=== PATIENT | female | born 1940 | race Caucasian/White ===

== ENCOUNTER 2017-05-28 19:40 | Emergency (ER) | payer MEDICARE, BC ==
[~2017-05-28 19:40] MED LIST: BACDS PO; CYPR4TAB32 PO; LANI SC; METF-409 PO; METF-420 PO; PHENA200 PO; VALS160T20 PO; [UNRECOGNIZED DRUG - CODE] TP
--- NOTE | 2017-05-28 19:46 | ER Report ---
History and Physical Time Seen By MD: 19:46 Allergies: Coded Allergies: Sulfa (Sulfonamide Antibiotics) (Verified Allergy, Intermediate, 01/20/12) latex (Verified Allergy, Mild, 01/20/12) Home Meds Active Scripts Gly/Min Oil/Petrolat,Wht/Water (LUBRIDERM SENSITIVE SKIN LOT) 473 Ml Lotion, 473 ML TP BID, #1 TAB 0 Refills Prov:INGE HARRINGTON MD 04/21/17 Cyproheptadine Hcl (CYPROHEPTADINE HCL) 4 Mg Tablet, 4 MG PO Q8H for itching, # 30 TAB 0 Refills Prov:INGE HARRINGTON MD 04/21/17 Reported Medications Metformin Hcl (METFORMIN HCL) 1,000 Mg Tablet, 1 TAB PO BID, TAB 04/21/17 Insulin Glargine (Lantus) 100 U/Ml Soln, 15 U SC QDAY, 0 Refills 06/25/07 Reviewed Nurses Notes: Yes Old Medical Records Reviewed: Yes Hx Smoking: No Hx Substance Use Disorder: No Hx Alcohol Use: No Depart Departure Referrals: GIAN KELLER DO (PCP) ZAY LECHUGA DO May 28, 2017 19:46
--- NOTE | 2017-05-28 20:06 | ER Report ---
History and Physical Time Seen By MD: 19:47 Hx. of Stated Complaint: Patient states she hurts all over since sunday night. Dx with uti last but has since stopped taking antibiotics due to adverse reactions. Stopped antibiotic last night. No flu shot. Pt states even her fingertips hurt. No SOB or NVD. HPI/ROS CHIEF COMPLAINT: Malaise HISTORY OF PRESENT ILLNESS: Patient is a 76-year-old female who presents to ED with complaint of not feeling well for the past day. She states that she was diagnosed with urinary tract infection by Dr. Parra, urologist 5 days ago. She states that she was started on Cipro and did take this until yesterday. She states that she was starting to feel achy and thought that the Cipro might be causing this. She states that she is having pain all over particularly in her arms and left leg. She denies any chest pain or shortness of breath. She has not really noted any abdominal pain, nausea, vomiting, diarrhea. She denies any cough. She has not noted any fever. She denies any marked dysuria or increased urinary frequency. REVIEW OF SYSTEMS: Constitutional: No fever, no chills. Eyes: No discharge. ENT: No sore throat. Cardiovascular: No chest pain, no palpitations. Respiratory: No cough, no shortness of breath. Gastrointestinal: No abdominal pain, no vomiting. Genitourinary: No hematuria. Musculoskeletal: History of present illness. Skin: No rashes. Neurological: No headache. Allergies: Coded Allergies: Sulfa (Sulfonamide Antibiotics) (Verified Allergy, Intermediate, 01/20/12) latex (Verified Allergy, Mild, 01/20/12) Home Meds Active Scripts Gly/Min Oil/Petrolat,Wht/Water (LUBRIDERM SENSITIVE SKIN LOT) 473 Ml Lotion, 473 ML TP BID, #1 TAB 0 Refills Prov:INGE HARRINGTON MD 04/21/17 Cyproheptadine Hcl (CYPROHEPTADINE HCL) 4 Mg Tablet, 4 MG PO Q8H for itching, # 30 TAB 0 Refills Prov:INGE HARRINGTON MD 04/21/17 Reported Medications Metformin Hcl (METFORMIN HCL) 1,000 Mg Tablet, 1 TAB PO BID, TAB 04/21/17 Insulin Glargine (Lantus) 100 U/Ml Soln, 15 U SC QDAY, 0 Refills 06/25/07 Reviewed Nurses Notes: Yes Old Medical Records Reviewed: Yes Hx Smoking: No Hx Substance Use Disorder: No Hx Alcohol Use: No Constitutional Vital Sign - Last 24 Hours 05/28/17 05/28/17 05/28/17 05/28/17 19:46 19:49 19:50 19:55 Temp 97.1 Pulse 90 86 85 Resp 20 B/P (MAP) 127/88 127/88 (101) Pulse Ox 98 98 98 O2 Delivery Room Air 05/28/17 05/28/17 05/28/17 05/28/17 20:00 20:20 20:25 20:30 Pulse 79 78 78 77 B/P (MAP) 144/80 (101) 149/84 (105) Pulse Ox 95 97 96 93 05/28/17 05/28/17 05/28/17 20:35 20:40 20:45 Pulse 77 75 77 B/P (MAP) 144/80 (101) Pulse Ox 92 92 93 Physical Exam General Appearance: The patient is alert, has no immediate need for airway protection and no signs of toxicity. Patient appears to be no acute distress. Eyes: Pupils equal and round no pallor or injection. ENT, Mouth: Mucous membranes are moist. Respiratory: There are no retractions, lungs are clear to auscultation. Cardiovascular: Regular rate and rhythm. Gastrointestinal: There is mild epigastric tenderness with palpation. No rebound or guarding present. Bowel sounds normal all 4 quadrants. Neurological: Cranial nerves II-12 intact. Skin: Warm and dry, no rashes. Musculoskeletal: Neck is supple non tender. Extremities are nontender, nonswollen and have full range of motion. Medical Decision Making Data Points Result Diagram: 05/28/17202505/28/172025 Laboratory Hematology Test 05/28/17 19:44 05/28/17 20:26 Urine Color Yellow Urine Clarity Slightly-cloudy Urine pH 6.0 pH (4.8-9.5) Urine Specific [place] 1.004 Urine Protein Negative mg/dL (NEGATIVE) Urine Glucose (UA) Negative mg/dL (NEGATIVE) Urine Ketones Negative mg/dL (NEGATIVE) Urine Blood Large (NEGATIVE) Urine Nitrite Negative (NEGATIVE) Urine Bilirubin Negative (NEGATIVE) Urine Urobilinogen Negative mg/dL (0.2-1.9) Urine Leukocyte Esterase Large (NEGATIVE) Urine RBC 20 /HPF (0-2/HPF) Urine WBC 104 /HPF (0-5/HPF) Urine WBC Clumps Few /HPF Urine Squamous Epithelial Cells Many /LPF (</=FEW) Urine Transitional Epithelial Cells Many /LPF (NONE-FEW) Urine Bacteria Negative /HPF (NONE-FEW) Urine Mucus None /HPF (NONE-FEW) Red Blood Count 3.75 M/uL (4.17-5.56) Mean Corpuscular Volume 93.7 fL (80.0-96.0) Mean Corpuscular Hemoglobin 33.8 pg (26.0-33.0) Mean Corpuscular Hemoglobin Concent 36.0 g/dL (32.0-36.0) Red Cell Distribution Width 12.3 % (11.5-14.5) Mean Platelet Volume 7.3 fL (7.2-11.1) Neutrophils (%) (Auto) 66.7 % (39.4-72.5) Lymphocytes (%) (Auto) 23.9 % (17.6-49.6) Monocytes (%) (Auto) 6.5 % (4.1-12.4) Eosinophils (%) (Auto) 1.6 % (0.4-6.7) Basophils (%) (Auto) 1.3 % (0.3-1.4) Nucleated RBC Relative Count (auto) 0.0 /100WBC Neutrophils # (Auto) 6.2 K/uL (2.0-7.4) Lymphocytes # (Auto) 2.2 K/uL (1.3-3.6) Monocytes # (Auto) 0.6 K/uL (0.3-1.0) Eosinophils # (Auto) 0.1 K/uL (0.0-0.5) Basophils # (Auto) 0.1 K/uL (0.0-0.1) Nucleated RBC Absolute Count (auto) 0.00 K/uL Sodium Level 133 mmol/L (137-145) Potassium Level 3.6 mmol/L (3.5-5.0) Chloride Level 103 mmol/L (98-107) Carbon Dioxide Level 22 mmol/L (22-31) Blood Urea Nitrogen 8 mg/dl (7-18) Creatinine 0.60 mg/dl (0.52-1.04) Glomerular Filtration Rate Calc > 60.0 Random Glucose 173 mg/dl (75-110) Calcium Level 8.7 mg/dl (8.4-10.2) Total Bilirubin 0.7 mg/dl (0.2-1.3) Aspartate Amino Transf (AST/SGOT) 21 U/L (0-35) Alanine Aminotransferase (ALT/SGPT) 33 U/L (0-56) Alkaline Phosphatase 124 U/L (0-126) Total Creatine Kinase 38 U/L (30-135) Troponin I < 0.012 ng/ml Total Protein 6.5 gm/dl (6.3-8.2) Albumin 3.2 g/dl (3.5-5.0) Lipase 31 U/L (23-300) Chemistry Test 05/28/17 19:44 05/28/17 20:26 Urine Color Yellow Urine Clarity Slightly-cloudy Urine pH 6.0 pH (4.8-9.5) Urine Specific [place] 1.004 Urine Protein Negative mg/dL (NEGATIVE) Urine Glucose (UA) Negative mg/dL (NEGATIVE) Urine Ketones Negative mg/dL (NEGATIVE) Urine Blood Large (NEGATIVE) Urine Nitrite Negative (NEGATIVE) Urine Bilirubin Negative (NEGATIVE) Urine Urobilinogen Negative mg/dL (0.2-1.9) Urine Leukocyte Esterase Large (NEGATIVE) Urine RBC 20 /HPF (0-2/HPF) Urine WBC 104 /HPF (0-5/HPF) Urine WBC Clumps Few /HPF Urine Squamous Epithelial Cells Many /LPF (</=FEW) Urine Transitional Epithelial Cells Many /LPF (NONE-FEW) Urine Bacteria Negative /HPF (NONE-FEW) Urine Mucus None /HPF (NONE-FEW) White Blood Count 9.3 k/uL (4.5-11.0) Red Blood Count 3.75 M/uL (4.17-5.56) Hemoglobin 12.7 g/dL (12.0-16.0) Hematocrit 35.2 % (34.0-47.0) Mean Corpuscular Volume 93.7 fL (80.0-96.0) Mean Corpuscular Hemoglobin 33.8 pg (26.0-33.0) Mean Corpuscular Hemoglobin Concent 36.0 g/dL (32.0-36.0) Red Cell Distribution Width 12.3 % (11.5-14.5) Platelet Count 340 K/uL (150-450) Mean Platelet Volume 7.3 fL (7.2-11.1) Neutrophils (%) (Auto) 66.7 % (39.4-72.5) Lymphocytes (%) (Auto) 23.9 % (17.6-49.6) Monocytes (%) (Auto) 6.5 % (4.1-12.4) Eosinophils (%) (Auto) 1.6 % (0.4-6.7) Basophils (%) (Auto) 1.3 % (0.3-1.4) Nucleated RBC Relative Count (auto) 0.0 /100WBC Neutrophils # (Auto) 6.2 K/uL (2.0-7.4) Lymphocytes # (Auto) 2.2 K/uL (1.3-3.6) Monocytes # (Auto) 0.6 K/uL (0.3-1.0) Eosinophils # (Auto) 0.1 K/uL (0.0-0.5) Basophils # (Auto) 0.1 K/uL (0.0-0.1) Nucleated RBC Absolute Count (auto) 0.00 K/uL Glomerular Filtration Rate Calc > 60.0 Calcium Level 8.7 mg/dl (8.4-10.2) Total Bilirubin 0.7 mg/dl (0.2-1.3) Aspartate Amino Transf (AST/SGOT) 21 U/L (0-35) Alanine Aminotransferase (ALT/SGPT) 33 U/L (0-56) Alkaline Phosphatase 124 U/L (0-126) Total Creatine Kinase 38 U/L (30-135) Troponin I < 0.012 ng/ml Total Protein 6.5 gm/dl (6.3-8.2) Albumin 3.2 g/dl (3.5-5.0) Lipase 31 U/L (23-300) Urinalysis Test 05/28/17 19:44 Urine Color Yellow Urine Clarity Slightly-cloudy Urine pH 6.0 pH (4.8-9.5) Urine Specific [place] 1.004 Urine Protein Negative mg/dL (NEGATIVE) Urine Glucose (UA) Negative mg/dL (NEGATIVE) Urine Ketones Negative mg/dL (NEGATIVE) Urine Blood Large (NEGATIVE) Urine Nitrite Negative (NEGATIVE) Urine Bilirubin Negative (NEGATIVE) Urine Urobilinogen Negative mg/dL (0.2-1.9) Urine Leukocyte Esterase Large (NEGATIVE) Urine RBC 20 /HPF (0-2/HPF) Urine WBC 104 /HPF (0-5/HPF) Urine WBC Clumps Few /HPF Urine Squamous Epithelial Cells Many /LPF (</=FEW) Urine Transitional Epithelial Cells Many /LPF (NONE-FEW) Urine Bacteria Negative /HPF (NONE-FEW) Urine Mucus None /HPF (NONE-FEW) ED Course/Re-evaluation ED Course Will obtain labs. 05/28/2017 9:01:54 pm - discussed all lab results with patient. These are essentially normal except for urinalysis which indicates a probable infection. She did discontinue her Cipro 2 days ago now so will start her on some Keflex given that she may be having some adverse reaction to the Cipro. Well-hydrated. She should follow-up with primary care provider or Dr. Parra. Decision to Disposition Date: May 28, 2017 Decision to Disposition Time: 21:02 Depart Departure Latest Vital Signs Vital Signs Date Time Temp Pulse Resp B/P (MAP) Pulse Ox O2 Delivery O2 Flow Rate FiO2 05/28/17 20:45 77 93 05/28/17 20:40 144/80 (101) 05/28/17 19:46 97.1 20 Room Air Impression: Primary Impression: Urinary tract infection Additional Impression: Myalgia Condition: Improved Disposition: HOME OR SELF-CARE Referrals: GIAN KELLER DO (PCP) New Scripts Cephalexin 500 Mg Tab (KEFLEX 500 MG TAB) 500 Mg Tablet 500 MG PO Q8H, #21 TAB Prov: ANGIE MOSES PA-C 05/28/17 Patient Instructions: Urinary Tract Infection in Women (ED) Additional Instructions: Stay well-hydrated. Follow-up with primary care provider or Dr. Parra in 2-3 days. If having any worsening or concerning symptoms may return to the emergency department. Problem Qualifiers Primary Impression: Urinary tract infection Urinary tract infection type: site unspecified Hematuria presence: without hematuria Qualified Codes: N39.0 - Urinary tract infection, site not specified ANGIE MOSES PA-C May 28, 2017 20:06
[2017-05-28 20:41] LABS: PLATELET COUNT, AUTOMATED 340 K/uL (150-450)
[2017-05-28 21:00] VITALS: BP 141/75
[2017-05-28] MEDS ORDERED: CEPH500T7 PO (21:03)
[2017-05-28] MEDS ORDERED: CEPHALEXIN 500 MG CAP TH 2 CAP/BOTTLE PO ONE (21:10)
== END 2017-05-28 21:25 | disposition home or self-care (01) ==
LOC: ER 20:08
DX: N39.0 Urinary tract infection, site not specified (principal); M79.1 Myalgia
CPT/HCPCS: 36415; 81001; 82040; 82247; 82310; 82374; 82435; 82550; 82565; 82947; 83690; 84075; 84132; 84155; 84295; 84450; 84460; 84484; 84520; 85025; 99284

== ENCOUNTER 2017-06-23 13:37 | Inpatient (IN) | payer MEDICARE, BC ==
[~2017-06-23] VITALS: Ht 162.6 cm; Wt 69.4 kg
[~2017-06-23 13:37] MED LIST changes: +CEPH500T7 PO
--- NOTE | 2017-06-23 13:53 | ER Report ---
History and Physical Time Seen By MD: 13:53 Hx. of Stated Complaint: PATIENT STATES SHE THINK SHE HAS BLOOD CLOTS IN BOTH OF HER LEGS; WEAK; N/V HPI/ROS CHIEF COMPLAINT: Left leg pain, urinary tract infection HISTORY OF PRESENT ILLNESS: 76-year-old female patient presents to emergency room with complaint of left leg pain, urinary tract infection. Patient states she has not felt well since March. She states that she's not been able to get up and move around for the last few days. She states that her leg has intermittent episodes of pain. She states she's not had any fevers, chills, nausea, vomiting or diarrhea. She states that she's been having a urinary tract infection since April. She states she's seen Dr. Parra, urologist, as well as been seen here in the emergency room. She states she's even gone down to 4: Sinemet evaluated there. She states she's received medications and nothing seems to be helping. She states that she is having significant amounts of burning with urination. Patient is concerned she has a blood clot in the left leg. REVIEW OF SYSTEMS: Respiratory: No cough, no dyspnea. Cardiovascular: No chest pain, no palpitations. Gastrointestinal: No vomiting, no abdominal pain. Musculoskeletal: As noted above. Allergies: Coded Allergies: Sulfa (Sulfonamide Antibiotics) (Verified Allergy, Intermediate, 01/20/12) latex (Verified Allergy, Mild, 01/20/12) Home Meds Active Scripts Gly/Min Oil/Petrolat,Wht/Water (LUBRIDERM SENSITIVE SKIN LOT) 473 Ml Lotion, 473 ML TP BID, #1 TAB 0 Refills Prov:INGE HARRINGTON MD 04/21/17 Reported Medications Metformin Hcl (METFORMIN HCL) 1,000 Mg Tablet, 1 TAB PO BID, TAB 04/21/17 Insulin Glargine (Lantus) 100 U/Ml Soln, 15 U SC QDAY, 0 Refills 06/25/07 Discontinued Scripts Cephalexin 500 Mg Tab (KEFLEX 500 MG TAB) 500 Mg Tablet, 500 MG PO Q8H, #21 TAB Prov:ANGIE MOSES PA-C 05/28/17 Cyproheptadine Hcl (CYPROHEPTADINE HCL) 4 Mg Tablet, 4 MG PO Q8H for itching, # 30 TAB 0 Refills Prov:INGE HARRINGTON MD 04/21/17 Past Medical/Surgical History Patient has a past medical history of hyperlipidemia, frequent UTI, left wrist fracture, diabetes. Patient has a surgical history of hysterectomy. Reviewed Nurses Notes: Yes Hx Smoking: No Hx Substance Use Disorder: No Hx Alcohol Use: No Constitutional Vital Sign - Last 24 Hours 06/23/17 06/23/17 06/23/17 06/23/17 13:48 13:49 14:00 14:07 Temp 98.4 Pulse 107 99 Resp 19 B/P (MAP) 121/75 (90) 121/75 128/68 (88) Pulse Ox 98 96 O2 Delivery Room Air 06/23/17 06/23/17 06/23/17 06/23/17 15:30 15:35 16:00 16:05 Pulse 85 84 B/P (MAP) 127/72 (90) 146/88 (107) Pulse Ox 95 89 06/23/17 06/23/17 06/23/17 06/23/17 16:30 16:35 17:00 17:05 Pulse 91 84 B/P (MAP) 143/77 (99) 140/76 (97) Pulse Ox 96 95 06/23/17 17:30 B/P (MAP) 133/90 (104) Physical Exam General Appearance: The patient is alert, has no immediate need for airway protection and no current signs of toxicity. ENT: Tympanic membranes are pearly-allen, auditory canals are patent, mucous membranes are moist. Respiratory: Chest is non tender, lungs are clear to auscultation. Cardiac: regular rate and rhythm. Gastrointestinal: Abdomen is soft and non tender, no masses, bowel sounds normal. Musculoskeletal: Neck: Neck is supple and non tender. Extremities have full range of motion and are non tender. Patient has tenderness to the left leg, there is no bruising, no swelling noted. Skin: No rashes or lesions. DIFFERENTIAL DIAGNOSIS: After history and physical exam differential diagnosis was considered for lumbar strain, neuropathy, urinary tract infection, pyelonephritis, sepsis. Medical Decision Making Data Points Result Diagram: 06/23/17 1358 06/23/17 1358 Laboratory Hematology Test 06/23/17 00:00 06/23/17 13:58 06/23/17 15:00 Urine Color Roxanna Urine Clarity Turbid Urine pH 5.0 pH (4.8-9.5) Urine Specific Gamaliel 1.010 Urine Protein 100 mg/dL (NEGATIVE) Urine Glucose (UA) Negative mg/dL (NEGATIVE) Urine Ketones Negative mg/dL (NEGATIVE) Urine Blood Large (NEGATIVE) Urine Nitrite Negative (NEGATIVE) Urine Bilirubin Negative (NEGATIVE) Urine Urobilinogen Negative mg/dL (0.2-1.9) Urine Leukocyte Esterase Moderate (NEGATIVE) Urine RBC 180 /HPF (0-2/HPF) Urine WBC 4322 /HPF (0-5/HPF) Urine WBC Clumps Mod /HPF Urine Squamous Epithelial Cells Many /LPF (</=FEW) Urine Bacteria Moderate /HPF (NONE-FEW) Urine Mucus Few /HPF (NONE-FEW) Red Blood Count 4.02 M/uL (4.17-5.56) Mean Corpuscular Volume 94.3 fL (80.0-96.0) Mean Corpuscular Hemoglobin 32.8 pg (26.0-33.0) Mean Corpuscular Hemoglobin Concent 34.8 g/dL (32.0-36.0) Red Cell Distribution Width 12.7 % (11.5-14.5) Mean Platelet Volume 8.3 fL (7.2-11.1) Neutrophils (%) (Auto) 86.2 % (39.4-72.5) Lymphocytes (%) (Auto) 7.4 % (17.6-49.6) Monocytes (%) (Auto) 5.3 % (4.1-12.4) Eosinophils (%) (Auto) 0.3 % (0.4-6.7) Basophils (%) (Auto) 0.8 % (0.3-1.4) Nucleated RBC Relative Count (auto) 0.0 /100WBC Neutrophils # (Auto) 12.3 K/uL (2.0-7.4) Lymphocytes # (Auto) 1.1 K/uL (1.3-3.6) Monocytes # (Auto) 0.7 K/uL (0.3-1.0) Eosinophils # (Auto) 0.0 K/uL (0.0-0.5) Basophils # (Auto) 0.1 K/uL (0.0-0.1) Nucleated RBC Absolute Count (auto) 0.00 K/uL Sodium Level 129 mmol/L (137-145) Potassium Level 3.7 mmol/L (3.5-5.0) Chloride Level 94 mmol/L (98-107) Carbon Dioxide Level 21 mmol/L (22-31) Blood Urea Nitrogen 23 mg/dl (7-18) Creatinine 1.30 mg/dl (0.52-1.04) Glomerular Filtration Rate Calc 40.0 Random Glucose 284 mg/dl (75-110) Calcium Level 9.0 mg/dl (8.4-10.2) Total Bilirubin 1.4 mg/dl (0.2-1.3) Aspartate Amino Transf (AST/SGOT) 31 U/L (0-35) Alanine Aminotransferase (ALT/SGPT) 44 U/L (0-56) Alkaline Phosphatase 129 U/L (0-126) Total Protein 7.3 gm/dl (6.3-8.2) Albumin 3.4 g/dl (3.5-5.0) Lactate 1.8 mmol/L (0.7-2.1) Chemistry Test 06/23/17 00:00 06/23/17 13:58 06/23/17 15:00 Urine Color Roxanna Urine Clarity Turbid Urine pH 5.0 pH (4.8-9.5) Urine Specific Gamaliel 1.010 Urine Protein 100 mg/dL (NEGATIVE) Urine Glucose (UA) Negative mg/dL (NEGATIVE) Urine Ketones Negative mg/dL (NEGATIVE) Urine Blood Large (NEGATIVE) Urine Nitrite Negative (NEGATIVE) Urine Bilirubin Negative (NEGATIVE) Urine Urobilinogen Negative mg/dL (0.2-1.9) Urine Leukocyte Esterase Moderate (NEGATIVE) Urine RBC 180 /HPF (0-2/HPF) Urine WBC 4322 /HPF (0-5/HPF) Urine WBC Clumps Mod /HPF Urine Squamous Epithelial Cells Many /LPF (</=FEW) Urine Bacteria Moderate /HPF (NONE-FEW) Urine Mucus Few /HPF (NONE-FEW) White Blood Count 14.2 k/uL (4.5-11.0) Red Blood Count 4.02 M/uL (4.17-5.56) Hemoglobin 13.2 g/dL (12.0-16.0) Hematocrit 37.9 % (34.0-47.0) Mean Corpuscular Volume 94.3 fL (80.0-96.0) Mean Corpuscular Hemoglobin 32.8 pg (26.0-33.0) Mean Corpuscular Hemoglobin Concent 34.8 g/dL (32.0-36.0) Red Cell Distribution Width 12.7 % (11.5-14.5) Platelet Count 260 K/uL (150-450) Mean Platelet Volume 8.3 fL (7.2-11.1) Neutrophils (%) (Auto) 86.2 % (39.4-72.5) Lymphocytes (%) (Auto) 7.4 % (17.6-49.6) Monocytes (%) (Auto) 5.3 % (4.1-12.4) Eosinophils (%) (Auto) 0.3 % (0.4-6.7) Basophils (%) (Auto) 0.8 % (0.3-1.4) Nucleated RBC Relative Count (auto) 0.0 /100WBC Neutrophils # (Auto) 12.3 K/uL (2.0-7.4) Lymphocytes # (Auto) 1.1 K/uL (1.3-3.6) Monocytes # (Auto) 0.7 K/uL (0.3-1.0) Eosinophils # (Auto) 0.0 K/uL (0.0-0.5) Basophils # (Auto) 0.1 K/uL (0.0-0.1) Nucleated RBC Absolute Count (auto) 0.00 K/uL Glomerular Filtration Rate Calc 40.0 Calcium Level 9.0 mg/dl (8.4-10.2) Total Bilirubin 1.4 mg/dl (0.2-1.3) Aspartate Amino Transf (AST/SGOT) 31 U/L (0-35) Alanine Aminotransferase (ALT/SGPT) 44 U/L (0-56) Alkaline Phosphatase 129 U/L (0-126) Total Protein 7.3 gm/dl (6.3-8.2) Albumin 3.4 g/dl (3.5-5.0) Lactate 1.8 mmol/L (0.7-2.1) Urinalysis Test 06/23/17 00:00 Urine Color Roxanna Urine Clarity Turbid Urine pH 5.0 pH (4.8-9.5) Urine Specific Gamaliel 1.010 Urine Protein 100 mg/dL (NEGATIVE) Urine Glucose (UA) Negative mg/dL (NEGATIVE) Urine Ketones Negative mg/dL (NEGATIVE) Urine Blood Large (NEGATIVE) Urine Nitrite Negative (NEGATIVE) Urine Bilirubin Negative (NEGATIVE) Urine Urobilinogen Negative mg/dL (0.2-1.9) Urine Leukocyte Esterase Moderate (NEGATIVE) Urine RBC 180 /HPF (0-2/HPF) Urine WBC 4322 /HPF (0-5/HPF) Urine WBC Clumps Mod /HPF Urine Squamous Epithelial Cells Many /LPF (</=FEW) Urine Bacteria Moderate /HPF (NONE-FEW) Urine Mucus Few /HPF (NONE-FEW) EKG/Imaging Imaging EXAMINATION: CT abdomen and pelvis with contrast COMPARISON: None. HISTORY: pyelonephritis PROCEDURE: Multiplanar contrast enhanced CT of the abdomen and pelvis with 75 mL intravenous Isovue 370. One of the following dose optimization techniques was utilized in the performance of this exam: Automated exposure control; adjustment of the mA and/or kV according to the patient's size; or use of an iterative reconstruction technique. Specific details can be referenced in the facility's radiology CT exam operational policy. FINDINGS: Visualized thorax: Left lower lobe 9 mm nodule. Liver: Questionable mild hepatic steatosis. Gallbladder and biliary system: Negative Spleen: Spleen size is normal. Pancreas: Negative. Adrenal glands: Negative. Kidneys and bladder: Left kidney asymmetric mild parenchymal edema with an indistinct region of heterogeneously decreased enhancement in the upper and midpole. In this region of decreased enhancement there are a few more focal regions of near absent enhancement measuring up to 14 mm which could potentially be developing phlegmon. A well-circumscribed 10 mm low-attenuation focus along the inferior margin of the decreased enhancement is more suggestive of a small cyst rather than abscess. Mild uroepithelial enhancement along the left ureter and renal pelvis. No radiopaque urolithiasis is identified. Urinary bladder wall mucosal inflammation. The right kidney is unremarkable. Vessels: Mild aortoiliac atherosclerosis. No abdominal aortic aneurysm. Portal venous system and IVC are unremarkable. Bowel and mesentery: Probable tiny hiatal hernia. No gastric distention. No small bowel obstruction. Appendix is unremarkable. No definite acute bowel or mesenteric inflammation. Sigmoid mild to moderate diverticulosis. Pelvic organs: Hysterectomy. No adnexal mass. Lymph nodes: There are a few prominent left periaortic lymph nodes are nonspecific but given the kidney inflammation are favored to be reactive. Free air/free fluid: None. Abdominal wall and osseous structures: Tiny fat-containing umbilical hernia. L4- L5 and L5-S1 moderately advanced iterative disc disease with degenerative change to lesser degree elsewhere within the visualized spine. IMPRESSION: 1. Findings consistent with a urinary tract infection and left kidney pyelonephritis possibly with a developing renal parenchymal phlegmon. No renal abscess is identified at this time. 2. Left lower lobe 9 mm nodule. Follow-up as detailed below. 3. Additional nonacute findings as described above. ==Guidelines for Management of Incidental Pulmonary Nodules Detected on CT Images: From the Fleischner Society 2017: - Nodule size > 8 mm: Low-risk: Consider CT at 3 months, PET/CT, or tissue sampling. High-risk: Consider CT at 3 months, PET/CT, or tissue sampling. http://pubs.rsna.org/doi/full/10.1148/radiol.5867444475 Report Dictated By: Jose Manuel Capone MD at 06/23/2017 4:09 PM Report E-Signed By: Jose Manuel Capone MD at 06/23/2017 4:20 PM EXAMINATION: AP pelvis with lateral left hip HISTORY: Left leg pain. COMPARISON: None. FINDINGS: Bones of the left hip demonstrate normal alignment. No evidence of fracture or dislocation. The joint space is preserved. Remainder of the bony pelvis appears radiographically intact. Normal mineralization. IMPRESSION: Negative left hip. Report Dictated By: Lokesh Jones MD at 06/23/2017 3:02 PM Report E-Signed By: Lokesh Jones MD at 06/23/2017 3:04 PM EXAMINATION: Left knee 3 views HISTORY: Left leg pain. COMPARISON: None. FINDINGS: No evidence of acute fracture or dislocation of the left knee. Normal alignment. Mild joint space narrowing in the medial compartment, with marginal osteophyte formation. The lateral joint space is preserved. Mild degenerative changes at the patellofemoral articulation. Osteopenia Soft tissues are radiographically unremarkable. IMPRESSION: 1. No acute osseous findings in the left knee. 2. Osteopenia with mild chronic degenerative changes, greatest in the medial compartment. Report Dictated By: Lokesh Jones MD at 06/23/2017 3:04 PM Report E-Signed By: Lokesh Jonse MD at 06/23/2017 3:05 PM EXAMINATION: Lumbar Spine 5 views HISTORY: Left leg pain. COMPARISON: None. FINDINGS: There are 5 lumbar-type vertebral segments. There is a mild convex-right lumbar curve, measuring 15 degrees with apex at L2. No evidence of acute fracture or subluxation along the lumbar spine. Vertebral body height is maintained. Chronic multilevel spondylotic changes. There is mild disc space narrowing at L4 -L5 and moderate disc space narrowing at L5-S1, with multilevel endplate osteophyte formation. Moderate facet arthropathy along the mid and lower lumbar facet joints. The posterior elements appear radiographically intact. No visualized pars defect on oblique views. Osteopenia. IMPRESSION: 1. No acute osseous findings along the lumbar spine. Vertebral body height is maintained. 2. Mild convex-right lumbar curve, measuring 15 degrees. 3. Chronic degenerative changes, greatest at L5-S1 where there is moderate disc space narrowing. Report Dictated By: Lokesh Jones MD at 06/23/2017 3:05 PM Report E-Signed By: Lokesh Jones MD at 06/23/2017 3:08 PM EXAMINATION: Chest 2 Views HISTORY: Sick for several months. Leg pain. COMPARISON: 08/30/2015. FINDINGS: The lungs are clear. No focal consolidation or pleural fluid. No pneumothorax. Normal cardiomediastinal silhouette, with normal heart size and pulmonary vascularity. Visualized osseous structures are unremarkable. IMPRESSION: No evidence of acute cardiopulmonary disease. Report Dictated By: Lokesh Jones MD at 06/23/2017 2:59 PM Report E-Signed By: Lokesh Jones MD at 06/23/2017 3:02 PM VENOUS DOPP LOW LEFT EXTREMITY HISTORY: 1 month of left leg pain. Concern for deep venous thrombus. COMPARISON: None. FINDINGS: Grayscale, duplex and color Doppler interrogation of the left lower extremity deep veins from common femoral vein to proximal calf was completed. The right common femoral vein was evaluated using similar technique. Common femoral vein - Negative. Femoral vein - Negative. Deep femoral vein - Negative. Popliteal vein - Negative. Visualized deep calf veins - Negative. Popliteal fossa: Negative. Contralateral (right) common femoral vein: Negative. IMPRESSION: No evidence of acute deep venous thrombosis in the visualized veins of the left lower extremity. Report Dictated By: Kraig Gurrola at 06/23/2017 5:46 PM Report E-Signed By: Kraig Gurrola at 06/23/2017 5:46 PM ED Course/Re-evaluation ED Course Patient was admitted exam room, history and physical were obtained. Differential diagnoses were considered. On examination patient had tenderness to the left lower leg. A CBC, CMP, urinalysis, x-ray of the lumbar spine, left hip, left knee were done. Patient had an elevated white count of 14,000 with left shift, CMP showed creatinine had gone up from 0.6-1.3, GFR was 40. Urinalysis showed moderate leukocyte esterase with 4300 white blood cells per high-power field, many clumps. Upon reviewing the results of the lab work including urinalysis a CT scan of the abdomen and pelvis was done to evaluate for pyelonephritis. A urine culture was obtained as well as a blood culture and lactate. Lactate was 1.8. The CT scan did show signs of urinary tract infection with left kidney pyelonephritis with possible developing phlegmon in the left kidney. I discussed the findings with the patient. I would like to go ahead and admit the patient with failure of outpatient therapy and pyelonephritis. An ultrasound of the left leg was done to rule out any DVTs. That was negative. I discussed the case with Dr. Muro, hospitalist, who requested that I speak with urology. I spoke with Dr. Quinonez, urologist, who stated that treatment with antibiotic should suffice and one of the patient admitted to hospitals. I then spoke with Dr. Muro who agreed to accept the patient for admission. Patient and family verbalized understanding and agreement with plan. Decision to Disposition Date: Jun 23, 2017 Decision to Disposition Time: 18:00 Depart Departure Latest Vital Signs Vital Signs Date Time Temp Pulse Resp B/P (MAP) Pulse Ox O2 Delivery O2 Flow Rate FiO2 06/23/17 17:30 133/90 (104) 06/23/17 17:05 84 95 06/23/17 13:49 98.4 19 Room Air Impression: Primary Impression: Pyelonephritis Condition: Condition Unchanged Disposition: Admitted from ER Referrals: GIAN KELLER DO (PCP) PARTHA OCONNOR Jun 23, 2017 13:53
[2017-06-23] MEDS ORDERED: NS(*) 0.9% 500 ML BAG 500 ML IV ONE (14:10)
[2017-06-23 14:20] LABS: PLATELET COUNT, AUTOMATED 260 K/uL (150-450)
[2017-06-23] MEDS ORDERED: IOPAMIDOL 76% 75 ML INFUS BTL 75 ML ONE (15:01)
[2017-06-23] MEDS ORDERED: NS 0.9% 20 ML SDV 20 ML ONE (15:01)
--- NOTE | 2017-06-23 15:05 | RADIOLOGY IMAGING REPORT ---
FACILITY: [facility] - [place] PATIENT NAME: Luh Schneider : 1940 MR: [id number] V: [id number] EXAM DATE: ORDERING PHYSICIAN: PARTHA OCONNOR TECHNOLOGIST: Location: [facility] - [place] Patient: Luh Schneider : 1940 Visit/Account:[id number] Date of Sevice: 06/23/2017 EXAMINATION: Chest 2 Views HISTORY: Sick for several months. Leg pain. COMPARISON: 08/30/2015. FINDINGS: The lungs are clear. No focal consolidation or pleural fluid. No pneumothorax. Normal cardiomedias tinal silhouette, with normal heart size and pulmonary vascularity. Visualized osseous structures ar e unremarkable. IMPRESSION: No evidence of acute cardiopulmonary disease. Report Dictated By: Lokesh Jones MD at 06/23/2017 2:59 PM Report E-Signed By: Lokesh Jones MD at 06/23/2017 3:02 PM WSN:[id number]
--- NOTE | 2017-06-23 15:06 | RADIOLOGY IMAGING REPORT ---
FACILITY: [facility] PATIENT NAME: Luh Schneider : 1940 MR: [id number] V: [id number] EXAM DATE: ORDERING PHYSICIAN: PARTHA OCONNOR TECHNOLOGIST: Location: [facility] Patient: Luh Schneider : 1940 Visit/Account:[id number] Date of Sevice: 06/23/2017 EXAMINATION: AP pelvis with lateral left hip HISTORY: Left leg pain. COMPARISON: None. FINDINGS: Bones of the left hip demonstrate normal alignment. No evidence of fracture or dislocation. The joint space is preserved. Remainder of the bony pelvis appears radiographically intact. Normal mineralization. IMPRESSION: Negative left hip. Report Dictated By: Lokesh Jones MD at 06/23/2017 3:02 PM Report E-Signed By: Lokesh Jones MD at 06/23/2017 3:04 PM WSN:[id number]
--- NOTE | 2017-06-23 15:08 | RADIOLOGY IMAGING REPORT ---
FACILITY: [facility] - [place] PATIENT NAME: Luh Schneider : 1940 MR: [id number] V: [id number] EXAM DATE: ORDERING PHYSICIAN: PARTHA OCONNOR TECHNOLOGIST: [place] [facility] [place]: Luh Schneider : 1940 Visit/Account:[id number] Date of Sevice: 06/23/2017 EXAMINATION: Left knee 3 views HISTORY: Left leg pain. COMPARISON: None. FINDINGS: No evidence of acute fracture or dislocation of the left knee. Normal alignment. Mild joint space narrowing in the medial compartment, with marginal osteophyte formation. The lateral joint space is preserved. Mild degenerative changes at the patellofemoral articulation. Osteopenia Soft tissues are radiographically unremarkable. IMPRESSION: 1. No acute osseous findings in the left knee. 2. Osteopenia with mild chronic degenerative changes, greatest in the medial compartment. Report Dictated By: Lokesh Jones MD at 06/23/2017 3:04 PM Report E-Signed By: Lokesh Jones MD at 06/23/2017 3:05 PM WSN:[id number]
--- NOTE | 2017-06-23 15:12 | RADIOLOGY IMAGING REPORT ---
FACILITY: [facility] PATIENT NAME: Luh Schneider : 1940 MR: [id number] V: [id number] EXAM DATE: ORDERING PHYSICIAN: PARTHA OCONNOR TECHNOLOGIST: Location: [facility] - [place] Patient: Luh Schneider : 1940 Visit/Account:[id number] Date of Sevice: 06/23/2017 EXAMINATION: Lumbar Spine 5 views HISTORY: Left leg pain. COMPARISON: None. FINDINGS: There are 5 lumbar-type vertebral segments. There is a mild convex-right lumbar curve, measuring 15 degrees with apex at L2. No evidence of acute fracture or subluxation along the lumbar spine. Vertebral body height is [place] hattie. Chronic multilevel spondylotic changes. There is mild disc space narrowing at L4-L5 and moderate disc space narrowing at L5-S1, with multilevel endplate osteophyte formation. Moderate facet arthropathy along the mid and lower lumbar facet joints. The posterior elements appear radiographically intact. N o visualized pars defect on oblique views. Osteopenia. IMPRESSION: 1. No acute osseous findings along the lumbar spine. Vertebral body height is maintained. 2. Mild convex-right lumbar curve, measuring 15 degrees. 3. Chronic degenerative changes, greatest at L5-S1 where there is moderate disc space narrowing. Report Dictated By: Lokesh Jones MD at 06/23/2017 3:05 PM Report E-Signed By: Lokesh Jones MD at 06/23/2017 3:08 PM WSN:[id number]
[2017-06-23] MEDS ORDERED: cefTRIAXone 1 GM VIAL IVP ONE (16:10)
--- NOTE | 2017-06-23 16:24 | RADIOLOGY IMAGING REPORT ---
FACILITY: PATIENT NAME: Luh Schneider : 1940 MR: [id number] V: [id number] EXAM DATE: ORDERING PHYSICIAN: PARTHA OCONNOR TECHNOLOGIST: Location: [facility] Patient: Luh Schneider : 1940 Visit/Account:[id number] Date of Sevice: 06/23/2017 EXAMINATION: CT abdomen and pelvis with contrast COMPARISON: None. HISTORY: pyelonephritis PROCEDURE: Multiplanar contrast enhanced CT of the abdomen and pelvis with 75 mL intravenous Isovue 3 70. One of the following dose optimization techniques was utilized in the performance of this exam: A utomated exposure control; adjustment of the mA and/or kV according to the patient's size; or use of an iterative reconstruction technique. Specific details can be referenced in the facility's radiolo gy CT exam operational policy. FINDINGS: Visualized thorax: Left lower lobe 9 mm nodule. Liver: Questionable mild hepatic steatosis. Gallbladder and biliary system: Negative Spleen: Spleen size is normal. Pancreas: Negative. Adrenal glands: Negative. Kidneys and bladder: Left kidney asymmetric mild parenchymal edema with an indistinct region of heter ogeneously decreased enhancement in the upper and midpole. In this region of decreased enhancement th ere are a few more focal regions of near absent enhancement measuring up to 14 mm which could potenti ally be developing phlegmon. A well-circumscribed 10 mm low-attenuation focus along the inferior edmundo in of the decreased enhancement is more suggestive of a small cyst rather than abscess. Mild uroepith elial enhancement along the left ureter and renal pelvis. No radiopaque urolithiasis is identified. U rinary bladder wall mucosal inflammation. The right kidney is unremarkable. Vessels: Mild aortoiliac atherosclerosis. No abdominal aortic aneurysm. Portal venous system and IVC are unremarkable. Bowel and mesentery: Probable tiny hiatal hernia. No gastric distention. No small bowel obstruction. Appendix is unremarkable. No definite acute bowel or mesenteric inflammation. Sigmoid mild to moderat e diverticulosis. Pelvic organs: Hysterectomy. No adnexal mass. Lymph nodes: There are a few prominent left periaortic lymph nodes are nonspecific but given the kidn ey inflammation are favored to be reactive. Free air/free fluid: None. Abdominal wall and osseous structures: Tiny fat-containing umbilical hernia. L4-L5 and L5-S1 moderate ly advanced iterative disc disease with degenerative change to lesser degree elsewhere within the vis ualized spine. IMPRESSION: 1. Findings consistent with a urinary tract infection and left kidney pyelonephritis possibly with a developing renal parenchymal phlegmon. No renal abscess is identified at this time. 2. Left lower lobe 9 mm nodule. Follow-up as detailed below. 3. Additional nonacute findings as described above. ==Guidelines for Management of Incidental Pulmonary Nodules Detected on CT Images: From the Fleischne r Society 2017: - Nodule size > 8 mm: Low-risk: Consider CT at 3 months, PET/CT, or tissue sampling. High-risk: Consider CT at 3 months, PET/CT, or tissue sampling. http://pubs.rsna.org/doi/full/10.1148/radiol.6684529643 Report Dictated By: Jose Manuel Capone MD at 06/23/2017 4:09 PM Report E-Signed By: Jose Manuel Capone MD at 06/23/2017 4:20 PM [id number]
--- NOTE | 2017-06-23 17:51 | RADIOLOGY IMAGING REPORT ---
FAC[place] [facility] [place]IENT NAME: Luh Schneider : 1940 MR: [id number] V: [id number] EXAM DATE: ORDERING PHYSICIAN: PARTHA OCONNOR TECHNOLOGIST: [place] [facility] [place]: Luh Schneider : 1940 Visit/Account:[id number] Date of Sevice: 06/23/2017 VENOUS DOPP LOW LEFT EXTREMITY HISTORY: 1 month of left leg pain. Concern for deep venous thrombus. COMPARISON: None. FINDINGS: Grayscale, duplex and color Doppler interrogation of the left lower extremity deep veins from common femoral vein to proximal calf was completed. The right common femoral vein was evaluated using simila r technique. Common femoral vein - Negative. Femoral vein - Negative. Deep femoral vein - Negative. Popliteal vein - Negative. Visualized deep calf veins - Negative. Popliteal fossa: Negative. Contralateral (right) common femoral vein: Negative. IMPRESSION: No evidence of acute deep venous thrombosis in the visualized veins of the left lower extremity. Report Dictated By: Kraig Gurrola at 06/23/2017 5:46 PM Report E-Signed By: Kraig Gurrola at 06/23/2017 5:46 PM WSN:[id number]
[2017-06-23 18:42] VITALS: BP 135/71
[2017-06-23] MEDS ORDERED: FLUSH 10 ML SYR IVP PRN (19:20)
--- NOTE | 2017-06-23 19:46 | History & Physical ---
History of Present Illness Chief Complaint Left leg pain, chills, weak History of Present Illness 76yo female with PMHx significant for type 2 DM, recurrent UTIs. She reports onset of UTI in late March 2017 with several courses of oral antibiotics. She feels that the infection never completely resolved. She would have minor improvement in her symptoms (diffuse aches and mild urinary symptoms), but would persist. She developed increasing left flank/leg pain to the point she had difficulty ambulating. Over the past 3-4 days she had poor appetite with mild nausea and one episode of vomiting. She has also had low grade fever sensations with prominent chills. She denied any cough or sputum production. No recent rashes. No diarrhea. She was evaluated in the ER and found to have persistent/recurrent pyuria. She had CT scan which showed evidence of left pyelonephritis with possible parenchymal phlegmon formation. She was recommended for admission. History Problems: (1) Type 2 diabetes mellitus Status: Chronic (2) Wrist fracture Status: Resolved (3) History of hysterectomy Status: Resolved (4) Recurrent UTI Status: Chronic Home Meds Active Scripts Gly/Min Oil/Petrolat,Wht/Water (LUBRIDERM SENSITIVE SKIN LOT) 473 Ml Lotion, 473 ML TP BID, #1 TAB 0 Refills Prov:INGE HARRINGTON MD 04/21/17 Reported Medications Metformin Hcl (METFORMIN HCL) 1,000 Mg Tablet, 1 TAB PO BID, TAB 04/21/17 Insulin Glargine (Lantus) 100 U/Ml Soln, 15 U SC QDAY, 0 Refills 06/25/07 Discontinued Scripts Cephalexin 500 Mg Tab (KEFLEX 500 MG TAB) 500 Mg Tablet, 500 MG PO Q8H, #21 TAB Prov:ANGIE MOSES PA-C 05/28/17 Cyproheptadine Hcl (CYPROHEPTADINE HCL) 4 Mg Tablet, 4 MG PO Q8H for itching, # 30 TAB 0 Refills Prov:INGE HARRINGTON MD 04/21/17 Allergies: Coded Allergies: Sulfa (Sulfonamide Antibiotics) (Verified Allergy, Intermediate, 01/20/12) latex (Verified Allergy, Mild, 01/20/12) Other Social/Family Hx She is . Retired Homemaker. She reports no significant family medical history. Hx Smoking: Yes ("maybe a pack a week") Caffeine Intake: Coffee, Tea Caffeine/Cups Per Day: 2 Hx Alcohol Use: No (extremely rare) Hx Substance Use Disorder: No Review of Systems Constitutional: Fever, Chills Neurological: Weakness, No Syncope, No Confusion Eyes: No Vision Change, No Loss of Vision ENT: No Hearing Loss, No Sinus Congestion, No Sore Throat Cardiovascular: No Chest Pain, No Palpitations, No Orthostatic Hypotension Respiratory: No Shortness of Breath, No Cough, No Wheezing Gastrointestinal: Nausea, Vomiting, No Diarrhea, No Hematemesis, No Hematochezia, No Melena, No Abdominal Pain Genitourinary: Dysuria, No Hematuria, No Urinary Incontinence Musculoskeletal: Pain, Impaired Mobility Psychiatric: No Depression, No Anxiety Exam Vital Signs Vital Signs Date Time Temp Pulse Resp B/P (MAP) Pulse Ox O2 Delivery O2 Flow Rate FiO2 06/23/17 18:42 98.2 88 16 135/71 (92) 95 Room Air General Appearance: Alert, Awake Neuro: No Gross deficits Eyes: PERRLA ENT: Oropharynx Clear Neck: No Masses Cardiovascular: Regular Rate and Rhythm, No Edema, No JVD Respiratory: Clear to Auscultation Chest: No Tenderness GI: Abd Soft and Non-Tender : Other (minimal left flank tenderness elicited) Lymph: No Adenopathy Extremities: Warm, Perfused Integumentary: Skin Intact without Lesion / Mass Psych: Alert & Oriented X3 Medical Decision Making Data Points Result Diagram: 06/23/17 1358 06/23/17 1358 Item Value Date Time Albumin 3.4 g/dl L 06/23/17 1358 Total Protein 7.3 gm/dl 06/23/17 1358 Alkaline Phosphatase 129 U/L H 06/23/17 1358 Alanine Aminotransferase (ALT/SGPT) 44 U/L 06/23/17 1358 Aspartate Amino Transf (AST/SGOT) 31 U/L 06/23/17 1358 Total Bilirubin 1.4 mg/dl H 06/23/17 1358 Calcium Level 9.0 mg/dl 06/23/17 1358 Lactate 1.8 mmol/L 06/23/17 1500 Urine Mucus Few /HPF 06/23/17 0000 Urine Bacteria Moderate /HPF H 06/23/17 0000 Urine Squamous Epithelial Cells Many /LPF H 06/23/17 0000 Urine WBC Clumps Mod /HPF 06/23/17 Urine WBC 4322 /HPF 06/23/17 Urine RBC 180 /HPF 06/23/17 Urine Leukocyte Esterase Moderate H 06/23/17 Urine Urobilinogen Negative mg/dL 06/23/17 Urine Bilirubin Negative 06/23/17 Urine Nitrite Negative 06/23/17 Urine Blood Large 06/23/17 Urine Ketones Negative mg/dL 06/23/17 Urine Glucose (UA) Negative mg/dL 06/23/17 Urine Specific Kun[place] 1.010 06/23/17 Urine Protein 100 mg/dL 06/23/17 Urine pH 5.0 pH 06/23/17 Urine Clarity Turbid 06/23/17 Urine Color Roxanna 06/23/17 EKG / Imaging Imaging PATIENT NAME: Luh Schneider : 1940 MR: [id number] V: [id number] EXAM DATE: ORDERING PHYSICIAN: PARTHA OCONNOR TECHNOLOGIST: Location: [facility] Patient: Luh Schneider : 1940 Visit/Account:[id number] Date of Sevice: 06/23/2017 EXAMINATION: CT abdomen and pelvis with contrast COMPARISON: None. HISTORY: pyelonephritis PROCEDURE: Multiplanar contrast enhanced CT of the abdomen and pelvis with 75 mL intravenous Isovue 370. One of the following dose optimization techniques was utilized in the performance of this exam: Automated exposure control; adjustment of the mA and/or kV according to the patient's size; or use of an iterative reconstruction technique. Specific details can be referenced in the facility's radiology CT exam operational policy. FINDINGS: Visualized thorax: Left lower lobe 9 mm nodule. Liver: Questionable mild hepatic steatosis. Gallbladder and biliary system: Negative Spleen: Spleen size is normal. Pancreas: Negative. Adrenal glands: Negative. Kidneys and bladder: Left kidney asymmetric mild parenchymal edema with an indistinct region of heterogeneously decreased enhancement in the upper and midpole. In this region of decreased enhancement there are a few more focal regions of near absent enhancement measuring up to 14 mm which could potentially be developing phlegmon. A well-circumscribed 10 mm low-attenuation focus along the inferior margin of the decreased enhancement is more suggestive of a small cyst rather than abscess. Mild uroepithelial enhancement along the left ureter and renal pelvis. No radiopaque urolithiasis is identified. Urinary bladder wall mucosal inflammation. The right kidney is unremarkable. Vessels: Mild aortoiliac atherosclerosis. No abdominal aortic aneurysm. Portal venous system and IVC are unremarkable. Bowel and mesentery: Probable tiny hiatal hernia. No gastric distention. No small bowel obstruction. Appendix is unremarkable. No definite acute bowel or mesenteric inflammation. Sigmoid mild to moderate diverticulosis. Pelvic organs: Hysterectomy. No adnexal mass. Lymph nodes: There are a few prominent left periaortic lymph nodes are nonspecific but given the kidney inflammation are favored to be reactive. Free air/free fluid: None. Abdominal wall and osseous structures: Tiny fat-containing umbilical hernia. L4- L5 and L5-S1 moderately advanced iterative disc disease with degenerative change to lesser degree elsewhere within the visualized spine. IMPRESSION: 1. Findings consistent with a urinary tract infection and left kidney pyelonephritis possibly with a developing renal parenchymal phlegmon. No renal abscess is identified at this time. 2. Left lower lobe 9 mm nodule. Follow-up as detailed below. 3. Additional nonacute findings as described above. ==Guidelines for Management of Incidental Pulmonary Nodules Detected on CT Images: From the Fleischner Society 2017: - Nodule size > 8 mm: Low-risk: Consider CT at 3 months, PET/CT, or tissue sampling. High-risk: Consider CT at 3 months, PET/CT, or tissue sampling. http://pubs.rsna.org/doi/full/10.1148/radiol.2041121145 Report Dictated By: Jose Manuel Capone MD at 06/23/2017 4:09 PM Report E-Signed By: Jose Manuel Capone MD at 06/23/2017 4:20 PM [id number] Assessment and Plan Problems: (1) Pyelonephritis Status: Acute Assessment & Plan: It appears she has a left pyelonephritis refractory to outpatient therapy. Will get her started on broad spectrum IV antibiotics with cefepime and vancomycin. Cultures of blood and urine have been done. It also looks like she could have early phlegmon/abscess type changes. Will need to have urology see. (2) Type 2 diabetes mellitus Status: Chronic Assessment & Plan: Place on ADA diet. Hold metformin for now (she had IV contrast). Will place on Lantus 15 units SQ qHS. Check fingerstick glucoses and use SSI as needed. Copies to: GIAN KELLER DO Venous Thromboembolism Antithrombotics Is Pt On Any Antithrombotics?: Yes Exam Sepsis Risk: No Definite Risk CONNOR STERLING MD Jun 23, 2017 19:46
[2017-06-23] MEDS: ACETAMIN/CODEINE #3 300-30 MG PO PRN (20:00)
[2017-06-23] MEDS: NS(*) 0.9% 1000 ML BAG 1,000 ML IV PRN (21:20)
[2017-06-23] MEDS: CEFEPIME HCL 2 GM VIAL IVP SCH (21:21)
[2017-06-23] MEDS: INSULIN GLARGINE 100 U/ML 3 ML PEN SUBQ SCH (21:22)
[2017-06-23] MEDS: INSULIN HUM LISPRO 100 UN/ML 3 ML VIAL SUBQ PRN (21:34)
[2017-06-23] MEDS ORDERED: VANCOMYCIN(*) 1 GM VIAL 1 GM, VANCOMYCIN (*) 0.5 GM VIAL 0.2 GM in NS(*) 0.9% 250 ML BA... IVPB SCH (22:00)
[2017-06-23 22:48] VITALS: BP 118/66
[2017-06-24 00:09] VITALS: Ht 162.6 cm; Wt 69.4 kg
[2017-06-24 02:13] VITALS: BP 129/73
[2017-06-24 05:59] LABS: PLATELET COUNT, AUTOMATED 196 K/uL (150-450)
[2017-06-24 07:15] VITALS: BP 107/64
--- NOTE | 2017-06-24 07:48 | Hospitalist Progress Note ---
Physical Exam Vital Signs Date Time Temp Pulse Resp B/P (MAP) Pulse Ox O2 Delivery O2 Flow Rate FiO2 06/24/17 07:16 Room Air 06/24/17 07:15 98.8 85 16 107/64 (78) 95 06/23/17 18:42 3.0 Result Diagram: 06/24/1745 06/24/17544 Assessment and Plan Problems: (1) Pyelonephritis Status: Acute Assessment & Plan: It appears she has a left pyelonephritis refractory to outpatient therapy. Will get her started on broad spectrum IV antibiotics with cefepime and vancomycin. Cultures of blood and urine have been done. It also looks like she could have early phlegmon/abscess type changes. Will need to have urology see. (2) Type 2 diabetes mellitus Status: Chronic Assessment & Plan: Place on ADA diet. Hold metformin for now (she had IV contrast). Will place on Lantus 15 units SQ qHS. Check fingerstick glucoses and use SSI as needed. (3) Pulmonary nodule Status: Acute Exam Sepsis Risk: No Definite Risk ABRIL STERLING MD Jun 24, 2017 07:48
[2017-06-24] MEDS: ENOXAPARIN 40 MG/0.4ML SYR SC SCH (08:30)
[2017-06-24] MEDS: INSULIN HUM LISPRO 100 UN/ML 3 ML VIAL SUBQ PRN ×2 (08:31→11:25)
[2017-06-24] MEDS: ACETAMIN/CODEINE #3 300-30 MG PO PRN ×2 (08:33→18:15)
[2017-06-24] MEDS: NS(*) 0.9% 1000 ML BAG 1,000 ML IV PRN ×2 (08:34→21:26)
[2017-06-24] MEDS: CEFEPIME HCL 2 GM VIAL IVP SCH ×2 (09:22→21:16)
--- NOTE | 2017-06-24 10:10 | Hospitalist Progress Note ---
Subjective Progress Notes Subjective The patient states she is feeling a bit better today. Her L thigh pain is not as severe but still present. No chills. Physical Exam Vital Signs Date Time Temp Pulse Resp B/P (MAP) Pulse Ox O2 Delivery O2 Flow Rate FiO2 06/24/17 07:16 Room Air 06/24/17 07:15 98.8 85 16 107/64 (78) 95 06/23/17 18:42 3.0 Intake and Output 06/25/17 07:00 Intake Total 301 ml Balance 301 ml IV Total 301 ml General Appearance: Alert, Awake, No Acute Distress, Afebrile Neuro: No Gross deficits Eyes: PERRLA Cardiovascular: Regular Rate and Rhythm Respiratory: Clear to Auscultation GI: Soft and Non-Tender Extremities: Warm, Perfused Psych: Appropriate Mood & Affect Result Diagram: 06/24/1754406/24/17544 Assessment and Plan Problems: (1) Pyelonephritis Status: Acute Assessment & Plan: It appears she has a left pyelonephritis refractory to outpatient therapy. Will get her started on broad spectrum IV antibiotics with cefepime and vancomycin. Cultures of blood are no growth to date, and urine culture is pending. It also looks like she could have early phlegmon/abscess type changes. Dr. Quinonez has been consulted to follow. (2) Type 2 diabetes mellitus Status: Chronic Assessment & Plan: Place on ADA diet. Hold metformin for now (she had IV contrast on 06/23). Will place on Lantus 15 units SQ qHS. Check fingerstick glucoses and use SSI as needed. (3) Pulmonary nodule Status: Acute Assessment & Plan: A 9mm pulmonary nodule noted on CT. She will need a repeat CT of the chest in 3 months. She does smoke but not every day per her report. Time Spent on Plan of Care: < 30 min Exam Sepsis Risk: No Definite Risk ABRIL STERLING MD Jun 24, 2017 10:10
[2017-06-24 11:14] VITALS: BP 112/67
--- NOTE | 2017-06-24 11:17 | Medical Nutrition Therapy ---
Nutrition Anthropometrics Height (Inches): 64.00 Height (Calculated Centimeters: 162.705723 Weight (Pounds): 153 Weight (Calculated Kilograms): 69.400 BMI Calculated: 26.26 Todd Nutrition Score: Adequate Todd Nutrition Risk Score: 17 Dietary Referral Nutrition Risk Factors: Recent Nutrition Impact Nutrition Risk Comment: n/v x a mo Physical Findings Physical Appearance: Overweight BMI 25-29 Skin Appearance Skin Appearance: Edema Edema Location Modifier: Edema Location: Type of Edema: Degree of Edema: Gastrointestinal Symptoms GI Symtoms: Appetite Changes Tube Present: Bowel Sounds: Recent Bowel Pattern: Stool Characteristics: Nutrition/Food History Decreased Appetite, N/V Nutritional Diagnosis Nutritional Risk Acuity 1: Acute/ES Renal Nutritional Risk Acuity 3: Nausea Past Medical History: Type 2 diabetes mellitus, Wrist fracture, hysterectomy, Recurrent UTI Nutritional Acuity: 1-High Nutrition Diagnosis: Inadequate Food Intake Nutrition Etiology: Physiological Causes Nutrition Problem/Etiology/Sym: Inadequate Oral Intake related to decreased ability to consume sufficient energy, e.g. decreased appetite prior to admit AEB reports of insufficient intake of energy from diet when compared to requirements. Energy Requirement: 1650 (Crenshaw-St Jeor: Actual BW X 1.4) Protein Requirement: 56 (Actual BW Kg X .8) Fluid Requirement: 1650 Diet Type: Diabetic Nutrition Intervention: Cont diet as ordered Nutrition Monitoring & Eval Nutrition Goals: Eat 75-100% Meal RD Patient Assessment Time: [address] Assessment Type: RD Assessment Patient Nutrition Acuity: 1-High Follow Up Date: Jun 26, 2017 Nutritional Comment: Pt admitted for Pyelonephritis. Overwt with BMI of 26.3. High WBC, Alb 2.4, Glu 189, High BUN/Creat. Lantus 15u q HS, Lispro SSI. Receiving Diabetes Diet with no reports of intake. Follow intake, labs, etc. PRINCESS WISE Jun 24, 2017 11:17
[2017-06-24 15:06] VITALS: BP 122/67
[2017-06-24 18:11] VITALS: BP 114/62
[2017-06-24] MEDS: INSULIN GLARGINE 100 U/ML 3 ML PEN SUBQ SCH (21:22)
[2017-06-24] MEDS ORDERED: VANCOMYCIN(*) 1 GM VIAL 1 GM, VANCOMYCIN (*) 0.5 GM VIAL 0.2 GM in NS(*) 0.9% 250 ML BA... IVPB SCH ×2 (22:00)
[2017-06-24 23:06] VITALS: BP 122/76
[2017-06-25 02:31] VITALS: BP 133/84
[2017-06-25 06:18] LABS: PLATELET COUNT, AUTOMATED 217 K/uL (150-450)
[2017-06-25] MEDS: NS(*) 0.9% 1000 ML BAG 1,000 ML IV PRN (07:39)
[2017-06-25 07:43] VITALS: BP 132/82
[2017-06-25] MEDS ORDERED: CEFEPIME HCL 2 GM VIAL IVP SCH (09:00)
[2017-06-25] MEDS: PROMETHAZINE 25 MG/ML 1 ML AMP IVP PRN (09:45)
[2017-06-25] MEDS: ENOXAPARIN 40 MG/0.4ML SYR SC SCH (09:46)
[2017-06-25] MEDS: ACETAMIN/CODEINE #3 300-30 MG PO PRN ×3 (10:08→22:15)
--- NOTE | 2017-06-25 11:14 | Hospitalist Progress Note ---
Subjective Progress Notes Subjective This patient was admitted for pyelonephritis. She complains of nausea this morning. Patient Complains of: Cardiovascular: No: Chest Pain Respiratory: No: Shortness of Breath Physical Exam Vital Signs Date Time Temp Pulse Resp B/P (MAP) Pulse Ox O2 Delivery O2 Flow Rate FiO2 06/25/17 08:23 91 06/25/17 08:02 Room Air 06/25/17 07:43 98.3 83 18 132/82 (99) 06/23/17 18:42 3.0 Intake and Output 06/26/17 07:00 Intake Total 0 ml Balance 0 ml Intake Oral 0 ml Neuro: No Gross deficits Eyes: PERRLA Cardiovascular: Regular Rate and Rhythm Respiratory: Clear to Auscultation Extremities: No Edema Integumentary: No Cyanosis Result Diagram: 06/25/17 0542 06/25/17 0542 Item Value Date Time Urine Culture - Final Complete 06/23/17 0000 Clean Catch Midstream Ur Klebsiella Pneumoniae Assessment and Plan Problems: (1) Pyelonephritis Status: Acute Assessment & Plan: She did present with urinary symptoms. She also had an elevated WBC and her CT scan showed findings consistent with pyelonephritis. Her urine sample was contaminated, but did grow Klebsiella. She has been on empiric treatment with cefepime and vancomycin. The vancomycin was discontinued. She can likely convert to oral cephalosporins once she is able to tolerate oral intake. (2) Type 2 diabetes mellitus Status: Chronic Assessment & Plan: She is on chronic treatment with Lantus and metformin. The metformin has been on hold secondary to IV contrast. She is on the Lantus and sliding scale level #1. (3) Acute renal failure (4) Pulmonary nodule Status: Acute Assessment & Plan: A CT scan showed a 9mm pulmonary nodule. She will require a repeat CT of the chest in 3 months. Exam Sepsis Risk: No Definite Risk AMIE ROMAN DO Jun 25, 2017 11:14
[2017-06-25 15:14] VITALS: BP 137/71
[2017-06-25] MEDS: INSULIN GLARGINE 100 U/ML 3 ML PEN SUBQ SCH (21:12)
[2017-06-25] MEDS: INSULIN HUM LISPRO 100 UN/ML 3 ML VIAL SUBQ PRN (21:13)
[2017-06-25 21:24] VITALS: BP 125/70
[2017-06-26 02:56] VITALS: BP 116/74
[2017-06-26 05:43] LABS: PLATELET COUNT, AUTOMATED 259 K/uL (150-450)
--- NOTE | 2017-06-26 06:55 | CONSULTATION ---
EVENT DATE: June 25, 2017 CHIEF COMPLAINT Urinary tract infection. HISTORY OF PRESENT ILLNESS Patient is a 76-year-old white female with a history of type 2 diabetes and recurrent urinary tract infections who presented to the emergency room on June 23, 2017 with chills, malaise and left leg pain. She was evaluated in the emergency room. A urinalysis was performed, which was grossly infected. A CT scan performed showed questionable parenchymal phlegmon formation on the left side, but no definitive abscess. Her creatinine was elevated from her baseline of 0.6 to 1.3, and she had a white count of 14.2 with a left shift. Both blood and urine cultures were obtained, and she was started on broad spectrum antibiotics with cefepime and vancomycin. Since hospitalization, she has remained afebrile. She currently has no flank or abdominal pain, but does complain of nausea. She also states she is voiding without difficulty without hematuria or significant dysuria. The patient has had no recent upper tract imaging tests performed at [facility]. She is being followed by Dr. Parra as an outpatient for recurrent urinary tract infections. An I&O cath was performed on May 22, 2017, which revealed greater than 100,000 Klebsiella pneumonia, which was resistant to ampicillin. The patient was subsequently started on ciprofloxacin, but that was only taken for 2-3 days before she was switched over to Keflex. The patient was seen last in the emergency room on May 28, 2017 with continued malaise. At that time, her creatinine was normal at 0.6, and her white count was 9300. She was encouraged to continue her medications and follow up with Dr. Parra, which she had done and saw him approximately 2-3 weeks ago, and at that point was having significant improvement. However, several days prior to admission, she began to feel ill with decreased energy. PAST MEDICAL HISTORY Type 2 diabetes and urinary tract infections. PAST SURGICAL HISTORY Hysterectomy and wrist fracture. MEDICATIONS Metformin insulin. ALLERGIES SULFA and LATEX. SOCIAL HISTORY Patient lives in [place], [place]. She is . She does report tobacco use. REVIEW OF SYSTEMS Patient denies kidney stones, productive cough, chest pain, change in weight, gross hematuria, liver disease, pneumaturia, change in bowel habits or chronic headaches. PHYSICAL EXAMINATION GENERAL: Patient is an elderly female in no acute distress. HEENT: Normocephalic, atraumatic. CHEST: Clear to auscultation bilaterally. CARDIOVASCULAR: Regular rate and rhythm. ABDOMEN: Soft, nontender, no masses are palpated. BACK: Normal-appearing spine. She has no CVAT. EXTREMITIES: Without clubbing, cyanosis or edema. She has negative Homans sign. NEUROLOGICAL: Nonfocal. IMPRESSION 76-year-old white female with history of recurrent urinary tract infections with now an episode of left pyelonephritis. After review of her CT scan, it appears she has some parenchymal changes consistent with possible early phlegmon versus interstitial edema consistent with pyelonephritis. Given the fact that she is clinically stable, will recommend broad spectrum antibiotics, IV hydration. RECOMMENDATIONS Continue broad spectrum antibiotics until urine culture returns and then treat with appropriate sensitivity for two weeks. She will also need a repeat imaging modality in 2-4 weeks, depending on her clinical response. If she remains febrile or is not improving, the next 2-3 days, will likely perform imaging modality earlier. If she does have a developing abscess, would consider percutaneous drainage. I have spoken with Dr. Parra concerning Ms. Schneider, and he is aware of her conditions and has agreed to follow up with her as an outpatient. JOSE D
[2017-06-26 07:34] VITALS: BP 116/85
[2017-06-26] MEDS: ENOXAPARIN 40 MG/0.4ML SYR SC SCH (09:41)
[2017-06-26] MEDS: FAMOTIDINE 20 MG TAB PO SCH ×2 (10:16→21:15)
[2017-06-26] MEDS: LEVOFLOXACIN/D5W 750 MG/150 ML 150 ML IVPB SCH (10:17)
[2017-06-26] MEDS: ACETAMINOPHEN 325 MG TAB PO PRN ×2 (10:35→18:19)
[2017-06-26 11:00] VITALS: BP 130/94
--- NOTE | 2017-06-26 11:25 | Hospitalist Progress Note ---
Subjective Progress Notes Subjective She reports improvement in appetite and nausea. No concerns from staff. Physical Exam Vital Signs Date Time Temp Pulse Resp B/P (MAP) Pulse Ox O2 Delivery O2 Flow Rate FiO2 06/26/17 11:00 98.5 76 16 130/94 (106) 97 Room Air 06/23/17 18:42 3.0 Intake and Output 06/27/17 07:00 # Voids 2 General Appearance: Alert, Awake, No Acute Distress GI: Soft and Non-Tender : No CVA Tenderness Extremities: No Edema Result Diagram: 06/26/1752206/26/17522 Assessment and Plan Problems: (1) Pyelonephritis Status: Acute Assessment & Plan: She did present with urinary symptoms and a history of multiple courses of antibiotics (e.g. Cipro, amoxicillin, and Keflex) since late March for a UTI that doesn't appear to resolve. She also had an elevated WBC and her CT scan showed findings consistent with pyelonephritis with a possible developing parenchymal phlegmon. Her urine sample was contaminated, but did grow Klebsiella. She has been on empiric treatment with cefepime and vancomycin. The vancomycin and cefepime discontinued. She is now on IV levofloxacin. We are awaiting a discharge summary from [facility]. (2) Type 2 diabetes mellitus Status: Chronic Assessment & Plan: She is on chronic treatment with Lantus and metformin. The metformin has been on hold secondary to IV contrast and elevated creatinine. She is on the Lantus and sliding scale level #1. (3) Acute renal failure Assessment & Plan: She presented with a creatinine of 1.3 and her baseline is 0.6. Likely related to dehydration. She has received about 4 liters of IVF and is now saline locked. Will follow. (4) Pulmonary nodule Status: Acute Assessment & Plan: A CT scan showed a 9mm pulmonary nodule. She will require a repeat CT of the chest in 3 months. Exam Sepsis Risk: No Definite Risk KEHINDE CALHOUN MD Jun 26, 2017 11:25
--- NOTE | 2017-06-26 16:19 | Medical Nutrition Therapy ---
Nutrition Anthropometrics Height (Inches): 64.00 Height (Calculated Centimeters: 162.928631 Weight (Pounds): 153 Weight (Calculated Kilograms): 69.400 BMI Calculated: 26.26 Todd Nutrition Score: Adequate Todd Nutrition Risk Score: 18 Dietary Referral Nutrition Risk Factors: Recent Nutrition Impact Nutrition Risk Comment: n/v x a mo Physical Findings Physical Appearance: Overweight BMI 25-29 Skin Appearance Skin Appearance: Edema Edema Location Modifier: Edema Location: Type of Edema: Degree of Edema: Gastrointestinal Symptoms GI Symtoms: Nausea, Vomiting Tube Present: Bowel Sounds: Recent Bowel Pattern: Stool Characteristics: Nutrition/Food History Improving Nutritional Diagnosis Nutritional Risk Acuity 1: Acute/ES Renal Nutritional Risk Acuity 3: Nausea Past Medical History: Type 2 diabetes mellitus, Wrist fracture, hysterectomy, Recurrent UTI Nutritional Acuity: 1-High Nutrition Diagnosis: Inadequate Food Intake Nutrition Etiology: Physiological Causes Nutrition Problem/Etiology/Sym: Inadequate Oral Intake related to decreased ability to consume sufficient energy, e.g. decreased appetite prior to admit AEB reports of insufficient intake of energy from diet when compared to requirements. Energy Requirement: 1650 ([place]-St Jeor: Actual BW X 1.4) Protein Requirement: 56 (Actual BW Kg X .8) Fluid Requirement: 1650 Diet Type: Diabetic Nutrition Intervention: Cont diet as ordered Diet Comment To RSA: PLEASE INCLUDE PROTEIN POWDER IN APPROPRIATE FOODS Nutrition Monitoring & Eval Nutrition Goals: Eat 50-100% Meal Nutrition Follow-Up: Fair Intake RD Patient Assessment Time: [address] Assessment Type: RD Re-Assessment Patient Nutrition Acuity: 1-High Follow Up Date: Jun 29, 2017 Nutritional Comment: Pt admitted for Pyelonephritis. Overwt with BMI of 26.3. High WBC, Alb 2.4, Glu 189, High BUN/Creat. Lantus 15u q HS, Lispro SSI. Receiving Diabetes Diet with no reports of intake. Follow intake, labs, etc. 06/26) Pt. admitted for pyelonephritis. Pt has T2DM, acute renal failure, pulmonary nodule and recurrent UTI's. PMH: hypercholesterolemia Labs: 06/26) Na 136, Cre 1.2, GFR 43.9, Ca 8.3, WBGlu 115 06/24) Alb 2.4. Nursing reports nausea and vomitting, increased confusion. Po intake 25% x 6 meals however MD reports appetite is increasing. Wt remains stable. Continue to monitor labs, wt, po intake. Recommend protein powder in appropriate foods. ULISES FOURNIER Jun 26, 2017 15:56
[2017-06-26 19:12] VITALS: BP 159/84
[2017-06-26] MEDS: INSULIN GLARGINE 100 U/ML 3 ML PEN SUBQ SCH (21:16)
[2017-06-26 21:20] VITALS: BP 145/89
[2017-06-27 06:16] VITALS: BP 143/76
[2017-06-27] MEDS: PROMETHAZINE 25 MG/ML 1 ML AMP IVP PRN (06:29)
[2017-06-27 07:23] VITALS: BP 162/82
[2017-06-27] MEDS ORDERED: [UNRECOGNIZED DRUG - OTHER] IR ONE ×2 (08:45→08:50)
[2017-06-27] MEDS ORDERED: NS IR ONE ×2 (08:45→08:50)
[2017-06-27] MEDS ORDERED: NEOMYCIN IR ONE ×2 (08:45→08:50)
[2017-06-27] MEDS: FAMOTIDINE 20 MG TAB PO SCH ×2 (09:02→21:34)
[2017-06-27] MEDS: ENOXAPARIN 40 MG/0.4ML SYR SC SCH (09:02)
[2017-06-27] MEDS ORDERED: NS 0.9% 3000 ML IRRIGATION BAG 3,000 ML IR ONE ×3 (09:40→23:44)
--- NOTE | 2017-06-27 12:24 | Hospitalist Progress Note ---
Subjective Progress Notes Subjective Her pain has been improved. She has been more mobile. No fever. Physical Exam Vital Signs Date Time Temp Pulse Resp B/P (MAP) Pulse Ox O2 Delivery O2 Flow Rate FiO2 06/27/17 07:31 96 06/27/17 07:26 Room Air 06/27/17 07:23 98.1 73 17 162/82 (108) 06/23/17 18:42 3.0 Intake and Output 06/28/17 07:00 Intake Total 440 ml Balance 440 ml Intake Oral 440 ml # Voids 1 General Appearance: Alert, Awake Cardiovascular: Regular Rate and Rhythm Respiratory: Clear to Auscultation GI: Soft and Non-Tender Extremities: Warm, Perfused Result Diagram: 06/26/1752206/26/17522 Assessment and Plan Problems: (1) Pyelonephritis Status: Acute Assessment & Plan: She did present with urinary symptoms and a history of multiple courses of antibiotics (e.g. Cipro, amoxicillin, and Keflex) since late March for a UTI that doesn't appear to resolve. She also had an elevated WBC and her CT scan showed findings consistent with pyelonephritis with a possible developing parenchymal phlegmon. Her urine sample was contaminated, but did grow Klebsiella. She has been on empiric treatment with cefepime and vancomycin. The vancomycin and cefepime were changed to IV levofloxacin based on the sensitivities. We are awaiting a discharge summary from [facility] regarding work-up while she was there. Dr. Parra is following as well. (2) Type 2 diabetes mellitus Status: Chronic Assessment & Plan: She is on chronic treatment with Lantus and metformin. The metformin has been on hold secondary to IV contrast and elevated creatinine. She is on the Lantus and sliding scale level #1. (3) Acute renal failure Assessment & Plan: She presented with a creatinine of 1.3 and her baseline has been 0.6. Likely related to dehydration, but may be secondary to the parenchymal involvement with the pyelonephritis. Yesterday her creatinine was 1.2. Will follow. (4) Pulmonary nodule Status: Acute Assessment & Plan: A CT scan showed a 9mm pulmonary nodule. She will require a repeat CT of the chest in 3 months. Exam Sepsis Risk: No Definite Risk CONNOR STERLING MD Jun 27, 2017 12:24
[2017-06-27 15:00] VITALS: BP 150/80
[2017-06-27] MEDS: INSULIN HUM LISPRO 100 UN/ML 3 ML VIAL SUBQ PRN ×2 (16:31→21:34)
[2017-06-27] MEDS: ACETAMIN/CODEINE #3 300-30 MG PO PRN (17:43)
[2017-06-27] MEDS: INSULIN GLARGINE 100 U/ML 3 ML PEN SUBQ SCH (21:34)
[2017-06-27 21:49] VITALS: BP 150/76
[2017-06-28 02:17] VITALS: BP 137/76
[2017-06-28 06:17] LABS: PLATELET COUNT, AUTOMATED 293 K/uL (150-450)
[2017-06-28 07:10] VITALS: BP 142/77
[2017-06-28] MEDS: ENOXAPARIN 40 MG/0.4ML SYR SC SCH (08:28)
[2017-06-28] MEDS: FAMOTIDINE 20 MG TAB PO SCH ×2 (08:28→21:02)
[2017-06-28] MEDS: LEVOFLOXACIN/D5W 750 MG/150 ML 150 ML IVPB SCH (09:56)
[2017-06-28] MEDS: INSULIN HUM LISPRO 100 UN/ML 3 ML VIAL SUBQ PRN (11:32)
[2017-06-28] MEDS: ACETAMIN/CODEINE #3 300-30 MG PO PRN (12:54)
[2017-06-28] MEDS ORDERED: NS 0.9% 3000 ML IRRIGATION BAG 3,000 ML IR ONE ×2 (13:43→22:28)
[2017-06-28 15:04] VITALS: BP 153/97
[2017-06-28] MEDS: ACETAMINOPHEN 325 MG TAB PO PRN (15:07)
--- NOTE | 2017-06-28 16:15 | Hospitalist Progress Note ---
Subjective Progress Notes Subjective Overall feeling much better. Eating well. No concerns from staff. Physical Exam Vital Signs Date Time Temp Pulse Resp B/P (MAP) Pulse Ox O2 Delivery O2 Flow Rate FiO2 06/28/17 15:04 98.1 72 16 153/97 (115) 94 Room Air Intake and Output 06/29/17 07:00 Intake Total 5130 ml Output Total 2050 ml Balance 3080 ml Intake Oral 480 ml IV Total 3150 ml Other 1500 ml Output Urine Total 550 ml Other 1500 ml General Appearance: Alert, Awake, No Acute Distress Result Diagram: 06/28/17 0557 06/28/17 0557 Assessment and Plan Problems: (1) Pyelonephritis Status: Acute Assessment & Plan: She did present with urinary symptoms and a history of multiple courses of antibiotics (e.g. Cipro, amoxicillin, and Keflex) since late March for a UTI that doesn't appear to resolve. She also had an elevated WBC and her CT scan showed findings consistent with pyelonephritis with a possible developing parenchymal phlegmon. Her urine sample was contaminated, but did grow Klebsiella. She has been on empiric treatment with cefepime and vancomycin. The vancomycin and cefepime were changed to IV levofloxacin based on the sensitivities. We are awaiting a discharge summary from [facility] regarding work-up while she was there. Dr. Parra is following as well. (2) Type 2 diabetes mellitus Status: Chronic Assessment & Plan: She is on chronic treatment with Lantus and metformin. The metformin has been on hold secondary to IV contrast and elevated creatinine. She is on the Lantus and sliding scale level #1. (3) Acute renal failure Assessment & Plan: She presented with a creatinine of 1.3 and her baseline has been 0.6. Likely related to dehydration, but may be secondary to the parenchymal involvement with the pyelonephritis. Creatinine was 1.2. Will follow. (4) Pulmonary nodule Status: Acute Assessment & Plan: A CT scan showed a 9mm pulmonary nodule. She will require a repeat CT of the chest in 3 months. Exam Sepsis Risk: No Definite Risk KEHINDE CALHOUN MD Jun 28, 2017 16:15
[2017-06-28 20:48] VITALS: BP 150/108
[2017-06-28] MEDS: INSULIN GLARGINE 100 U/ML 3 ML PEN SUBQ SCH (21:03)
[2017-06-29 03:04] VITALS: BP 153/82
[2017-06-29 07:20] VITALS: BP 149/83
[2017-06-29] MEDS: FAMOTIDINE 20 MG TAB PO SCH (08:34)
[2017-06-29] MEDS: ENOXAPARIN 40 MG/0.4ML SYR SC SCH (08:35)
[2017-06-29] MEDS: PROMETHAZINE 25 MG/ML 1 ML AMP IVP PRN (09:47)
[2017-06-29] MEDS: ACETAMIN/CODEINE #3 300-30 MG PO PRN (10:54)
--- NOTE | 2017-06-29 12:47 | Medical Nutrition Therapy ---
Nutrition Anthropometrics Height (Inches): 64.00 Height (Calculated Centimeters: 162.406480 Weight (Pounds): 153 Weight (Calculated Kilograms): 69.400 BMI Calculated: 26.26 Otdd Nutrition Score: Probably Inadequate Todd Nutrition Risk Score: 18 Dietary Referral Nutrition Risk Factors: Recent Nutrition Impact Nutrition Risk Comment: n/v x a mo Physical Findings Physical Appearance: Overweight BMI 25-29 Skin Appearance Skin Appearance: Edema Edema Location Modifier: Edema Location: Type of Edema: Degree of Edema: Gastrointestinal Symptoms GI Symtoms: Nausea, Vomiting, Appetite Changes Tube Present: Bowel Sounds: Recent Bowel Pattern: Stool Characteristics: Nutritional Diagnosis Nutritional Risk Acuity 1: Acute/ES Renal Nutritional Risk Acuity 3: Nausea Past Medical History: Type 2 diabetes mellitus, Wrist fracture, hysterectomy, Recurrent UTI Nutritional Acuity: 1-High Nutrition Diagnosis: Inadequate Food Intake Nutrition Etiology: Physiological Causes Nutrition Problem/Etiology/Sym: Inadequate Oral Intake related to decreased ability to consume sufficient energy, e.g. decreased appetite prior to admit AEB reports of insufficient intake of energy from diet when compared to requirements. Energy Requirement: 1650 ([place]-St Jeor: Actual BW X 1.4) Protein Requirement: 56 (Actual BW Kg X .8) Fluid Requirement: 1650 Diet Type: Diabetic Nutrition Intervention: Cont diet as ordered Diet Comment To RSA: Offer nutritional supplements Nutrition Monitoring & Eval RD Patient Assessment Time: [address] Assessment Type: RD Re-Assessment Patient Nutrition Acuity: 1-High Follow Up Date: Jul 02, 2017 Nutritional Comment: 06/29) Pt admitted for Pyelonephritis. Labs: 06/28) Cre 1.2 (elevated but improving) Ca 8.3, Alb 2.4, 06/29) Glu 97. Diabetic diet po intake intake improving to 50% x 1 meal Pt admitted for Pyelonephritis. Overwt with BMI of 26.3. High WBC, Alb 2.4, Glu 189, High BUN/Creat. Lantus 15u q HS, Lispro SSI. Receiving Diabetes Diet with no reports of intake. Follow intake, labs, etc. 06/26) Pt. admitted for pyelonephritis. Pt has T2DM, acute renal failure, pulmonary nodule and recurrent UTI's. PMH: hypercholesterolemia Labs: 06/26) Na 136, Cre 1.2, GFR 43.9, Ca 8.3, WBGlu 115 06/24) Alb 2.4. Nursing reports nausea and vomitting, increased confusion. Po intake 25% x 6 meals however MD reports appetite is increasing. Wt remains stable. Continue to monitor labs, wt, po intake. Recommend protein powder in appropriate foods. ULISES FOURNIER Jun 29, 2017 11:16
[2017-06-29 14:46] VITALS: BP 144/75
[2017-06-29] MEDS ORDERED: LEVO750P2 IV (15:06)
--- NOTE | 2017-06-29 15:13 | Hospitalist Depart ---
Discharge Summary Reason for Hosp/Final Diag: (1) Pyelonephritis Status: Acute Hospital Course & Plan: She did present with urinary symptoms and a history of multiple courses of antibiotics (e.g. Cipro, amoxicillin, and Keflex) since late March for a UTI that doesn't appear to resolve. She also had an elevated WBC and her CT scan showed findings consistent with pyelonephritis with a possible developing parenchymal phlegmon. Her urine sample was contaminated, but did grow Klebsiella. She has been on empiric treatment with cefepime and vancomycin. The vancomycin and cefepime were changed to IV levofloxacin based on the sensitivities. She will discharge on IV Levofloxacin as per Dr. Stuart's instruction. She will follow up with him as an outpatient. (2) Type 2 diabetes mellitus Status: Chronic Hospital Course & Plan: She was on chronic treatment with Lantus and metformin. The metformin was on hold secondary to IV contrast, but has now been restarted. (3) Acute renal failure Hospital Course & Plan: She has had an elevated creatinine above her baseline, but it is stable. This will need continued follow up as her treatment progresses. (4) Pulmonary nodule Status: Acute Hospital Course & Plan: A CT scan showed a 9mm pulmonary nodule. She will require a repeat CT of the chest in 3 months. Departure Latest Vital Signs Vital Signs 06/23/17 06/29/17 18:42 14:46 Temp 98.2 Pulse 82 Resp 16 B/P (MAP) 144/75 (98) Pulse Ox 94 O2 Delivery Room Air O2 Flow Rate 3.0 Weight (Pounds): 153 Result Diagram: 06/28/17 0557 06/28/17 0557 Condition: Improved Discharge: Home, Self Care Discharge Instructions Home Meds Active Scripts Levofloxacin/D5w (LEVOFLOXACIN-D5W 750 MG/150 ML) 750 Mg/150 Ml Piggyback, 750 MG IV Q48H, #4 BAG Prov:AMIE ROMAN DO 06/29/17 Gly/Min Oil/Petrolat,Wht/Water (LUBRIDERM SENSITIVE SKIN LOT) 473 Ml Lotion, 473 ML TP BID, #1 TAB 0 Refills Prov:INGE HARRINGTON MD 04/21/17 Reported Medications Metformin Hcl (METFORMIN HCL) 1,000 Mg Tablet, 1 TAB PO BID, TAB 04/21/17 Insulin Glargine (Lantus) 100 U/Ml Soln, 15 U SC QDAY, 0 Refills 06/25/07 Discontinued Scripts Cephalexin 500 Mg Tab (KEFLEX 500 MG TAB) 500 Mg Tablet, 500 MG PO Q8H, #21 TAB Prov:ANGIE MOSES PA-C 05/28/17 Cyproheptadine Hcl (CYPROHEPTADINE HCL) 4 Mg Tablet, 4 MG PO Q8H for itching, # 30 TAB 0 Refills Prov:INGE HARRINGTON MD 04/21/17 Diet: Diabetic Activity: As Tolerated Copies to: MAC STUART MD; GIAN KELLER DO Venous Thromboembolism Antithrombotics Is Pt On Any Antithrombotics?: Yes AMIE ROMAN DO Jun 29, 2017 15:13
== END 2017-06-29 15:50 | disposition home or self-care (01) | DRG 690 ==
LOC: ER 13:52 → MED 18:19
PROVIDERS: ADMIT Internal Medicine; ATTEND Internal Medicine
DX: N10 Acute pyelonephritis (principal); B96.1 Klebsiella pneumoniae [K. pneumoniae] as the cause of diseases classified elsewhere; E86.0 Dehydration; R11.2 Nausea with vomiting, unspecified; R91.1 Solitary pulmonary nodule; E11.9 Type 2 diabetes mellitus without complications; N39.0 Urinary tract infection, site not specified; E78.5 Hyperlipidemia, unspecified; N17.9 Acute kidney failure, unspecified; M79.652 Pain in left thigh; Z72.0 Tobacco use; Z87.81 Personal history of (healed) traumatic fracture; Z87.440 Personal history of urinary (tract) infections; Z79.84 Long term (current) use of oral hypoglycemic drugs; Z88.2 Allergy status to sulfonamides; Z91.040 Latex allergy status; Z79.4 Long term (current) use of insulin; Z90.710 Acquired absence of both cervix and uterus
CPT/HCPCS: 36415; 36416; 71046; 72120; 73564; 74177; 80202; 81001; 82040; 82247; 82310; 82374; 82435; 82565; 82947; 82948; 83605; 84075; 84132; 84155; 84295; 84450; 84460; 84520; 85025; 87040; 87077; 87088; 87186; 96374; 99285; J0692; J0696; J1650; J1815; J1956; J2550; J3370; J7030; J7040; J7050; Q9967

== ENCOUNTER 2017-07-06 11:00 | Outpatient (RCR) | payer MEDICARE, BC ==
[2017-06-24 00:09] VITALS: BMI 26.3
[2017-06-30] MEDS: NS(*) 0.9% 100 ML BAG 100 ML IVPB PRN (12:20)
[2017-06-30] MEDS: LEVOFLOXACIN/D5W 750 MG/150 ML 150 ML IVPB SCH (12:20)
[2017-06-30 13:08] VITALS: BP 125/79
[2017-07-02] MEDS: NS(*) 0.9% 100 ML BAG 100 ML IVPB PRN (14:00)
[2017-07-02] MEDS: LEVOFLOXACIN/D5W 750 MG/150 ML 150 ML IVPB SCH (14:23)
[2017-07-02 14:31] VITALS: BP 128/74
[2017-07-04 14:12] VITALS: BP 146/87
[2017-07-04] MEDS: LEVOFLOXACIN/D5W 750 MG/150 ML 150 ML IVPB SCH (14:13)
[~2017-07-06 11:00] MED LIST changes: +DEXTROSE 5%(*) 100 ML BAG 100 ML IVPB PRN; +LEVO750P2 IV; +LIDOCAINE/SOD BICARB 8.4% SYR ID PRN
[2017-07-06] MEDS: LEVOFLOXACIN/D5W 750 MG/150 ML 150 ML IVPB SCH (11:20)
[2017-07-06] MEDS: NS(*) 0.9% 100 ML BAG 100 ML IVPB PRN (11:24)
[2017-07-06 11:25] VITALS: BP 118/75
[2017-07-06 13:02] VITALS: BP 143/87
== END 2017-09-07 10:54 | disposition home or self-care (01) ==
LOC: SPU 11:00
PROVIDERS: ATTEND Family Medicine
DX: N12 Tubulo-interstitial nephritis, not specified as acute or chronic (principal)
CPT/HCPCS: 96365; 96366; 96374; J1956; J7050

== ENCOUNTER 2017-10-07 13:00 | Inpatient (IN) | payer MEDICARE, BC, MEDICAID ==
[2017-06-24 00:09] VITALS: Ht 162.6 cm; Wt 70.3 kg
[~2017-10-07] VITALS: Ht 162.6 cm; Wt 70.3 kg
[~2017-10-07 13:00] MED LIST changes: -CEPH250C11 PO; -FAMO-67 PO; -GABA-488 PO; -IBUP800T37 PO
--- NOTE | 2017-10-07 13:03 | ER Report ---
History and Physical Time Seen By MD: 13:02 HPI/ROS CHIEF COMPLAINT: Generalized weakness HISTORY OF PRESENT ILLNESS: Patient is a 76-year-old female who presents to the emergency department for evaluation of generalized weakness. Patient lives by herself in it is highly functional. Patient's daughter was called to the house after a friend noticed that she was not answering her door. Patient was found sitting on the toilet she was unable to get up secondary to bilateral lower extremity weakness. Patient states she had no fall. She denies any chest pain or chest pressure. She has been having some watery loose stools over the past few days. She states that she ate at [employer] a few days ago and thinks she is she may have had "food poisoning". She denies any dysuria. She denies any blood in her stools. REVIEW OF SYSTEMS: Constitutional: No fever, no chills. Generalized weakness Eyes: No discharge. ENT: No sore throat. Cardiovascular: No chest pain, no palpitations. Respiratory: No cough, no shortness of breath. Gastrointestinal: No abdominal pain currently; reports of diarrhea earlier no nausea or vomiting Genitourinary: No hematuria. Musculoskeletal: No back pain. Skin: No rashes. Neurological: No headache. Allergies: Coded Allergies: Sulfa (Sulfonamide Antibiotics) (Verified Allergy, Intermediate, 10/12/17) latex (Verified Allergy, Mild, 10/12/17) Home Meds Active Scripts Gabapentin (NEURONTIN) 100 Mg Capsule, 300 MG PO DAILY, #90 CAPSULE 1 Refill Take one tablet po q am and 2 tablets po q pm. Prov:ABRIL STERLING MD 10/12/17 Famotidine (FAMOTIDINE) 20 Mg Tablet, 20 MG PO BID, #60 TAB Prov:ABRIL STERLING MD 10/12/17 Cephalexin Monohydrate (CEPHALEXIN) 250 Mg Cap, 250 MG PO TID, #21 CAP Prov:ABRIL STERLING MD 10/12/17 Discontinued Reported Medications Ibuprofen (IBUPROFEN) 800 Mg Tablet, 1 TAB PO PRN, TAB 10/07/17 Metformin Hcl (METFORMIN HCL) 1,000 Mg Tablet, 1 TAB PO BID, TAB 04/21/17 Insulin Glargine (Lantus) 100 U/Ml Soln, 15 U SC QDAY, 0 Refills 06/25/07 Discontinued Scripts Gly/Min Oil/Petrolat,Wht/Water (LUBRIDERM SENSITIVE SKIN LOT) 473 Ml Lotion, 473 ML TP BID, #1 TAB 0 Refills Prov:INGE HARRINGTON MD 04/21/17 Past Medical/Surgical History Past medical history for type II diabetes. Patient had an admission in June 2017 for pyelonephritis. Hx Smoking: Yes ("maybe a pack a week") Hx Substance Use Disorder: No Hx Alcohol Use: No (extremely rare) Constitutional Physical Exam General/Constitutional: Patient is awake, alert, nontoxic and in no acute respiratory distress. Head: Normocephalic and atraumatic. Eyes: Conjunctival clear, Pupils are equal and reactive to light. Extraocular muscles are intact and symmetrical. Sclera are clear and anicteric. Oropharyngeal: Mucous membranes are moist. There is no pharyngeal erythema or exudate. There are no palatal petechiae. Uvula is midline and symmetrical. Neck: Supple, no adenopathy. Cardiovascular: Heart is regular rate and rhythm without audible murmurs, rubs or gallops. Pulmonary: Lungs are clear to auscultation bilaterally. There are no wheezes, rales, or rhonchi. Chest rise is symmetrical Abdomen: Soft, nontender, no guarding or peritoneal signs. Extremities: No gross deformities, No peripheral cyanosis. Able to move all 4 extremities. Neuro: Alert and oriented X3, Skin: No rashes, skin is warm dry and well perfused. Medical Decision Making Data Points Result Diagram: 10/12/17 0552 10/12/17 0552 Laboratory Hematology Test 10/07/17 13:35 10/07/17 13:51 Peripheral Blood Smear Yes Y/N Troponin I 0.041 ng/ml Lipase 17 U/L (23-300) Urine Color Yellow Urine Clarity Cloudy Urine pH 5.0 pH (4.8-9.5) Urine Specific [place] 1.013 Urine Protein 100 mg/dL (NEGATIVE) Urine Glucose (UA) Negative mg/dL (NEGATIVE) Urine Ketones Negative mg/dL (NEGATIVE) Urine Blood Large (NEGATIVE) Urine Nitrite Negative (NEGATIVE) Urine Bilirubin Negative (NEGATIVE) Urine Urobilinogen Negative mg/dL (0.2-1.9) Urine Leukocyte Esterase Large (NEGATIVE) Urine RBC 152 /HPF (0-2/HPF) Urine WBC 502 /HPF (0-5/HPF) Urine WBC Clumps Many /HPF Urine Squamous Epithelial Cells None /LPF (NONE-FEW) Urine Bacteria Moderate /HPF (NONE-FEW) Urine Mucus None /HPF (NONE-FEW) Chemistry Test 10/07/17 13:35 10/07/17 13:51 Peripheral Blood Smear Yes Y/N Troponin I 0.041 ng/ml Lipase 17 U/L (23-300) Urine Color Yellow Urine Clarity Cloudy Urine pH 5.0 pH (4.8-9.5) Urine Specific [place] 1.013 Urine Protein 100 mg/dL (NEGATIVE) Urine Glucose (UA) Negative mg/dL (NEGATIVE) Urine Ketones Negative mg/dL (NEGATIVE) Urine Blood Large (NEGATIVE) Urine Nitrite Negative (NEGATIVE) Urine Bilirubin Negative (NEGATIVE) Urine Urobilinogen Negative mg/dL (0.2-1.9) Urine Leukocyte Esterase Large (NEGATIVE) Urine RBC 152 /HPF (0-2/HPF) Urine WBC 502 /HPF (0-5/HPF) Urine WBC Clumps Many /HPF Urine Squamous Epithelial Cells None /LPF (NONE-FEW) Urine Bacteria Moderate /HPF (NONE-FEW) Urine Mucus None /HPF (NONE-FEW) Urinalysis Test 10/07/17 13:51 Urine Color Yellow Urine Clarity Cloudy Urine pH 5.0 pH (4.8-9.5) Urine Specific [place] 1.013 Urine Protein 100 mg/dL (NEGATIVE) Urine Glucose (UA) Negative mg/dL (NEGATIVE) Urine Ketones Negative mg/dL (NEGATIVE) Urine Blood Large (NEGATIVE) Urine Nitrite Negative (NEGATIVE) Urine Bilirubin Negative (NEGATIVE) Urine Urobilinogen Negative mg/dL (0.2-1.9) Urine Leukocyte Esterase Large (NEGATIVE) Urine RBC 152 /HPF (0-2/HPF) Urine WBC 502 /HPF (0-5/HPF) Urine WBC Clumps Many /HPF Urine Squamous Epithelial Cells None /LPF (NONE-FEW) Urine Bacteria Moderate /HPF (NONE-FEW) Urine Mucus None /HPF (NONE-FEW) Microbiology Microbiology Date/Time Source Procedure Growth Status 10/07/17 13:51 Cath Urine Urine Culture - Final Klebsiella Pneumoniae Complete EKG/Imaging EKG Interpretation EKG shows sinus tachycardia with a ventricular rate of [address] segment or T-wave abnormalities noted. No prior EKG to compare with Monitor Interpretation: Sinus Tachycardia ED Course/Re-evaluation Clinical Indication for ER IV: Hydration, IV Access ED Course Patient with elevated white count and concerns for urinary tract infection. Also elevation in creatinine function last creatinine in June was1.2; today it is 4.5. We will give IV Rocephin gentle fluid hydration. Patient and family were made aware of admission. No questions or concerns at this time Decision to Disposition Date: October 07, 2017 Decision to Disposition Time: 15:28 Depart Departure Latest Vital Signs Impression: Primary Impression: Acute renal failure Additional Impression: Recurrent UTI Condition: Improved Disposition: Admitted from ER (to [facility]) Referrals: GIAN KELLER DO (PCP) New Scripts Gabapentin (NEURONTIN) 100 Mg Capsule 300 MG PO DAILY, #90 CAPSULE 1 Refill Take one tablet po q am and 2 tablets po q pm. Prov: ABRIL STERLING MD 10/12/17 Famotidine (FAMOTIDINE) 20 Mg Tablet 20 MG PO BID, #60 TAB Prov: ABRIL STERLING MD 10/12/17 Cephalexin Monohydrate (CEPHALEXIN) 250 Mg Cap 250 MG PO TID, #21 CAP Prov: ABRIL STERLING MD 10/12/17 Problem Qualifiers Primary Impression: Acute renal failure Acute renal failure type: unspecified Qualified Codes: N17.9 - Acute kidney failure, unspecified INGE HARRINGTON MD October 07, 2017 13:03
[2017-10-07] MEDS ORDERED: NS(*) 0.9% 500 ML BAG 500 ML IV ONE (13:08)
[2017-10-07] MEDS ORDERED: IBUP800T37 PO (13:11)
--- NOTE | 2017-10-07 13:33 | EKG ---
FACILITY: [facility] PATIENT NAME: NIKKO BARTLETT : [id number] MR: [id number] V: [id number] EXAM DATE: ORDERING PHYSICIAN: INGE HARRINGTON TECHNOLOGIST: CHRISTINA Nevarez Reason : WEAKNESS Blood Pressure : / mmHG Vent. Rate : 114 BPM Atrial Rate : 114 BPM P-R Int : 140 ms QRS Dur : 074 ms QT Int : 342 ms P-R-T Axes : 015 002 035 degrees QTc Int : 471 ms Sinus tachycardia Possible left atrial enlargement Poor R wave progression anterior leads Abnormal ECG No previous ECGs available Confirmed by CONNOR STERLING ([id number]) on 10/07/2017 6:55:05 PM Referred By: JUANY Confirmed By:CONNOR STERLING
[2017-10-07 13:48] LABS: PLATELET COUNT, AUTOMATED 319 K/uL (150-450)
[2017-10-07] MEDS ORDERED: IOPAMIDOL 76% 75 ML INFUS BTL 0 ML ONE (13:54)
[2017-10-07] MEDS ORDERED: cefTRIAXone 1 GM VIAL IVP ONE (15:10)
--- NOTE | 2017-10-07 15:16 | RADIOLOGY IMAGING REPORT ---
[place] [facility] [place] Luh Schneider : 1940 MR: [id number] V: [id number] EXAM DATE: ORDERING PHYSICIAN: INGE HARRINGTON TECHNOLOGIST: Location: [facility] - [place] Patient: Luh Schneider : 1940 Visit/Account:[id number] Date of Sevice: 10/07/2017 ABDOMEN/PELVIS W/O CONTRAST COMPARISON: June 23, 2017 CT abdomen and pelvis with IV contrast. HISTORY: pain. TECHNIQUE: Axial CT abdomen and pelvis without intravenous contrast. Coronal and sagittal reformats . One of the following dose optimization techniques was utilized in the performance of this exam: auto mated exposure control; adjustment of the mA and/or kV according to patient size; or use of iterative reconstruction technique. Specific details can be referenced in the facility's radiology CT exam op erational policy. CONTRAST: No intravenous contrast. FINDINGS: Lack of IV contrast limits assessment of the liver and other solid organs for subtle pathology. Withi n these limitations, the following observations are made: LUNG BASES: 8 x 9 mm left lower lobe nodule is stable, series 3 image 66. No new lung base nodules. No acute-appearing lung opacities. LIVER: Unremarkable. BILIARY: Subtle cholelithiasis otherwise unremarkable CT appearance of the ga llbladder. No intra-or extrahepatic bile duct dilatation. SPLEEN: Unremarkable. Normal size. Homogeneous density. PANCREAS: Unremarkable. Limited assessment by noncontrast CT. No focal enlargement to suggest the p resence of a mass. No evidence of acute pancreatitis. ADRENALS: Unremarkable. KIDNEYS: Unremarkable. Normal noncontrast CT appearance without calcified stones, asymmetric perine phric stranding, hydronephrosis or contour deforming renal mass. GI/MESENTERY: Mild sigmoid diverticulosis. There is no visible mass, obstruction, or bowel wall thic kening. There is no localized inflammatory fat stranding, free air or free fluid. VASCULAR: Mild aortoiliac calcifications. LYMPH NODES: Mildly enlarged left periaortic with short axis diameter of 1.3 cm, level of the left k idney, axial series 2 image 52. This is smaller than the recent comparison, where it was 1.6 cm. This is probably a reactive node. No other enlarged lymph nodes. BLADDER: Unremarkable. No visible focal wall thickening, appreciable lesion, or calculus. PELVIC ORGANS: Prior hysterectomy. Ovaries are not seen. BONES: Mild hip osteoarthritis bilaterally.No acute-appearing fracture or suspicious osseous lesion. OTHER: Negative. IMPRESSION: 1. No findings to account for abdominal pain. 2. Cholelithiasis without bile duct dilatation. 3. Mild sigmoid diverticulosis but no evidence of diverticulitis. 4. Mildly enlarged left periaortic lymph node, smaller than June 2017, probably resolving reacti ve node. 5. Prior surgery. 6. 8 x 9 mm left lower lobe nodule is stable from June 23, 2017. A nonemergent complete chest CT is recommended to assess for additional findings in the chest, to help determine its significance an d to provide appropriate follow-up recommendations. Report Dictated By: Kraig Gurrola at 10/07/2017 2:57 PM Report E-Signed By: Kraig Gurrola at 10/07/2017 3:11 PM [id number]
[2017-10-07 16:29] VITALS: BP 149/83
[2017-10-07] MEDS ORDERED: FLUSH 10 ML SYR IVP PRN (16:45)
[2017-10-07] MEDS ORDERED: PROMETHAZINE 25 MG/ML 1 ML AMP IVP PRN (16:50)
--- NOTE | 2017-10-07 17:05 | History & Physical ---
History of Present Illness Chief Complaint "Legs gave out" History of Present Illness 76yo female with PMHx significant for recurrent UTIs, DJDz, and type 2 DM. She reports onset of nausea and vomiting about 4 days ago after eating out at [employer]. She had one day of diarrhea as well. No black or bloody emesis or stools. She has felt feverish and chilled episodically. She has had poor appetite and only able to keep a small amount of fluids down over the past few days. She denies any dysuria, frequency, hematuria, back/flank pain. She denies any cough or sputum production. She was evaluated in the ER and found to have evidence of dehydration, UTI, and acute renal failure. She had CT scan of her abdomen, which was rather unremarkable. She was recommended for admission. History Problems: (1) Type 2 diabetes mellitus Status: Chronic (2) History of hysterectomy Status: Resolved (3) Recurrent UTI Status: Chronic Home Meds Reported Medications Ibuprofen (IBUPROFEN) 800 Mg Tablet, 1 TAB PO PRN, TAB 10/07/17 Metformin Hcl (METFORMIN HCL) 1,000 Mg Tablet, 1 TAB PO BID, TAB 04/21/17 Discontinued Reported Medications Insulin Glargine (Lantus) 100 U/Ml Soln, 15 U SC QDAY, 0 Refills 06/25/07 Discontinued Scripts Gly/Min Oil/Petrolat,Wht/Water (LUBRIDERM SENSITIVE SKIN LOT) 473 Ml Lotion, 473 ML TP BID, #1 TAB 0 Refills Prov:INGE HARRINGTON MD 04/21/17 Allergies: Coded Allergies: Sulfa (Sulfonamide Antibiotics) (Verified Allergy, Intermediate, 10/07/17) latex (Verified Allergy, Mild, 10/07/17) Patient History: Patient reports no known family medical history. Hx Smoking: Yes ("maybe a pack a week") Caffeine Intake: Coffee, Tea Caffeine/Cups Per Day: 2 Hx Alcohol Use: No (extremely rare) Hx Substance Use Disorder: No Review of Systems Constitutional: Fever, Weight Loss, Chills Neurological: Weakness, No Syncope Eyes: No Vision Change, No Loss of Vision Cardiovascular: No Chest Pain, No Palpitations Respiratory: No Shortness of Breath, No Cough Gastrointestinal: Nausea, Vomiting, Diarrhea, No Hematemesis, No Hematochezia, No Melena, No Abdominal Pain Genitourinary: No Dysuria, No Hematuria, No Urinary Incontinence Psychiatric: No Depression, No Anxiety Exam Vital Signs Vital Signs Date Time Temp Pulse Resp B/P (MAP) Pulse Ox O2 Delivery O2 Flow Rate FiO2 10/07/17 15:45 154/77 (102) 10/07/17 15:35 98 97 10/07/17 13:03 98.2 22 Room Air General Appearance: Alert, Awake Neuro: No Gross deficits Eyes: PERRLA ENT: Oropharynx Clear, Other (mucosa dry/tacky) Neck: No Masses Cardiovascular: Regular Rate and Rhythm, No Edema, No JVD Respiratory: Clear to Auscultation Chest: No Tenderness GI: Abd Soft and Non-Tender (BS present) : No CVA Tenderness Lymph: No Adenopathy Extremities: Warm, Perfused Integumentary: Skin Intact without Lesion / Mass (no rashes) Psych: Alert & Oriented X3 Medical Decision Making Data Points Result Diagram: 10/07/17 1335 10/07/17 1335 Item Value Date Time Troponin I 0.041 ng/ml 10/07/17 1335 Total Creatine Kinase 2720 U/L H 10/07/17 1335 Lipase 17 U/L L 10/07/17 1335 Albumin 3.6 g/dl 10/07/17 1335 Total Protein 7.6 gm/dl 10/07/17 1335 Alkaline Phosphatase 110 U/L 10/07/17 1335 Alanine Aminotransferase (ALT/SGPT) 30 U/L 10/07/17 1335 Total Bilirubin 0.7 mg/dl 10/07/17 1335 Aspartate Amino Transf (AST/SGOT) 75 U/L H 10/07/17 1335 Calcium Level 9.9 mg/dl 10/07/17 1335 Urine Color Yellow 10/07/17 1351 Urine Clarity Cloudy 10/07/17 1351 Urine pH 5.0 pH 10/07/17 1351 Urine Specific [place] 1.013 10/07/17 1351 Urine Protein 100 mg/dL 10/07/17 1351 Urine Glucose (UA) Negative mg/dL 10/07/17 1351 Urine Ketones Negative mg/dL 10/07/17 1351 Urine Blood Large 10/07/17 1351 Urine Nitrite Negative 10/07/17 1351 Urine Bilirubin Negative 10/07/17 1351 Urine Urobilinogen Negative mg/dL 10/07/17 1351 Urine Leukocyte Esterase Large H 10/07/17 1351 Urine RBC 152 /HPF 10/07/17 1351 Urine WBC 502 /HPF 10/07/17 1351 Urine WBC Clumps Many /HPF 10/07/17 1351 Urine Squamous Epithelial Cells None /LPF 10/07/17 1351 Urine Bacteria Moderate /HPF H 10/07/17 1351 Urine Mucus None /HPF 10/07/17 1351 EKG / Imaging Imaging PATIENT NAME: Luh Schneider : 1940 MR: [id number] V: [id number] EXAM DATE: ORDERING PHYSICIAN: INGE HARRINGTON TECHNOLOGIST: Location: [facility] - [place], [place] Patient: Luh Schneider : 1940 Visit/Account:[id number] Date of Sevice: 10/07/2017 ABDOMEN/PELVIS W/O CONTRAST COMPARISON: June 23, 2017 CT abdomen and pelvis with IV contrast. HISTORY: pain. TECHNIQUE: Axial CT abdomen and pelvis without intravenous contrast. Coronal and sagittal reformats. One of the following dose optimization techniques was utilized in the performance of this exam: automated exposure control; adjustment of the mA and/ or kV according to patient size; or use of iterative reconstruction technique. Specific details can be referenced in the facility's radiology CT exam operational policy. CONTRAST: No intravenous contrast. FINDINGS: Lack of IV contrast limits assessment of the liver and other solid organs for subtle pathology. Within these limitations, the following observations are made: LUNG BASES: 8 x 9 mm left lower lobe nodule is stable, series 3 image 66. No new lung base nodules. No acute-appearing lung opacities. LIVER: Unremarkable. BILIARY: Subtle cholelithiasis otherwise unremarkable CT appearance of the gallbladder. No intra-or extrahepatic bile duct dilatation. SPLEEN: Unremarkable. Normal size. Homogeneous density. PANCREAS: Unremarkable. Limited assessment by noncontrast CT. No focal enlargement to suggest the presence of a mass. No evidence of acute pancreatitis. ADRENALS: Unremarkable. KIDNEYS: Unremarkable. Normal noncontrast CT appearance without calcified stones, asymmetric perinephric stranding, hydronephrosis or contour deforming renal mass. GI/MESENTERY: Mild sigmoid diverticulosis. There is no visible mass, obstruction, or bowel wall thickening. There is no localized inflammatory fat stranding, free air or free fluid. VASCULAR: Mild aortoiliac calcifications. LYMPH NODES: Mildly enlarged left periaortic with short axis diameter of 1.3 cm , level of the left kidney, axial series 2 image 52. This is smaller than the recent comparison, where it was 1.6 cm. This is probably a reactive node. No other enlarged lymph nodes. BLADDER: Unremarkable. No visible focal wall thickening, appreciable lesion, or calculus. PELVIC ORGANS: Prior hysterectomy. Ovaries are not seen. BONES: Mild hip osteoarthritis bilaterally.No acute-appearing fracture or suspicious osseous lesion. OTHER: Negative. IMPRESSION: 1. No findings to account for abdominal pain. 2. Cholelithiasis without bile duct dilatation. 3. Mild sigmoid diverticulosis but no evidence of diverticulitis. 4. Mildly enlarged left periaortic lymph node, smaller than June 2017, probably resolving reactive node. 5. Prior surgery. 6. 8 x 9 mm left lower lobe nodule is stable from June 23, 2017. A nonemergent complete chest CT is recommended to assess for additional findings in the chest, to help determine its significance and to provide appropriate follow-up recommendations. Report Dictated By: Kraig Gurrola at 10/07/2017 2:57 PM Report E-Signed By: Kraig Gurrola at 10/07/2017 3:11 PM [id number] Assessment and Plan Problems: (1) Recurrent UTI Status: Chronic Assessment & Plan: It appears she has another recurrent UTI. Based on previous culture results, will place on IV Rocephin. Cultures of urine and blood have been obtained. Will modify antibiotics based on results. She will need to follow up with urology as well. (2) Type 2 diabetes mellitus Status: Chronic Assessment & Plan: Will start her on ADA clear liquid diet, watch glucoses and use SSI as needed. She has previously been on metformin, but reports poor appetite/nausea with it. (3) Acute renal failure Status: Acute Assessment & Plan: Most likely due to dehydration and use of ibuprofen for her DJDz. Will give generous IV fluids, stop NSAID, watch UOP and labs. (4) Dehydration Status: Acute Assessment & Plan: Due to poor intake related to N/V/diarrhea. Will control symptoms, check stool studies (treat as needed), and give generous IV fluids. (5) Pulmonary nodule Status: Chronic Assessment & Plan: She will need CT scan of her chest after this acute problem /renal failure has resolved. Venous Thromboembolism Antithrombotics Is Pt On Any Antithrombotics?: No Prophylaxis Tx Contraindicated Pharmacological Contraindicati: Renal Impairment Exam Sepsis Risk: No Definite Risk Problem Qualifiers (1) Acute renal failure: Acute renal failure type: unspecified Qualified Codes: N17.9 - Acute kidney failure, unspecified CONNOR STERLING MD October 07, 2017 17:05
[2017-10-07] MEDS: NS(*) 0.9% 1000 ML BAG 1,000 ML IV PRN (17:49)
[2017-10-07 18:54] VITALS: BP 159/82
[2017-10-07] MEDS: INSULIN HUM LISPRO 100 UN/ML 3 ML VIAL SUBQ PRN (21:34)
[2017-10-08] VITALS (8 sets, daily range): BP systolic 131–162; BP diastolic 65–84
[2017-10-08] MEDS: NS(*) 0.9% 1000 ML BAG 1,000 ML IV PRN ×2 (02:50→10:53)
[2017-10-08] MEDS: ACETAMINOPHEN 325 MG TAB PO PRN ×2 (05:40→21:40)
[2017-10-08 06:09] LABS: PLATELET COUNT, AUTOMATED 279 K/uL (150-450)
[2017-10-08] MEDS: INSULIN HUM LISPRO 100 UN/ML 3 ML VIAL SUBQ PRN ×3 (07:47→16:55)
--- NOTE | 2017-10-08 10:44 | Medical Nutrition Therapy ---
Nutrition Anthropometrics Height (Inches): 64 Weight (Pounds): 142 Weight (Calculated Kilograms): 64.410 BMI: 22 Todd Nutrition Score: Adequate Todd Nutrition Risk Score: 17 Dietary Referral Nutrition Risk Factors: Recent Nutrition Impact Nutrition Risk Comment: n/v x a mo Nutritional Diagnosis Nutritional Risk Acuity 1: Acute/ES Renal Nutritional Risk Acuity 2: V/D > 3 Days Past Medical History: Type 2 diabetes mellitus, Wrist fracture, hysterectomy, Recurrent UTI Nutritional Acuity: 1-High Nutrition Diagnosis: Decreased Nutrient Needs Nutrition Etiology: Physiological Causes Nutrition Problem/Etiology/Sym: Decreased protein r/t dx ARF AEB creatinine 4.2, BUN 54. Energy Requirement: 1470 (M- StJ) Protein Requirement: 51 (.8gm/kg) Fluid Requirement: 1920 Diet Type: Clear Liquids Nutrition Intervention: Incr diet as tolerated Nutrition Monitoring & Eval Nutrition Goals: Eat 75-100% Meal RD Patient Assessment Time: [address] Assessment Type: RD Assessment Patient Nutrition Acuity: 1-High Follow Up Date: October 11, 2017 Nutritional Comment: 10/08 Pt admitted with 4 day N/V, dehydration with ARF. Pt has dx T2DM and is recieving insulin. Pt on clear liquid diet. BUN 54, creatinine 4.2, alb 2,7, BG elevated up to 239, Hgb 7.9, Hct 21.8. Will cont to monitor. REJI KING October 08, 2017 10:44
--- NOTE | 2017-10-08 11:12 | Hospitalist Progress Note ---
Subjective Progress Notes Subjective The patient denies pain. She is weak and requires a 2 person assist. Physical Exam Vital Signs Date Time Temp Pulse Resp B/P (MAP) Pulse Ox O2 Delivery O2 Flow Rate FiO2 10/08/17 07:30 98.2 80 16 131/65 (87) 95 Room Air Intake and Output 10/09/17 07:00 Intake Total 953 ml Balance 953 ml Intake Oral 290 ml IV Total 663 ml General Appearance: Alert, Awake, No Acute Distress, Afebrile Neuro: No Gross deficits Eyes: PERRLA Cardiovascular: Regular Rate and Rhythm (With soft MAEVE.) Respiratory: No Respiratory Distress, Clear to Auscultation GI: Soft and Non-Tender Extremities: Warm, Perfused Integumentary: Skin Intact without Lesion / Mass Psych: Appropriate Mood & Affect Result Diagram: 10/08/17 0710 10/08/17 0525 Monitor Interpretation: Sinus Tachycardia Assessment and Plan Problems: (1) Recurrent UTI Status: Chronic Assessment & Plan: It appears she has another recurrent UTI. Based on previous culture results, will place on IV Rocephin. Cultures of urine and blood have been obtained. Will modify antibiotics based on results. She will need to follow up with urology as well. (2) Type 2 diabetes mellitus Status: Chronic Assessment & Plan: Will start her on ADA diet, watch glucoses and use SSI as needed. She has previously been on metformin, but reports poor appetite/nausea with it. (3) Acute renal failure Status: Acute Assessment & Plan: Most likely due to dehydration and use of ibuprofen for her DJDz. Will continue generous IV fluids, stop NSAID, watch UOP and labs. Her creatinine is slightly improved to 4.2 today. (4) Dehydration Status: Acute Assessment & Plan: Due to poor intake related to N/V/diarrhea. Symptoms improved today. Stool studies pending (treat as needed). Continue IV fluids until oral intake (5) Pulmonary nodule Status: Chronic Assessment & Plan: She will need CT scan of her chest after this acute problem /renal failure has resolved. Time Spent on Plan of Care: < 30 min Exam Sepsis Risk: No Definite Risk Problem Qualifiers (1) Acute renal failure: Acute renal failure type: unspecified Qualified Codes: N17.9 - Acute kidney failure, unspecified ABRIL STERLING MD October 08, 2017 11:12
[2017-10-08] MEDS: cefTRIAXone(*) 1 GM VIAL 1 GM in NS(*) 0.9% 100 ML ADDVANT BAG 100 ML IVPB SCH (14:15)
[2017-10-08] MEDS ORDERED: NS(*) 0.9% 500 ML BAG 500 ML IV ONE (14:20)
[2017-10-08] MEDS: FAMOTIDINE 20 MG TAB PO SCH ×2 (16:02→21:37)
[2017-10-08] MEDS ORDERED: GABAPENTIN 100 MG CAP PO SCH (21:00)
[2017-10-09] MEDS: NS(*) 0.9% 1000 ML BAG 1,000 ML IV PRN ×2 (01:15→13:00)
[2017-10-09 03:40] VITALS: BP 164/85
[2017-10-09 05:35] VITALS: BP 161/83
[2017-10-09 05:56] LABS: PLATELET COUNT, AUTOMATED 210 K/uL (150-450)
[2017-10-09 07:52] VITALS: BP 166/86
--- NOTE | 2017-10-09 09:15 | Antimicrobial Stewardship Note ---
Antimicrobial Stewardship Note Note Antimicrobial Stewardship Note 76 yo F admitted with weakness, found to have a UTI with deteriorating renal function. UA consistent with infection (no squamous Epi's, + blood, + leukocyte esterase, 152 RBCs, 502 WBCs, + bacteria). Urine culture growing GNR >100,000cfu, has been afebrile, but with elevated WBCs 22-16.6, 88% neutrophils. On Ceftriaxone 1g IV q24h. Continue present management, watch cultures and de-escalate as appropriate. Eva Lomeli, PharmD, BCOP EVA LOMELI October 09, 2017 09:15
[2017-10-09] MEDS ORDERED: POTASSIUM CHL 10 MEQ TABCR PO ONE (09:30)
[2017-10-09] MEDS: FAMOTIDINE 20 MG TAB PO SCH ×2 (09:31→21:16)
--- NOTE | 2017-10-09 10:40 | Hospitalist Progress Note ---
Subjective Progress Notes Subjective She reports that she slept well and has an appetite this morning. No concerns from staff. Physical Exam Vital Signs Date Time Temp Pulse Resp B/P (MAP) Pulse Ox O2 Delivery O2 Flow Rate FiO2 10/09/17 07:52 98.1 92 20 166/86 (112) 93 Room Air Intake and Output 10/10/17 07:00 Intake Total 0 ml Balance 0 ml Intake Oral 0 ml General Appearance: Alert, Awake, No Acute Distress GI: Soft and Non-Tender Result Diagram: 10/09/17 0534 10/09/17 0534 Monitor Interpretation: Sinus Tachycardia Assessment and Plan Problems: (1) Recurrent UTI Status: Chronic Assessment & Plan: She presented with generalized weakness. Urine culture is growing Klebsiella pneumonia that is sensitive to IV Rocephin. Blood cultures have no growth. WBC trending down. Afebrile. She will need to follow up with urology as well. (2) Anemia Status: Acute Assessment & Plan: Etiology is unclear. She received 2 units of PRBC on 10/08. Iron is very low, but TIBC is low and ferritin is high. Occult blood test in stool is pending. B12/Folate wnl. Will follow. She likely will need a colonoscopy/EGD at some point. (3) Type 2 diabetes mellitus Status: Chronic Assessment & Plan: Will start her on ADA diet, watch glucoses and use SSI as needed. She has previously been on metformin, but reports poor appetite/nausea with it. HgA1c is 5.7, so likely doesn't need medication as an outpatient. (4) Acute renal failure Status: Acute Assessment & Plan: Most likely due to dehydration and use of ibuprofen for her DJDz. Will decrease IV fluids, stop NSAID, watch UOP and labs. Her creatinine is slightly improved to 3.5 today. It appears that since June, she has had acute worsening of the creatinine. She has had persistent microscopic hematuria and pyuria on UA. Previous CT haven't shown kidney parenchymal problems or evidence of obstruction. Will get a Renal US today. She likely needs follow up with a [employer]. (5) Dehydration Status: Acute Assessment & Plan: Due to poor intake related to N/V/diarrhea. Symptoms improved. Continue IV fluids until oral intake (6) Pulmonary nodule Status: Chronic Assessment & Plan: She will need CT scan of her chest after this acute problem /renal failure has resolved. Exam Sepsis Risk: No Definite Risk Problem Qualifiers (1) Acute renal failure: Acute renal failure type: unspecified Qualified Codes: N17.9 - Acute kidney failure, unspecified KEHINDE CALHOUN MD October 09, 2017 10:40
[2017-10-09] MEDS ORDERED: GABAPENTIN 100 MG CAP PO ONE (13:05)
[2017-10-09] MEDS: ACETAMINOPHEN 325 MG TAB PO PRN ×2 (13:14→21:17)
[2017-10-09 14:22] VITALS: BP 164/85
[2017-10-09] MEDS: cefTRIAXone(*) 1 GM VIAL 1 GM in NS(*) 0.9% 100 ML ADDVANT BAG 100 ML IVPB SCH (14:39)
--- NOTE | 2017-10-09 15:54 | RADIOLOGY IMAGING REPORT ---
FACILITY: [facility] PATIENT NAME: Luh Schneider : 1940 MR: [id number] V: [id number] EXAM DATE: [id number] ORDERING PHYSICIAN: KEHINDE CALHOUN TECHNOLOGIST: [place] [facility] [place]: Luh Schneider : 1940 Visit/Account:[id number] Date of Sevice: 10/09/2017 KIDNEYS EXAMINATION: Renal ultrasound. History: Chronic kidney disease COMPARISON STUDIES: CT abdomen and pelvis October 07, 2017 FINDINGS: Kidneys: Right kidney- 12.2 x 4.6 x 4.7 cm Left kidney- 9.1 x 5.7 x 4.3 cm Uniform and symmetric blood flow in each kidney by Doppler ultrasound. Hydronephrosis: none Resistive index of the right 0.68 and on the left 0.76 Bladder: Prevoid volume 128 mL. Post void residual 30 mL. Bilateral ureteral jets are identified. Abdominal aorta and IVC: Not well seen IMPRESSION: Unremarkable sonographic appearance to the kidneys Report Dictated By: Guadalupe Moon MD at 10/09/2017 3:48 PM Report E-Signed By: Guadalupe Moon MD at 10/09/2017 3:50 PM [id number]
[2017-10-09 18:39] VITALS: BP 158/79
[2017-10-09] MEDS: GABAPENTIN 100 MG CAP PO SCH (21:16)
[2017-10-09] MEDS: INSULIN HUM LISPRO 100 UN/ML 3 ML VIAL SUBQ PRN (21:17)
[2017-10-10 05:56] VITALS: BP 162/93
[2017-10-10] MEDS: CEPHALEXIN MONO 250 MG CAP PO SCH ×3 (08:53→21:09)
[2017-10-10] MEDS: FAMOTIDINE 20 MG TAB PO SCH ×2 (08:53→21:09)
[2017-10-10] MEDS: GABAPENTIN 100 MG CAP PO SCH ×2 (08:53→21:09)
--- NOTE | 2017-10-10 09:09 | Hospitalist Progress Note ---
Subjective Progress Notes Subjective This patient was admitted for a urinary infection. She did not have any acute events overnight. Patient Complains of: Cardiovascular: No: Chest Pain Respiratory: No: Shortness of Breath Physical Exam Vital Signs Date Time Temp Pulse Resp B/P (MAP) Pulse Ox O2 Delivery O2 Flow Rate FiO2 10/10/17 05:56 98.2 77 15 162/93 (116) 96 Room Air Cardiovascular: Regular Rate and Rhythm Respiratory: Clear to Auscultation Result Diagram: 10/09/17 0534 10/09/17 0534 Item Value Date Time Urine Culture - Final Complete 10/07/17 1351 Cath Urine Klebsiella Pneumoniae Monitor Interpretation: Sinus Tachycardia Assessment and Plan Problems: (1) Recurrent UTI Status: Chronic Assessment & Plan: She did have an elevated WBC and her urine was consistent with infection. Her culture has grown Klebsiella. She was on empiric treatment with ceftriaxone, but we have now converted her to oral Keflex. (2) Anemia Status: Acute Assessment & Plan: She did have a drop in er Hgb and required 2 units of red cells on 10/08. Her Hgb is currently stable. Her stool was negative for blood. (3) Type 2 diabetes mellitus Status: Chronic Assessment & Plan: She is currently on sliding scale level #1. (4) Acute renal failure Status: Acute Assessment & Plan: She has had an increasing creatinine since June of this year. Her creatinine has improved some with fluids and transfusion, but she will likely need to follow up with nephrology. A renal ultrasound did not show any abnormalities. (5) Dehydration Status: Acute Assessment & Plan: Resolved with Iv fluids. (6) Pulmonary nodule Status: Chronic Assessment & Plan: She will need CT scan of her chest after this acute problem /renal failure has resolved. Exam Sepsis Risk: No Definite Risk Problem Qualifiers (1) Acute renal failure: Acute renal failure type: unspecified Qualified Codes: N17.9 - Acute kidney failure, unspecified AMIE ROMAN DO October 10, 2017 09:09
[2017-10-10] MEDS: INSULIN HUM LISPRO 100 UN/ML 3 ML VIAL SUBQ PRN ×2 (11:39→16:45)
[2017-10-10 11:40] VITALS: BP 159/97
[2017-10-10] MEDS: NS(*) 0.9% 1000 ML BAG 1,000 ML IV PRN (14:23)
[2017-10-10 18:31] VITALS: BP 175/92
[2017-10-10] MEDS: ACETAMINOPHEN 325 MG TAB PO PRN (21:27)
[2017-10-10 23:40] LABS: PLATELET COUNT, AUTOMATED 188 K/uL (150-450)
[2017-10-11 03:48] VITALS: BP 158/83
[2017-10-11 05:58] LABS: PLATELET COUNT, AUTOMATED 193 K/uL (150-450)
[2017-10-11 06:40] VITALS: BP 171/87
[2017-10-11] MEDS: GABAPENTIN 100 MG CAP PO SCH ×2 (08:53→20:23)
[2017-10-11] MEDS: FAMOTIDINE 20 MG TAB PO SCH ×2 (08:53→20:23)
[2017-10-11] MEDS: CEPHALEXIN MONO 250 MG CAP PO SCH ×3 (08:53→20:23)
--- NOTE | 2017-10-11 09:19 | Hospitalist Progress Note ---
Subjective Progress Notes Subjective Overall feeling better. Leg pain much better. Physical Exam Vital Signs Date Time Temp Pulse Resp B/P (MAP) Pulse Ox O2 Delivery O2 Flow Rate FiO2 10/11/17 07:15 95 Room Air 10/11/17 06:40 97.6 73 171/87 (115) 10/11/17 03:48 20 General Appearance: Alert, Awake, No Acute Distress Respiratory: Clear to Auscultation GI: Soft and Non-Tender : No CVA Tenderness Extremities: No Edema Result Diagram: 10/11/1752310/11/17523 Monitor Interpretation: Sinus Tachycardia Assessment and Plan Problems: (1) Recurrent UTI Status: Chronic Assessment & Plan: She presented with generalized weakness. Urine culture is growing Klebsiella pneumonia. Blood cultures have no growth. WBC trending down , but a bit up today. Afebrile. She will need to follow up with urology as well. She was on empiric treatment with ceftriaxone, but we have now converted her to oral Keflex. She is working with therapy for her weakness. Likely, can go home tomorrow. (2) Anemia Status: Acute Assessment & Plan: Etiology is unclear. She received 2 units of PRBC on . Iron is very low, but TIBC is low and ferritin is high. B12/Folate wnl. Her stool was negative for blood. She likely will need a colonoscopy/EGD at some point. Her Hgb is currently stable. Will follow. (3) Type 2 diabetes mellitus Status: Chronic Assessment & Plan: She is currently on sliding scale level #1. (4) Acute renal failure Status: Acute Assessment & Plan: Most likely due to dehydration and use of ibuprofen for her DJDz. Will stop IV fluids, stop NSAID, watch UOP and labs. Her creatinine is slightly improved to 2.9 today. It appears that since June, she has had acute worsening of the creatinine. She has had persistent microscopic hematuria and pyuria on UA. Previous CT haven't shown kidney parenchymal problems or evidence of obstruction. Renal US was normal. She likely needs follow up with a Lead Medical Technologist. (5) Pulmonary nodule Status: Chronic Assessment & Plan: She will need CT scan of her chest after this acute problem /renal failure has resolved. (6) Neuropathy Status: Chronic Assessment & Plan: Leg pain is much improved with the addition of Gabapentin. She will need a script when she goes home. (7) Dehydration Status: Acute Assessment & Plan: Resolved with Iv fluids. Exam Sepsis Risk: No Definite Risk Problem Qualifiers (1) Acute renal failure: Acute renal failure type: unspecified Qualified Codes: N17.9 - Acute kidney failure, unspecified KEHINDE CALHOUN MD October 11, 2017 09:18
[2017-10-11] MEDS: INSULIN HUM LISPRO 100 UN/ML 3 ML VIAL SUBQ PRN ×2 (11:51→16:48)
--- NOTE | 2017-10-11 13:46 | Medical Nutrition Therapy ---
Nutrition Anthropometrics Height (Inches): 64 Weight (Pounds): 154 Weight (Calculated Kilograms): 70.080 BMI: 22 Todd Nutrition Score: Probably Inadequate Todd Nutrition Risk Score: 16 Dietary Referral Nutrition Risk Factors: Recent Nutrition Impact Nutrition Risk Comment: n/v x a mo Physical Findings Physical Appearance: Overweight BMI 25-29 Skin Appearance Skin Appearance: Edema Edema Location Modifier: Both Edema Location: Ankle Type of Edema: Degree of Edema: Gastrointestinal Symptoms GI Symtoms: Change in Bowel Pattern Tube Present: Bowel Sounds: Recent Bowel Pattern: Stool Characteristics: Nutritional Diagnosis Nutritional Risk Acuity 1: Acute/ES Renal Nutritional Risk Acuity 3: Nausea Past Medical History: Type 2 diabetes mellitus, Wrist fracture, hysterectomy, Recurrent UTI Nutritional Acuity: 1-High Nutrition Diagnosis: Decreased Nutrient Needs Nutrition Etiology: Physiological Causes Nutrition Problem/Etiology/Sym: Decreased protein r/t dx ARF AEB creatinine 2.9, BUN 49. Energy Requirement: 1470 (M- StJ) Protein Requirement: 51 (.8gm/kg) Fluid Requirement: 1920 Diet Type: Diabetic Nutrition Intervention: Cont diet as ordered, Encourage intake Food Likes: likes vegetable cup Nutritional Education Nutrition Education Topic: Diabetic Nutrition Learning Readiness: Not Interested Teaching Methods: Discussion Nutrition Counseling: Pt refused addtional education on diabetes Nutrition Monitoring & Eval Nutrition Goals: Eat 75-100% Meal RD Patient Assessment Time: [address] Assessment Type: RD Re-Assessment Patient Nutrition Acuity: 1-High Follow Up Date: Oct 14, 2017 Nutritional Comment: 10/08 Pt admitted with 4 day N/V, dehydration with ARF. Pt has dx T2DM and is recieving insulin. Pt on clear liquid diet. BUN 54, creatinine 4.2, alb 2,7, BG elevated up to 239, Hgb 7.9, Hct 21.8. Will cont to monitor. BK 10/11 Pt has advanced to ADA diet with oral intake of 50% to 100%. Pt is no longer is experiencing D/V, but is still nausea and has a poor appetite. Pt dehydration has been resolved with IV fluids. Pt has gained 14# since admission, 10/08 pt wt 140# and today pt wt is 154#, could be related to fluids. Notable labs indicate elevated H/H, BUN (49), creatinine (2.9), elevated WBC due to infection, and elevated whole blood glucose (214). Pt daughter has been bringing in higher carb foods, that maybe exceed doctor ADA diet order, and may contributing to elevated blood sugars. Continue to monitor pt wt and progress. GIAN SAGASTUME October 11, 2017 09:38
[2017-10-11 17:11] VITALS: BP 171/87
[2017-10-11 18:50] VITALS: BP 172/95
[2017-10-11] MEDS: ACETAMINOPHEN 325 MG TAB PO PRN (19:13)
[2017-10-11 19:19] VITALS: BP 164/91
[2017-10-12 05:09] VITALS: BP 159/85
[2017-10-12 06:07] LABS: PLATELET COUNT, AUTOMATED 189 K/uL (150-450)
[2017-10-12 06:41] VITALS: BP 160/84
[2017-10-12] MEDS: ACETAMINOPHEN 325 MG TAB PO PRN (06:46)
[2017-10-12] MEDS: FAMOTIDINE 20 MG TAB PO SCH (08:26)
[2017-10-12] MEDS: CEPHALEXIN MONO 250 MG CAP PO SCH (08:26)
[2017-10-12] MEDS: GABAPENTIN 100 MG CAP PO SCH (08:26)
[2017-10-12] MEDS ORDERED: CEPH250C11 PO (09:20)
[2017-10-12] MEDS ORDERED: FAMO-67 PO (09:20)
--- NOTE | 2017-10-12 09:42 | Hospitalist Depart ---
Discharge Summary Reason for Hosp/Final Diag: (1) Recurrent UTI Status: Chronic Hospital Course & Plan: The patient presented with generalized weakness. The patient has a history of recurrent UTIs. Urine culture grew Klebsiella pneumonia. Blood cultures were no growth. She was on empiric treatment with ceftriaxone, and then converted to oral Keflex. WBC trended down overall. She was afebrile. She worked with therapy for her weakness and improved. She will need to follow up with urology after discharge. (2) Anemia Status: Acute Hospital Course & Plan: Etiology was unclear. She received 2 units of PRBC on 10/08. Iron was very low, but TIBC was low and ferritin was high. B12/ Folate were within normal limits. Her stool was negative for blood. She likely will need a colonoscopy/EGD at some point as she has not had colon cancer screening in the past. She had been on ibuprofen daily and this was discontinued. Her Hgb remained stable after transfusion. She will need to have ongoing monitoring with her PCP, Dr. Frank. (3) Type 2 diabetes mellitus Status: Chronic Hospital Course & Plan: She was placed on sliding scale level #1 during her inpatient stay. She used less than 3 units of insulin daily. She had been on metformin in the past but it made her sick so she had stopped it on her own prior to admission. She now has renal failure as well so would not be a good candidate for many of the oral medications. Her HgA1c was 5.7 during her stay. She will need to follow up with Dr. Frank after discharge for further monitoring. She was instructed to follow a diabetic diet which she had not been doing this at home prior to admission. (4) Acute renal failure Status: Acute Hospital Course & Plan: Most likely due to dehydration and use of ibuprofen for her diabetic neuropathy. She was hydrated and her creatinine improved but remained elevated (2.8) at discharge. She was instructed to stop all NSAIDs. It appeared on review of the EMR that since June, she had acute worsening of the creatinine. She had persistent microscopic hematuria and pyuria on UA. Previous CTs didn't shown kidney parenchymal problems or evidence of obstruction. Renal US during current admission was normal. She likely will need to follow up with nephrology. Will have her follow up with Dr. Frank for ongoing monitoring of her kidney function. (5) Pulmonary nodule Status: Chronic Hospital Course & Plan: A pulmonary nodule was identified on CT scan of her abdomen pelvis. A nonemergent CT scan of the chest was recommended. She will need CT scan of the chest as an outpatient. (6) Neuropathy Status: Chronic Hospital Course & Plan: Leg pain was much improved with the addition of Gabapentin. She will be discharged on gabapentin 100mg in the am and 200mg in the evening. This will need to be adjusted as an outpatient. (7) Dehydration Status: Acute Hospital Course & Plan: Resolved with Iv fluids. Departure Weight (Pounds): 155 Weight (Ounces): 8.0 Result Diagram: 10/12/1752 10/12/17 0552 Item Value Date Time White Blood Count 22.0 k/uL H 10/07/17 1335 Red Blood Count 2.80 M/uL L 10/07/17 1335 Hemoglobin 9.2 g/dL L 10/07/17 1335 Hematocrit 26.1 % *L 10/07/17 1335 Mean Corpuscular Volume 93.5 fL 10/07/17 1335 Mean Corpuscular Hemoglobin 32.9 pg 10/07/17 1335 Mean Corpuscular Hemoglobin Concent 35.2 g/dL 10/07/17 1335 Red Cell Distribution Width 13.0 % 10/07/17 1335 Platelet Count 319 K/uL 10/07/17 1335 White Blood Count 19.2 k/uL H 10/08/17 0525 Red Blood Count 2.43 M/uL L 10/08/17 0525 Hemoglobin 7.9 g/dL *L 10/08/17 0525 Hematocrit 22.8 % *L 10/08/17 0525 Mean Corpuscular Volume 93.8 fL 10/08/17 0525 Mean Corpuscular Hemoglobin 32.4 pg 10/08/17 0525 Mean Corpuscular Hemoglobin Concent 34.5 g/dL 10/08/17 0525 Red Cell Distribution Width 12.9 % 10/08/17 0525 Platelet Count 279 K/uL 10/08/17 0525 Item Value Date Time Hemoglobin A1c 5.7 % 10/09/17 0534 Vitamin B12 Level 315 pg/mL 10/08/17 0710 Folate 9.4 ng/mL 10/08/17 0710 Iron Level 20 ug/dl L 10/08/17 0710 Total Iron Binding Capacity 174 ug/dl L 10/08/17 0710 Percent Iron Saturation 11.5 % 10/08/17 0710 Ferritin 512 ng/ml H 10/08/17 0710 Troponin I 0.041 ng/ml 10/07/17 1335 Condition: Improved Discharge: Home, Self Care Time Spent: < 30 min Discharge Instructions Home Meds Active Scripts Gabapentin (NEURONTIN) 100 Mg Capsule, 300 MG PO DAILY, #90 CAPSULE 1 Refill Take one tablet po q am and 2 tablets po q pm. Prov:ABRIL STERLING MD 10/12/17 Famotidine (FAMOTIDINE) 20 Mg Tablet, 20 MG PO BID, #60 TAB Prov:ABRIL STERLING MD 10/12/17 Cephalexin Monohydrate (CEPHALEXIN) 250 Mg Cap, 250 MG PO TID, #21 CAP Prov:ABRIL STERLING MD 10/12/17 Discontinued Reported Medications Ibuprofen (IBUPROFEN) 800 Mg Tablet, 1 TAB PO PRN, TAB 10/07/17 Metformin Hcl (METFORMIN HCL) 1,000 Mg Tablet, 1 TAB PO BID, TAB 04/21/17 Insulin Glargine (Lantus) 100 U/Ml Soln, 15 U SC QDAY, 0 Refills 06/25/07 Discontinued Scripts Gly/Min Oil/Petrolat,Wht/Water (LUBRIDERM SENSITIVE SKIN LOT) 473 Ml Lotion, 473 ML TP BID, #1 TAB 0 Refills Prov:INGE HARRINGTON MD 04/21/17 Follow up Referrals: Family Practice - In Two Weeks with Lucina Frank Do Diet: Diabetic Activity: As Tolerated Special Instructions: Schedule appointment to see Dr. Quinonez in the next 1-2 weeks. Copies to: LUCINA FRANK DO; NORMA QUINONEZ MD Venous Thromboembolism Antithrombotics Is Pt On Any Antithrombotics?: No Problem Qualifiers (1) Acute renal failure: Acute renal failure type: unspecified Qualified Codes: N17.9 - Acute kidney failure, unspecified ABRIL STERLING MD Oct 12, 2017 09:42
[2017-10-12] MEDS ORDERED: GABA-488 PO (09:44)
[2017-10-12] MEDS ORDERED: GABAPENTIN 100 MG CAP PO SCH (21:00)
[2017-10-13] MEDS ORDERED: GABAPENTIN 100 MG CAP PO SCH (09:00)
[2017-10-13] MEDS ORDERED: GABAPENTIN 300 MG CAP PO SCH (09:00)
== END 2017-10-12 11:10 | disposition home or self-care (01) | DRG 690 ==
LOC: ER 13:09 → MED 15:32
PROVIDERS: ADMIT Internal Medicine; ATTEND Internal Medicine
PROC: 30233N1 Transfusion of Nonautologous Red Blood Cells into Peripheral Vein, Percutaneous Approach (ICD-10-PCS; principal; 2017-10-08)
DX: N39.0 Urinary tract infection, site not specified (principal); N17.9 Acute kidney failure, unspecified; E11.40 Type 2 diabetes mellitus with diabetic neuropathy, unspecified; E86.0 Dehydration; T39.315A Adverse effect of propionic acid derivatives, initial encounter; B96.1 Klebsiella pneumoniae [K. pneumoniae] as the cause of diseases classified elsewhere; D64.9 Anemia, unspecified; R91.1 Solitary pulmonary nodule; R31.29 Other microscopic hematuria; R53.1 Weakness; Z88.2 Allergy status to sulfonamides; Z91.040 Latex allergy status; Z87.891 Personal history of nicotine dependence; Z90.710 Acquired absence of both cervix and uterus; Z91.11 Patient's noncompliance with dietary regimen; Z91.14 Patient's other noncompliance with medication regimen
CPT/HCPCS: 36415; 36416; 74176; 76705; 81001; 82040; 82247; 82274; 82310; 82374; 82435; 82550; 82565; 82607; 82728; 82746; 82947; 82948; 83036; 83540; 83550; 83690; 83735; 84075; 84132; 84155; 84295; 84450; 84460; 84484; 84520; 85025; 85045; 86850; 86900; 86901; 86920; 87040; 87077; 87088; 87186; 93005; 97161; 97165; 99285; A4353; J0696; J7030; J7040; J7050; P9016; Q9967

== ENCOUNTER → 2017-10-07 | Outpatient (CLI) | payer MEDICARE, BC, MEDICAID ==
[2017-06-24 00:09] VITALS: BMI 26.3
[~2017-10-07] MED LIST changes: +CEPH250C11 PO; -DEXTROSE 5%(*) 100 ML BAG 100 ML IVPB PRN; +FAMO-67 PO; +GABA-488 PO; +IBUP800T37 PO; -LIDOCAINE/SOD BICARB 8.4% SYR ID PRN; -METF-420 PO; +METF-421 PO
== END ==
LOC: AMB 12:40
PROVIDERS: ATTEND Nurse Practitioner
DX: R53.1 Weakness (principal); R11.10 Vomiting, unspecified; R19.7 Diarrhea, unspecified; E11.9 Type 2 diabetes mellitus without complications
CPT/HCPCS: A0425; A0427

== ENCOUNTER 2017-10-12 18:47 | Inpatient (IN) | payer MEDICARE, BC, MEDICAID ==
[~2017-10-12] VITALS: Ht 162.6 cm; Wt 73.3 kg
[~2017-10-12 18:47] MED LIST changes: -FURO-47 PO
--- NOTE | 2017-10-12 19:04 | ER Report ---
History and Physical Time Seen By MD: 18:55 Hx. of Stated Complaint: Patient discharged today. Patient now reports edema and inability to walk HPI/ROS CHIEF COMPLAINT: weakness, can't walk HISTORY OF PRESENT ILLNESS: This is a 76 year old female. She called EMS who brought her to the ER. She says that her feet have been extremely swollen today and she is too weak to walk. She says that this morning when she went home from the hospital, she felt okay, but then this afternoon, could not stand or walk and feels like she is going to fall. Both legs feel weak. She has no leg pain and no numbness. She has no headache. No abdominal pain. She denies vomiting, but is nauseated. Denies chest pain. I reviewed the records from her hospitalization including discharge summary, progress notes, labs and culture of the urine, and therapy notes. She is on Keflex for a Klebsiella culture positive urinary tract infection Allergies: Coded Allergies: Sulfa (Sulfonamide Antibiotics) (Verified Allergy, Intermediate, 10/12/17) latex (Verified Allergy, Mild, 10/12/17) Home Meds Active Scripts Gabapentin (NEURONTIN) 100 Mg Capsule, 300 MG PO DAILY, #90 CAPSULE 1 Refill Take one tablet po q am and 2 tablets po q pm. Prov:ABRIL MURO MD 10/12/17 Famotidine (FAMOTIDINE) 20 Mg Tablet, 20 MG PO BID, #60 TAB Prov:ABRIL MURO MD 10/12/17 Cephalexin Monohydrate (CEPHALEXIN) 250 Mg Cap, 250 MG PO TID, #21 CAP Prov:ABRIL MURO MD 10/12/17 Discontinued Reported Medications Ibuprofen (IBUPROFEN) 800 Mg Tablet, 1 TAB PO PRN, TAB 10/07/17 Metformin Hcl (METFORMIN HCL) 1,000 Mg Tablet, 1 TAB PO BID, TAB 04/21/17 Insulin Glargine (Lantus) 100 U/Ml Soln, 15 U SC QDAY, 0 Refills 06/25/07 Discontinued Scripts Gly/Min Oil/Petrolat,Wht/Water (LUBRIDERM SENSITIVE SKIN LOT) 473 Ml Lotion, 473 ML TP BID, #1 TAB 0 Refills Prov:INGE HARRINGTON MD 04/21/17 Reviewed Nurses Notes: Yes Hx Smoking: Yes ("maybe a pack a week") Hx Substance Use Disorder: No Hx Alcohol Use: No (extremely rare) Constitutional Vital Sign - Last 24 Hours 10/12/17 10/12/17 10/12/17 10/12/17 18:48 19:00 19:15 19:30 Temp 98.2 Pulse 83 83 87 85 Resp 16 B/P (MAP) 177/94 166/86 (112) Pulse Ox 98 95 98 95 O2 Delivery Room Air 10/12/17 20:30 B/P (MAP) 174/95 (121) Physical Exam General Appearance: The patient is alert. No acute distress. Eyes: Pupils are equal, round. No pallor, injection or icterus. ENT: Mucous membranes are moist. Normal oral mucosa. Posterior oropharynx is normal. Neck: Supple and non tender. Respiratory: Lungs are clear to auscultation. Cardiovascular: Regular rate and rhythm. No murmurs, gallops or rubs. 1+ edema in the feet and trace in the ankles/lower legs. Gastrointestinal: Abdomen is soft and non tender. Nondistended. Normal active bowel sounds. Neurological: Alert and oriented x3. No focal neurologic deficits. Her sensation is normal in the feet. She cannot lift the legs off the bed with her hip flexors. She seems to have equal strength in the feet and ankles. She has diminished but equal reflexes, non-focal exam. No other focal deficits. Skin: Warm and dry. No rashes on the legs. Musculoskeletal: Extremities with minimal tenderness in the shins and feet when testing for pitting edema. No calf or thigh pain. No tenderness in palpation of the cervical, thoracic and lumbar spine. DIFFERENTIAL DIAGNOSIS: After history and physical exam, differential diagnosis was considered for generalized weakness and current treatment for urinary tract infection Medical Decision Making Data Points Result Diagram: 10/12/17192310/12/171923 Laboratory Hematology Test 10/12/17 19:24 10/12/17 20:13 Red Blood Count 3.25 M/uL (4.17-5.56) Mean Corpuscular Volume 90.8 fL (80.0-96.0) Mean Corpuscular Hemoglobin 32.3 pg (26.0-33.0) Mean Corpuscular Hemoglobin Concent 35.6 g/dL (32.0-36.0) Red Cell Distribution Width 14.6 % (11.5-14.5) Mean Platelet Volume 7.4 fL (7.2-11.1) Neutrophils (%) (Auto) 84.8 % (39.4-72.5) Lymphocytes (%) (Auto) 7.9 % (17.6-49.6) Monocytes (%) (Auto) 4.8 % (4.1-12.4) Eosinophils (%) (Auto) 2.1 % (0.4-6.7) Basophils (%) (Auto) 0.4 % (0.3-1.4) Nucleated RBC Relative Count (auto) 0.0 /100WBC Neutrophils # (Auto) 11.6 K/uL (2.0-7.4) Lymphocytes # (Auto) 1.1 K/uL (1.3-3.6) Monocytes # (Auto) 0.7 K/uL (0.3-1.0) Eosinophils # (Auto) 0.3 K/uL (0.0-0.5) Basophils # (Auto) 0.1 K/uL (0.0-0.1) Nucleated RBC Absolute Count (auto) 0.00 K/uL Sodium Level 138 mmol/L (137-145) Potassium Level 3.3 mmol/L (3.5-5.0) Chloride Level 110 mmol/L (98-107) Carbon Dioxide Level 16 mmol/L (22-31) Blood Urea Nitrogen 46 mg/dl (7-18) Creatinine 2.80 mg/dl (0.52-1.04) Glomerular Filtration Rate Calc 16.5 Random Glucose 159 mg/dl (75-110) Calcium Level 8.2 mg/dl (8.4-10.2) Total Bilirubin 0.4 mg/dl (0.2-1.3) Aspartate Amino Transf (AST/SGOT) 29 U/L (0-35) Alanine Aminotransferase (ALT/SGPT) 50 U/L (0-56) Alkaline Phosphatase 161 U/L (0-126) Total Protein 6.0 gm/dl (6.3-8.2) Albumin 2.6 g/dl (3.5-5.0) Urine Color Yellow Urine Clarity Slightly-cloudy Urine pH 5.0 pH (4.8-9.5) Urine Specific Dwight 1.008 Urine Protein 30 mg/dL (NEGATIVE) Urine Glucose (UA) Negative mg/dL (NEGATIVE) Urine Ketones Negative mg/dL (NEGATIVE) Urine Blood Large (NEGATIVE) Urine Nitrite Negative (NEGATIVE) Urine Bilirubin Negative (NEGATIVE) Urine Urobilinogen Negative mg/dL (0.2-1.9) Urine Leukocyte Esterase Moderate (NEGATIVE) Urine RBC 220 /HPF (0-2/HPF) Urine WBC 69 /HPF (0-5/HPF) Urine Squamous Epithelial Cells Many /LPF (</=FEW) Urine Bacteria Few /HPF (NONE-FEW) Urine Mucus None /HPF (NONE-FEW) Urine Yeast (Budding) Few /HPF Chemistry Test 10/12/17 19:24 10/12/17 20:13 White Blood Count 13.7 k/uL (4.5-11.0) Red Blood Count 3.25 M/uL (4.17-5.56) Hemoglobin 10.5 g/dL (12.0-16.0) Hematocrit 29.4 % (34.0-47.0) Mean Corpuscular Volume 90.8 fL (80.0-96.0) Mean Corpuscular Hemoglobin 32.3 pg (26.0-33.0) Mean Corpuscular Hemoglobin Concent 35.6 g/dL (32.0-36.0) Red Cell Distribution Width 14.6 % (11.5-14.5) Platelet Count 182 K/uL (150-450) Mean Platelet Volume 7.4 fL (7.2-11.1) Neutrophils (%) (Auto) 84.8 % (39.4-72.5) Lymphocytes (%) (Auto) 7.9 % (17.6-49.6) Monocytes (%) (Auto) 4.8 % (4.1-12.4) Eosinophils (%) (Auto) 2.1 % (0.4-6.7) Basophils (%) (Auto) 0.4 % (0.3-1.4) Nucleated RBC Relative Count (auto) 0.0 /100WBC Neutrophils # (Auto) 11.6 K/uL (2.0-7.4) Lymphocytes # (Auto) 1.1 K/uL (1.3-3.6) Monocytes # (Auto) 0.7 K/uL (0.3-1.0) Eosinophils # (Auto) 0.3 K/uL (0.0-0.5) Basophils # (Auto) 0.1 K/uL (0.0-0.1) Nucleated RBC Absolute Count (auto) 0.00 K/uL Glomerular Filtration Rate Calc 16.5 Calcium Level 8.2 mg/dl (8.4-10.2) Total Bilirubin 0.4 mg/dl (0.2-1.3) Aspartate Amino Transf (AST/SGOT) 29 U/L (0-35) Alanine Aminotransferase (ALT/SGPT) 50 U/L (0-56) Alkaline Phosphatase 161 U/L (0-126) Total Protein 6.0 gm/dl (6.3-8.2) Albumin 2.6 g/dl (3.5-5.0) Urine Color Yellow Urine Clarity Slightly-cloudy Urine pH 5.0 pH (4.8-9.5) Urine Specific Dwight 1.008 Urine Protein 30 mg/dL (NEGATIVE) Urine Glucose (UA) Negative mg/dL (NEGATIVE) Urine Ketones Negative mg/dL (NEGATIVE) Urine Blood Large (NEGATIVE) Urine Nitrite Negative (NEGATIVE) Urine Bilirubin Negative (NEGATIVE) Urine Urobilinogen Negative mg/dL (0.2-1.9) Urine Leukocyte Esterase Moderate (NEGATIVE) Urine RBC 220 /HPF (0-2/HPF) Urine WBC 69 /HPF (0-5/HPF) Urine Squamous Epithelial Cells Many /LPF (</=FEW) Urine Bacteria Few /HPF (NONE-FEW) Urine Mucus None /HPF (NONE-FEW) Urine Yeast (Budding) Few /HPF Urinalysis Test 10/12/17 20:13 Urine Color Yellow Urine Clarity Slightly-cloudy Urine pH 5.0 pH (4.8-9.5) Urine Specific Dwight 1.008 Urine Protein 30 mg/dL (NEGATIVE) Urine Glucose (UA) Negative mg/dL (NEGATIVE) Urine Ketones Negative mg/dL (NEGATIVE) Urine Blood Large (NEGATIVE) Urine Nitrite Negative (NEGATIVE) Urine Bilirubin Negative (NEGATIVE) Urine Urobilinogen Negative mg/dL (0.2-1.9) Urine Leukocyte Esterase Moderate (NEGATIVE) Urine RBC 220 /HPF (0-2/HPF) Urine WBC 69 /HPF (0-5/HPF) Urine Squamous Epithelial Cells Many /LPF (</=FEW) Urine Bacteria Few /HPF (NONE-FEW) Urine Mucus None /HPF (NONE-FEW) Urine Yeast (Budding) Few /HPF ED Course/Re-evaluation ED Course Discussed the case with Dr. Muro. The patient is unable to transfer to a commode without a full to nurse assist. She is unable to even lift her legs off the bed with weakness and bilateral hip flexors. Labs with multiple abnormalities but all mild and when compared to recent labs, no significant changes. Decision to Disposition Date: Oct 12, 2017 Decision to Disposition Time: 20:26 Depart Departure Latest Vital Signs Vital Signs Date Time Temp Pulse Resp B/P (MAP) Pulse Ox O2 Delivery O2 Flow Rate FiO2 10/12/17 20:30 174/95 (121) 10/12/17 19:30 85 95 10/12/17 18:48 98.2 16 Room Air Impression: Primary Impression: Weakness generalized Additional Impression: Urinary tract infection Condition: Condition Unchanged Disposition: Admitted from ER Referrals: GIAN KELLER DO (PCP) Problem Qualifiers Additional Impression: Urinary tract infection Urinary tract infection type: acute cystitis Hematuria presence: without hematuria Qualified Codes: N30.00 - Acute cystitis without hematuria YADIRA RIGGS MD Oct 12, 2017 19:04
[2017-10-12 19:35] LABS: PLATELET COUNT, AUTOMATED 182 K/uL (150-450)
[2017-10-12] MEDS ORDERED: INFLUENZA VIRUS VAC 0.5 ML SYR IM ONLY ONE (21:10)
[2017-10-12] MEDS ORDERED: NS(*) 0.9% 1000 ML BAG 1,000 ML IV PRN (21:10)
[2017-10-12] MEDS ORDERED: INSULIN HUM LISPRO 100 UN/ML 3 ML VIAL SUBQ PRN (21:15)
[2017-10-12] MEDS ORDERED: cefTRIAXone 1 GM VIAL IVP SCH ×2 (21:25→21:30)
[2017-10-12] MEDS ORDERED: KCL/NS* 20 MEQ/1000 ML PREMIX 1,000 ML IV SCH (21:30)
[2017-10-12 21:32] VITALS: BP 168/91
--- NOTE | 2017-10-12 22:14 | History & Physical ---
History of Present Illness Chief Complaint The patient is a 76 year old female who was discharge this am and returns this evening complaining of weakness and swollen legs. History of Present Illness The patient was admitted to [facility] on 10/07 with weakness, anemia, UTI and acute renal failure. She has a history of recurrent UTIs. She was treated with IV fluids and antibiotics (ceftriaxone, then Keflex), and received 2u PRBCs. Her anemia was felt to be due to gastritis from mcfp NSAID use. Her hgb improved and remained stable after her transfusion. Her initial creatinine was 4.5 (NSAIDs, DM, dehydration) but improved to 2.8 with hydration. She worked with PT/OT and was cleared for discharge. This am, prior to discharge, she walked the length of the [place] without difficulty. The patient states she felt well at discharge. She went home and sat in her recliner with a stool under her feet. She states her feet swelled "horribly". She went to use the restroom this evening and felt weak like her legs were going to give out. She has type II DM and diabetic neuropathy. She had been taking ibuprofen 800mg at a time for this prior to her recent admission but this was stopped due to her renal failure and probable gastritis. She was placed on gabapentin for her leg pain and did have some improvement prior to discharge. The patient's family brought her back to [facility] ER for evaluation. Per the ER physician, the patient required 2 people to assist her to the commode in the ER. She denies fever or chills. She has had a runny nose and watering of her eyes but has allergies and her son stated earlier today that this had been going on prior to her previous admission. She denies cough or shortness of breath. She denies chest pain or abdominal pain. She denies melena or BRB per rectum. History Problems: (1) Neuropathy Status: Chronic (2) Anemia Status: Acute Comment: Improved after transfusion. (3) Pulmonary nodule Status: Chronic (4) Type 2 diabetes mellitus Status: Chronic (5) Acute renal failure Status: Acute Comment: Improving. (6) Recurrent UTI Status: Acute (7) Wrist fracture Status: Resolved (8) History of hysterectomy Status: Resolved Home Meds Active Scripts Gabapentin (NEURONTIN) 100 Mg Capsule, 300 MG PO DAILY, #90 CAPSULE 1 Refill Take one tablet po q am and 2 tablets po q pm. Prov:ABRIL STERLING MD 10/12/17 Famotidine (FAMOTIDINE) 20 Mg Tablet, 20 MG PO BID, #60 TAB Prov:ABRIL STERLING MD 10/12/17 Cephalexin Monohydrate (CEPHALEXIN) 250 Mg Cap, 250 MG PO TID, #21 CAP Prov:ABRIL STERLING MD 10/12/17 Discontinued Reported Medications Ibuprofen (IBUPROFEN) 800 Mg Tablet, 1 TAB PO PRN, TAB 10/07/17 Metformin Hcl (METFORMIN HCL) 1,000 Mg Tablet, 1 TAB PO BID, TAB 04/21/17 Insulin Glargine (Lantus) 100 U/Ml Soln, 15 U SC QDAY, 0 Refills 06/25/07 Discontinued Scripts Gly/Min Oil/Petrolat,Wht/Water (LUBRIDERM SENSITIVE SKIN LOT) 473 Ml Lotion, 473 ML TP BID, #1 TAB 0 Refills Prov:INGE HARRINGTON MD 04/21/17 Allergies: Coded Allergies: Sulfa (Sulfonamide Antibiotics) (Verified Allergy, Intermediate, 10/12/17) latex (Verified Allergy, Mild, 10/12/17) Patient History: Patient reports no known family medical history. Other Social/Family Hx The patient lives alone. She has children in [place] who watch after her closely. Hx Smoking: Yes (probably smokes once a month) Smoking Status: Current: Some Days Smoker Exposure to Second Hand Smoke?: No Caffeine Intake: Tea Caffeine/Cups Per Day: Daily Hx Alcohol Use: No Hx Substance Use Disorder: No Social Drug Use: Never History of IV Drug Use: No Review of Systems Constitutional: No Fever, No Chills Neurological: Weakness ENT: No Hearing Loss Cardiovascular: Other (Complains of leg swelling.) Respiratory: No Shortness of Breath, No Cough Gastrointestinal: No Nausea, No Vomiting, No Diarrhea Genitourinary: No Dysuria Musculoskeletal: Pain (Both lower legs below the knees.) Psychiatric: No Depression, No Anxiety Exam Vital Signs Vital Signs Date Time Temp Pulse Resp B/P (MAP) Pulse Ox O2 Delivery O2 Flow Rate FiO2 10/12/17 20:30 174/95 (121) 10/12/17 19:30 85 95 10/12/17 18:48 98.2 16 Room Air General Appearance: Alert, Awake, No Acute Distress, Afebrile Neuro: No Gross deficits, Other (Strength is full and equal in upper extremities. Hip flexors are 4/5 and equal bilaterally. Patellar tendon reflexes are absent bilaterally. Plantar and dorsi-flexion are 4/5 and equal bilaterally in feet.) Eyes: PERRLA Neck: No Masses Cardiovascular: Regular Rate and Rhythm Respiratory: Clear to Auscultation GI: Abd Soft and Non-Tender, Other (No masses or organomegaly.) Lymph: Cervical Nodes Benign Extremities: Warm, Perfused, Other (Trace to 1+ edema, unchanged from exam this am.) Integumentary: Generalized Fragile Skin Psych: Alert & Oriented X3, Appropriate Mood & Affect Medical Decision Making Data Points Result Diagram: 10/12/17192310/12/171923 Item Value Date Time Calcium Level 8.2 mg/dl L 10/12/171923 Total Bilirubin 0.4 mg/dl 10/12/171923 Aspartate Amino Transf (AST/SGOT) 29 U/L 10/12/171923 Alanine Aminotransferase (ALT/SGPT) 50 U/L 10/12/171923 Alkaline Phosphatase 161 U/L H 10/12/171923 Total Protein 6.0 gm/dl L 10/12/171923 Albumin 2.6 g/dl L 10/12/171923 Clean catch UA done-poor specimen. Cath UA with culture pending. EKG / Imaging Monitor Interpretation: Normal Sinus Rhythm Pre-Admit Course Medical Record Review: Yes Assessment and Plan Problems: (1) Weakness generalized Status: Acute Assessment & Plan: The patient was discharged earlier today. She was cleared by therapy prior to discharge. Will consult PT/OT. (2) Recurrent UTI Status: Acute Assessment & Plan: Clean catch UA in ER was a poor specimen with many squamous epithelial cells noted. Will do a cath UA and culture. (3) Acute renal failure Status: Acute Assessment & Plan: Creatinine remains elevated at 2.8 (down from 4.5). Will gently hydrate and monitor labs. (4) Anemia Status: Acute Assessment & Plan: She received 2u PRBCs during her last admission. Hgb is stable at 10.5. (5) Type 2 diabetes mellitus Status: Chronic Assessment & Plan: Will place on SSI level 1 [address] Place on diabetic diet. (6) Neuropathy Status: Chronic Assessment & Plan: Continue gabapentin 100mg in the am and 200mg at HS. Time Spent on Plan of Care: < 30 min Venous Thromboembolism Antithrombotics Is Pt On Any Antithrombotics?: Yes Exam Sepsis Risk: No Definite Risk ABRIL STERLING MD Oct 12, 2017 22:13
[2017-10-12] MEDS: GABAPENTIN 100 MG CAP PO SCH (22:54)
[2017-10-12] MEDS: FAMOTIDINE 20 MG TAB PO SCH (22:54)
[2017-10-13] MEDS ORDERED: WATER STERILE(*) 10 ML VIAL 10 ML ONE (00:03)
[2017-10-13 03:54] VITALS: BP 165/87
[2017-10-13 05:36] LABS: PLATELET COUNT, AUTOMATED 169 K/uL (150-450)
[2017-10-13] MEDS: ACETAMINOPHEN 325 MG TAB PO PRN ×3 (05:50→19:18)
[2017-10-13 06:59] VITALS: BP 171/84
--- NOTE | 2017-10-13 08:57 | Hospitalist Progress Note ---
Subjective Progress Notes Subjective This patient was readmitted last evening after discharging earlier in the day. She had no acute events overnight. Patient Complains of: Cardiovascular: No: Chest Pain Respiratory: No: Shortness of Breath Physical Exam Vital Signs Date Time Temp Pulse Resp B/P (MAP) Pulse Ox O2 Delivery O2 Flow Rate FiO2 10/13/17 07:30 98 Nasal Cannula 0.5 10/13/17 06:59 98.4 80 16 171/84 (113) Intake and Output 10/14/17 06:59 # Voids 1 # Bowel Movements 1 Cardiovascular: Regular Rate and Rhythm Respiratory: Clear to Auscultation Extremities: No Edema Result Diagram: 10/13/17 0510/13/17521 Monitor Interpretation: Normal Sinus Rhythm Assessment and Plan Problems: (1) Weakness generalized Status: Acute Assessment & Plan: She did pass all of her therapy goals prior to discharge, but apparently went home and could not ambulate. Physical and occupational therapy consults have been reordered. She likely will need different arrangements before she discharges again. (2) Recurrent UTI Status: Acute Assessment & Plan: She was treated for a urinary infection during her last admission. That culture was positive for Klebsiella. (3) Acute renal failure Status: Acute Assessment & Plan: Improving with IV fluids. (4) Anemia Status: Acute Assessment & Plan: She received 2u PRBCs during her last admission. Her Hgb is currently stable. (5) Type 2 diabetes mellitus Status: Chronic Assessment & Plan: She is not on chronic treatment at home. She is on coverage with sliding scale level #1. (6) Neuropathy Status: Chronic Assessment & Plan: She is on chronic treatment with gabapentin. Exam Sepsis Risk: No Definite Risk AMIE ROMAN DO Oct 13, 2017 08:57
[2017-10-13] MEDS ORDERED: ENOXAPARIN 40 MG/0.4ML SYR SC SCH (09:00)
[2017-10-13] MEDS: FAMOTIDINE 20 MG TAB PO SCH ×2 (09:03→21:25)
[2017-10-13] MEDS: ENOXAPARIN 30 MG/0.3 ML SYR SC SCH (09:03)
[2017-10-13] MEDS: GABAPENTIN 100 MG CAP PO SCH ×2 (09:03→21:25)
[2017-10-13 10:09] VITALS: Ht 162.6 cm; Wt 73.3 kg
--- NOTE | 2017-10-13 10:27 | Medical Nutrition Therapy ---
Nutrition Anthropometrics Height (Inches): 64.00 Height (Calculated Centimeters: 162.023595 Weight (Pounds): 161 Weight (Calculated Kilograms): 73.255 Todd Nutrition Score: Adequate Todd Nutrition Risk Score: 17 Dietary Referral Nutrition Risk Factors: Recent Nutrition Impact Nutrition Risk Comment: n/v x a mo Physical Findings Physical Appearance: Overweight BMI 25-29 Skin Appearance Skin Appearance: Edema Edema Location Modifier: Both Edema Location: Foot Type of Edema: Degree of Edema: 1+ Gastrointestinal Symptoms GI Symtoms: Tube Present: Bowel Sounds: Recent Bowel Pattern: Stool Characteristics: Nutrition/Food History No Significant Nutr. HX Nutritional Diagnosis Nutritional Risk Acuity 1: Acute/ES Renal Nutritional Risk Acuity 4: Good Appetite Past Medical History: Type 2 diabetes mellitus, Wrist fracture, hysterectomy, Recurrent UTI Nutritional Acuity: 1-High Nutrition Diagnosis: Decreased Nutrient Needs Nutrition Etiology: Physiological Causes Nutrition Problem/Etiology/Sym: Decreased Nutrient Needs (protein, sodium) related to renal dysfunction AEB high BUN/Creat, diagnosis of ARF, and edema. Energy Requirement: 1580 (Montgomery-St Jeor: Actual BW X 1.3) Protein Requirement: 58 (Actual BW Kg X .8) Fluid Requirement: 1580 Diet Type: Diabetic Nutrition Intervention: Cont diet as ordered Nutrition Monitoring & Eval Nutrition Goals: Eat 75-100% Meal RD Patient Assessment Time: [address] Assessment Type: RD Assessment Patient Nutrition Acuity: 1-High Follow Up Date: Oct 16, 2017 Nutritional Comment: 10/12/17 Pt discharged 10/12/17 and returned same day with lower extremity swelling and weakness. High WBC, Low H/H, Glu 120, High BUN/Creat, Alk phos 161. Overwt with BMI of 27.6 - edema may provide inaccuate BMI. Lispo SSI to treat T2DM in hospital. Receiving Diabetes diet and consumed 100% of first meal in facility. Monitor labs, intake. Follow clinical progress. -PRINCESS ALANIZ Oct 13, 2017 10:27
[2017-10-13 12:00] VITALS: BP 159/80
[2017-10-13] MEDS: CEPHALEXIN MONO 250 MG CAP PO SCH ×2 (14:20→21:25)
[2017-10-13 15:40] VITALS: BP 159/82
[2017-10-13 19:14] VITALS: BP 167/86
[2017-10-13] MEDS ORDERED: cefTRIAXone(*) 1 GM VIAL 1 GM in NS(*) 0.9% 100 ML ADDVANT BAG 100 ML IVPB SCH (21:00)
[2017-10-14 02:30] VITALS: BP 171/93
[2017-10-14 07:16] VITALS: BP 167/98
--- NOTE | 2017-10-14 08:01 | Hospitalist Progress Note ---
Subjective Progress Notes Subjective She reports still having occasional "weak" feeling. She is working with PT/OT. She has had some right hip/groin pain when up. Physical Exam Vital Signs Date Time Temp Pulse Resp B/P (MAP) Pulse Ox O2 Delivery O2 Flow Rate FiO2 10/14/17 07:20 96 10/14/17 07:17 Room Air 10/14/17 07:16 98.4 88 20 167/98 (121) 10/13/17 07:30 0.5 General Appearance: Alert, Awake Neuro: No Gross deficits Cardiovascular: Regular Rate and Rhythm, No Edema Respiratory: Clear to Auscultation GI: Soft and Non-Tender Extremities: Warm, Perfused Result Diagram: 10/13/1752110/13/17521 Monitor Interpretation: Normal Sinus Rhythm Assessment and Plan Problems: (1) Weakness generalized Status: Acute Assessment & Plan: She did pass all of her therapy goals prior to discharge, but apparently went home and could not ambulate. PT/OT are seeing her. Will check x-rays of her hips as it sounds like she may have some DJD. Question if she may be more symptomatic with her renal dysfunction. She likely will need different arrangements before she discharges again. (2) Recurrent UTI Status: Acute Assessment & Plan: She was treated for a urinary infection during her last admission. That culture was positive for Klebsiella. She is completing a full course of antibiotics with Keflex. (3) Acute renal failure Status: Acute Assessment & Plan: It appears she has some acute on chronic dysfunction. Her creatinine is 2.6 this AM. Improving with IV fluids. Will check 24 hour urine for creatinine and protein. (4) Anemia Status: Acute Assessment & Plan: She received 2u PRBCs during her last admission. Her Hgb is fairly stable, but still low. Her iron studies showed decreased saturation with an elevated ferritin level. She may need full GI evaluation with endoscopy. Will check erythropoietin level today. (5) Type 2 diabetes mellitus Status: Chronic Assessment & Plan: She is not on chronic treatment at home. Her glucoses have been fairly good on diet alone (106-159). She is on coverage with sliding scale level #1. (6) Neuropathy Status: Chronic Assessment & Plan: She is on chronic treatment with gabapentin. Exam Sepsis Risk: No Definite Risk CONNOR STERLING MD Oct 14, 2017 08:01
[2017-10-14] MEDS ORDERED: NS(*) 0.9% 1000 ML BAG 1,000 ML IV PRN (08:05)
[2017-10-14] MEDS: ENOXAPARIN 30 MG/0.3 ML SYR SC SCH (09:16)
[2017-10-14] MEDS: CEPHALEXIN MONO 250 MG CAP PO SCH ×3 (09:16→20:31)
[2017-10-14] MEDS: FAMOTIDINE 20 MG TAB PO SCH ×2 (09:16→20:31)
[2017-10-14] MEDS: GABAPENTIN 100 MG CAP PO SCH ×2 (09:16→20:32)
[2017-10-14] MEDS: ACETAMINOPHEN 325 MG TAB PO PRN ×2 (09:22→17:53)
[2017-10-14 11:25] VITALS: BP 162/81
[2017-10-14 15:20] VITALS: BP 157/81
[2017-10-14 19:18] VITALS: BP 163/84
[2017-10-14 23:58] VITALS: BP 166/84
[2017-10-15] MEDS: ACETAMINOPHEN 325 MG TAB PO PRN (05:15)
[2017-10-15 05:47] LABS: PLATELET COUNT, AUTOMATED 220 K/uL (150-450)
--- NOTE | 2017-10-15 08:40 | Hospitalist Progress Note ---
Subjective Progress Notes Subjective The patient denies new complaints. Physical Exam Vital Signs Date Time Temp Pulse Resp B/P (MAP) Pulse Ox O2 Delivery O2 Flow Rate FiO2 10/14/17 23:58 98.3 83 14 166/84 (111) 93 Room Air 10/13/17 07:30 0.5 General Appearance: Alert, Awake, No Acute Distress Neuro: No Gross deficits Eyes: PERRLA Cardiovascular: Regular Rate and Rhythm Respiratory: Clear to Auscultation GI: Soft and Non-Tender Extremities: Warm, Perfused, Other (Trace to 1+ edema at ankle bilaterally.) Integumentary: Skin Intact without Lesion / Mass Psych: Appropriate Mood & Affect Result Diagram: 10/15/17 0532 10/15/17 0532 Monitor Interpretation: Normal Sinus Rhythm Assessment and Plan Problems: (1) Weakness generalized Status: Acute Assessment & Plan: She did pass all of her therapy goals prior to discharge, but apparently went home and could not ambulate. PT/OT are seeing her. Will check x-rays of her hips as it sounds like she may have some DJD. Question if she may be more symptomatic with her renal dysfunction. She likely will need different arrangements before she discharges again. (2) Recurrent UTI Status: Acute Assessment & Plan: She was treated for a urinary infection during her last admission. That culture was positive for Klebsiella. She is completing a full course of antibiotics with Keflex. (3) Acute renal failure Status: Acute Assessment & Plan: It appears she has some acute on chronic dysfunction. Her creatinine is 2.6 this AM. Improving with IV fluids. A 24 hour urine for creatinine and protein was ordered but the patient is incontinent and refuses a lundberg cath for 24 hours. (4) Anemia Status: Acute Assessment & Plan: She received 2u PRBCs during her last admission. Her Hgb is fairly stable, but still low. Her iron studies showed decreased saturation with an elevated ferritin level. She may need full GI evaluation with endoscopy. Erythropoietin level is low which may be due to recent transfusion. She would benefit from hematology consultation as well. (5) Type 2 diabetes mellitus Status: Chronic Assessment & Plan: She is not on chronic treatment at home. Her glucoses have been fairly good on diet alone (106-159). She is on coverage with sliding scale level #1. She had only required one unit of insulin so far. (6) Neuropathy Status: Chronic Assessment & Plan: She is on chronic treatment with gabapentin. Time Spent on Plan of Care: < 30 min Exam Sepsis Risk: No Definite Risk ABRIL STERLING MD Oct 15, 2017 08:40
[2017-10-15 08:44] VITALS: BP 170/82
[2017-10-15] MEDS: FAMOTIDINE 20 MG TAB PO SCH (08:55)
[2017-10-15] MEDS: CEPHALEXIN MONO 250 MG CAP PO SCH ×2 (08:55→14:00)
[2017-10-15] MEDS: GABAPENTIN 100 MG CAP PO SCH (08:56)
[2017-10-15] MEDS: ENOXAPARIN 30 MG/0.3 ML SYR SC SCH (08:56)
[2017-10-15] MEDS ORDERED: METOPROLOL SUCC XL 25 MG TABCR PO SCH (09:00)
[2017-10-15 10:55] VITALS: BP 158/76
--- NOTE | 2017-10-15 13:34 | Hospitalist Depart ---
Discharge Summary Reason for Hosp/Final Diag: (1) Weakness generalized Status: Acute Hospital Course & Plan: The patient presented to [facility] ER with weakness several hours after being discharged. She had passed all of her therapy goals prior to discharge, but apparently went home and could not ambulate. She was readmitted. PT/OT were consulted. It was felt the patient may be more symptomatic due to her renal dysfunction. (2) Recurrent UTI Status: Acute Hospital Course & Plan: She was treated for a urinary infection during her previous admission. That culture was positive for Klebsiella. She was continued on Keflex 250mg tid. Her urinalysis did show marked improvement on recheck. (3) Acute renal failure Status: Acute Hospital Course & Plan: It appeared that she had some acute on chronic dysfunction. A 24 hour urine for creatinine and protein was ordered but the patient was incontinent and refused a lundberg cath for 24 hours. Her creatinine on discharge was 2.7. She will need ongoing monitoring of her renal function as an outpatient and will most likely need to see nephrology as an outpatient as well. (4) Anemia Status: Acute Hospital Course & Plan: She received 2u PRBCs during her last admission. Her Hgb remained fairly stable, but still low. Her iron studies showed decreased saturation with an elevated ferritin level. She may need full GI evaluation with endoscopy. Erythropoietin level was low which may be due to recent transfusion. She would benefit from hematology consultation as an outpatient as well. (5) Type 2 diabetes mellitus Status: Chronic Hospital Course & Plan: She is not on chronic treatment at home. Her glucoses were fairly controlled on diet alone (106-159). She was placed on coverage with sliding scale level #1. She only required one unit of insulin during her stay. (6) Neuropathy Status: Chronic Hospital Course & Plan: She was continued on chronic treatment with gabapentin. Departure Weight (Pounds): 161 Weight (Ounces): 8.0 Result Diagram: 10/15/1753110/15/17531 Condition: Improved Discharge: Home PT/OT Follow Up For: PT Evaluation and Treat, OT Evaluation and Treat Home Health RN Follow Up For: Nursing Assessment Time Spent: < 30 min Discharge Instructions Home Meds Active Scripts Gabapentin (NEURONTIN) 100 Mg Capsule, 300 MG PO DAILY, #90 CAPSULE 1 Refill Take one tablet po q am and 2 tablets po q pm. Prov:ABRIL STERLING MD 10/12/17 Famotidine (FAMOTIDINE) 20 Mg Tablet, 20 MG PO BID, #60 TAB Prov:ABRIL STERLING MD 10/12/17 Cephalexin Monohydrate (CEPHALEXIN) 250 Mg Cap, 250 MG PO TID, #21 CAP Prov:ABRIL STERLING MD 10/12/17 Discontinued Reported Medications Ibuprofen (IBUPROFEN) 800 Mg Tablet, 1 TAB PO PRN, TAB 10/07/17 Metformin Hcl (METFORMIN HCL) 1,000 Mg Tablet, 1 TAB PO BID, TAB 04/21/17 Follow up Referrals: Family Practice - In One Week with Lucina Frank Do Diet: Diabetic Activity: As Tolerated Special Instructions: Continue Keflex through October 16. Then stop. Copies to: LUCINA FRANK DO Venous Thromboembolism Antithrombotics Is Pt On Any Antithrombotics?: Yes [id number] Certification Face to Face Home Health Certification Institutional Provider conducted the [id number] encounter. Electronic Undersigning Physician Certifies Home Health. I certify that the patient has been under my care and that I had a [id number] encounter that meets the physician [id number] encounter requirements with this patient. This patient is home-bound due to safety issues and continues to require assistance with ADL's. I certify that based on my findings, that Nursing, Aides and the following Home Health services are medically necessary: PT Medical Necessity: Nursing, Rehab Date Face to Face Conducted: Oct 15, 2017 ABRIL STERLING MD Oct 15, 2017 13:34
== END 2017-10-15 14:08 | disposition home or self-care (01) | DRG 690 ==
LOC: ER 18:49 → MED 20:32
PROVIDERS: ADMIT Internal Medicine; ATTEND Internal Medicine
DX: N30.00 Acute cystitis without hematuria (principal); N17.9 Acute kidney failure, unspecified; E86.0 Dehydration; E11.40 Type 2 diabetes mellitus with diabetic neuropathy, unspecified; R53.1 Weakness; D64.9 Anemia, unspecified; T39.395A Adverse effect of other nonsteroidal anti-inflammatory drugs [NSAID], initial encounter; K29.70 Gastritis, unspecified, without bleeding; R91.1 Solitary pulmonary nodule; B96.1 Klebsiella pneumoniae [K. pneumoniae] as the cause of diseases classified elsewhere; Z87.891 Personal history of nicotine dependence; Z88.2 Allergy status to sulfonamides; Z91.040 Latex allergy status; Z90.710 Acquired absence of both cervix and uterus; Z87.440 Personal history of urinary (tract) infections; Z79.4 Long term (current) use of insulin
CPT/HCPCS: 36415; 36416; 81001; 82040; 82247; 82310; 82374; 82435; 82565; 82668; 82947; 82948; 84075; 84132; 84155; 84295; 84450; 84460; 84520; 85025; 87088; 97162; 97165; 99285; J0696; J1650; J3480; J7030

== ENCOUNTER → 2017-10-12 | Outpatient (CLI) | payer MEDICARE, BC, MEDICAID ==
[~2017-10-12] MED LIST changes: +CEPH250C11 PO; +FAMO-67 PO; +FURO-47 PO; +GABA-488 PO; +IBUP800T37 PO
[2017-10-13 10:09] VITALS: BMI 27.6
== END ==
LOC: AMB 18:11
PROVIDERS: ATTEND Nurse Practitioner
DX: R53.1 Weakness (principal); R60.0 Localized edema
CPT/HCPCS: A0425; A0429

== ENCOUNTER 2017-10-20 13:04 | Emergency (ER) | payer MEDICARE, BC, MEDICAID ==
[2017-10-13 10:09] VITALS: Wt 68.0 kg
--- NOTE | 2017-10-20 13:18 | ER Report ---
History and Physical Time Seen By MD: 13:14 HPI/ROS CHIEF COMPLAINT: Leg swelling HISTORY OF PRESENT ILLNESS: This is a 76-year-old female who presents to the emergency department for leg swelling. The patient was just discharged from the hospital October 12 for weakness secondary to acute kidney failure. Patient was seen by her primary care provider today, was instructed to come to the hospital today for lab studies only, however her daughter who is with her felt that she needed further evaluation therefore she checked into the emergency department. Patient states she is feeling okay at this time. Patient's only complaint is the bilateral lower extremity edema that his increased since being discharged from the hospital she also states that she developed some diarrhea beginning last night, her daughter has diarrhea too. Patient denies nausea or vomiting, no chest pain or shortness breath, no aches or chills, no headaches or rashes. REVIEW OF SYSTEMS: Constitutional: No fever, no chills. Eyes: No discharge. ENT: No sore throat. Cardiovascular: No chest pain, no palpitations. Respiratory: No cough, no shortness of breath. Gastrointestinal: As above. Genitourinary: No hematuria. Musculoskeletal: As above. Skin: No rashes. Neurological: No headache. Allergies: Coded Allergies: Sulfa (Sulfonamide Antibiotics) (Verified Allergy, Intermediate, 10/20/17) latex (Verified Allergy, Mild, 10/20/17) Home Meds Active Scripts Furosemide (FUROSEMIDE) 40 Mg Tablet, 1 TAB PO QDAY for 2 Days, #2 TAB 0 Refills Prov:JOAO BO [employer] PL[employer] SALES UNIT ADVISOR- 10/20/17 Gabapentin (NEURONTIN) 100 Mg Capsule, 300 MG PO DAILY, #90 CAPSULE 1 Refill Take one tablet po q am and 2 tablets po q pm. Prov:ABRIL STERLING MD 10/12/17 Famotidine (FAMOTIDINE) 20 Mg Tablet, 20 MG PO BID, #60 TAB Prov:ABRIL STERLING MD 10/12/17 Cephalexin Monohydrate (CEPHALEXIN) 250 Mg Cap, 250 MG PO TID, #21 CAP Prov:ABRIL STERLING MD 10/12/17 Past Medical/Surgical History Patient has a past medical and surgical history of urinary tract infections, pyonephritis, arthritis, left wrist fracture, wears glasses, diabetes, hysterectomy. Reviewed Nurses Notes: Yes Hx Smoking: Yes (probably smokes once a month) Smoking Status: Current: Some Days Smoker Exposure to Second Hand Smoke?: No Hx Substance Use Disorder: No Hx Alcohol Use: No Constitutional Vital Sign - Last 24 Hours 10/20/17 10/20/17 10/20/17 10/20/17 13:16 13:17 13:30 13:45 Temp 98.2 Pulse 94 88 91 Resp 16 9 19 B/P (MAP) 157/77 (103) 157/77 150/78 (102) Pulse Ox 98 98 95 O2 Delivery Room Air 10/20/17 10/20/17 10/20/17 10/20/17 14:00 14:15 14:30 14:45 Pulse 89 90 90 93 Resp 8 0 0 B/P (MAP) 150/75 (100) Pulse Ox 97 97 95 10/20/17 10/20/17 10/20/17 10/20/17 15:00 15:15 15:30 15:45 Pulse 90 92 90 91 Resp 11 21 17 23 B/P (MAP) 167/96 (119) 160/84 (109) Pulse Ox 97 97 92 96 10/20/17 10/20/17 16:00 16:15 Pulse 91 94 Resp 15 20 B/P (MAP) 156/83 (107) Pulse Ox 96 91 Intake and Output 10/20/17 10/20/17 10/21/17 14:59 22:59 06:59 Intake Total 500 ml Balance 500 ml Physical Exam General Appearance: The patient is alert, has no immediate need for airway protection and no signs of toxicity. Eyes: Pupils equal and round no pallor or injection. ENT, Mouth: Mucous membranes are dry, geographic tongue. TMs intact, pearly allen , landmarks noted. Respiratory: There are no retractions, lungs are clear to auscultation. Cardiovascular: Regular rate and rhythm, no murmurs, clicks or rubs. Gastrointestinal: Abdomen is soft and non tender, no masses, bowel sounds normal. Neurological: Alert and oriented 4. Moving all extremities. Following all commands. No focal neuro deficits. Skin: Warm and dry, no rashes. Musculoskeletal: Neck is supple non tender. Extremities 1-2+ pitting edema in the feet, bilaterally. Lower extremity edema nonpitting from the knee to mid calf. Right greater than left. No rashes. Discomfort to the lower extremity's bilaterally with firm palpation. DIFFERENTIAL DIAGNOSIS: After history and physical exam differential diagnosis was considered for leg swelling including but not limited to hypoalbuminemia, congestive heart failure, cor pulmonale, chronic venous stasis and DVT.abdominal pain in a female including but not limited to ovarian cyst, pelvic inflammatory disease, ovarian torsion, gastroenteritis, enteritis, urinary tract infection, and appendicitis. Medical Decision Making Data Points Result Diagram: 10/20/17 1321 10/20/17 1321 Laboratory Hematology Test 10/20/17 13:21 Red Blood Count 3.19 M/uL (4.17-5.56) Mean Corpuscular Volume 92.6 fL (80.0-96.0) Mean Corpuscular Hemoglobin 31.3 pg (26.0-33.0) Mean Corpuscular Hemoglobin Concent 33.8 g/dL (32.0-36.0) Red Cell Distribution Width 14.4 % (11.5-14.5) Mean Platelet Volume 7.2 fL (7.2-11.1) Neutrophils (%) (Auto) 80.3 % (39.4-72.5) Lymphocytes (%) (Auto) 13.4 % (17.6-49.6) Monocytes (%) (Auto) 3.3 % (4.1-12.4) Eosinophils (%) (Auto) 2.1 % (0.4-6.7) Basophils (%) (Auto) 0.9 % (0.3-1.4) Nucleated RBC Relative Count (auto) 0.0 /100WBC Neutrophils # (Auto) 10.8 K/uL (2.0-7.4) Lymphocytes # (Auto) 1.8 K/uL (1.3-3.6) Monocytes # (Auto) 0.4 K/uL (0.3-1.0) Eosinophils # (Auto) 0.3 K/uL (0.0-0.5) Basophils # (Auto) 0.1 K/uL (0.0-0.1) Nucleated RBC Absolute Count (auto) 0.00 K/uL Sodium Level 143 mmol/L (137-145) Potassium Level 3.8 mmol/L (3.5-5.0) Chloride Level 109 mmol/L (98-107) Carbon Dioxide Level 20 mmol/L (22-31) Blood Urea Nitrogen 29 mg/dl (7-18) Creatinine 3.10 mg/dl (0.52-1.04) Glomerular Filtration Rate Calc 14.7 Random Glucose 108 mg/dl (75-110) Calcium Level 8.6 mg/dl (8.4-10.2) Total Bilirubin 0.4 mg/dl (0.2-1.3) Aspartate Amino Transf (AST/SGOT) 21 U/L (0-35) Alanine Aminotransferase (ALT/SGPT) 20 U/L (0-56) Alkaline Phosphatase 94 U/L (0-126) Total Protein 7.0 gm/dl (6.3-8.2) Albumin 3.2 g/dl (3.5-5.0) Chemistry Test 10/20/17 13:21 White Blood Count 13.4 k/uL (4.5-11.0) Red Blood Count 3.19 M/uL (4.17-5.56) Hemoglobin 10.0 g/dL (12.0-16.0) Hematocrit 29.5 % (34.0-47.0) Mean Corpuscular Volume 92.6 fL (80.0-96.0) Mean Corpuscular Hemoglobin 31.3 pg (26.0-33.0) Mean Corpuscular Hemoglobin Concent 33.8 g/dL (32.0-36.0) Red Cell Distribution Width 14.4 % (11.5-14.5) Platelet Count 313 K/uL (150-450) Mean Platelet Volume 7.2 fL (7.2-11.1) Neutrophils (%) (Auto) 80.3 % (39.4-72.5) Lymphocytes (%) (Auto) 13.4 % (17.6-49.6) Monocytes (%) (Auto) 3.3 % (4.1-12.4) Eosinophils (%) (Auto) 2.1 % (0.4-6.7) Basophils (%) (Auto) 0.9 % (0.3-1.4) Nucleated RBC Relative Count (auto) 0.0 /100WBC Neutrophils # (Auto) 10.8 K/uL (2.0-7.4) Lymphocytes # (Auto) 1.8 K/uL (1.3-3.6) Monocytes # (Auto) 0.4 K/uL (0.3-1.0) Eosinophils # (Auto) 0.3 K/uL (0.0-0.5) Basophils # (Auto) 0.1 K/uL (0.0-0.1) Nucleated RBC Absolute Count (auto) 0.00 K/uL Glomerular Filtration Rate Calc 14.7 Calcium Level 8.6 mg/dl (8.4-10.2) Total Bilirubin 0.4 mg/dl (0.2-1.3) Aspartate Amino Transf (AST/SGOT) 21 U/L (0-35) Alanine Aminotransferase (ALT/SGPT) 20 U/L (0-56) Alkaline Phosphatase 94 U/L (0-126) Total Protein 7.0 gm/dl (6.3-8.2) Albumin 3.2 g/dl (3.5-5.0) ED Course/Re-evaluation Clinical Indication for ER IV: Hydration, IV Access ED Course The patient was admitted to room. A history physical were obtained. Differential diagnoses were considered. An IV was started. A CBC, CMP and hemoglobin A1c were ordered, the A1c was ordered. Slight elevation in the wbc's , patient remains anemic hemoglobin 10 hematocrit 29.5, the elevation in the wbc 's is probably secondary to her acute diarrhea. The anemia is consistent with patient has had in the previous lab studies. BUN 29 creatinine 3.1, this is comparable to what the patient has had in the past however there is a slight increase in the creatinine which could be secondary to diarrhea, as well as the medications she is currently taking. I did give him 500 mL normal saline over a couple of hours, patient was also given a 40 mg IV Lasix dose will be started on Lasix once a day for the next 2 days, repeat labs CBC, CMP labs to go to Dr. Frank on Sunday. Also instructed the patient and the daughter to increase the dietary protein considered boost or ensure shakes as her overall albumin was low. My hope is that the patient will have a decrease in lower extremity edema. I also instructed the patient to stop her famotidine masses can be kashif to her acute renal failure as well as the other medications however I think continuing her Keflex and gabapentin until she follows up with her primary care provider. Patient will also follow-up with a center aisle cashier and us marketing director for her anemia. Patient states she is feeling better today after fluids and the Lasix. Patient continues to deny aches, chills, chest pain or shortness of breath. Decision to Disposition Date: Oct 20, 2017 Decision to Disposition Time: 16:08 Depart Departure Latest Vital Signs Vital Signs Date Time Temp Pulse Resp B/P (MAP) Pulse Ox O2 Delivery O2 Flow Rate FiO2 10/20/17 16:15 94 20 91 10/20/17 16:00 156/83 (107) 10/20/17 13:17 98.2 Room Air Impression: Primary Impression: Swelling of lower extremity Additional Impression: Acute renal failure Condition: Improved Disposition: HOME OR SELF-CARE Referrals: GIAN FRANK DO (PCP) New Scripts Furosemide (FUROSEMIDE) 40 Mg Tablet 1 TAB PO QDAY for 2 Days, #2 TAB 0 Refills Prov: JOAO BO 10/20/17 Patient Instructions: Leg Edema (ED), Renal Failure Diet (GEN) Additional Instructions: Drink plenty of water. Get plenty of rest. STOP taking the famotidine (stomach medication). Be sure to increase your dietary protein, try ensure shakes 1-2 times a day. Take the Lasix tomorrow and Sunday. Follow up labs on Sunday. Follow up with Dr. Frank Sunday. If having increased swelling, shortness of breath or if you have any other concerns return to the the ED. MD Consult Note: Dr. Muir Problem Qualifiers Additional Impression: Acute renal failure Acute renal failure type: unspecified Qualified Codes: N17.9 - Acute kidney failure, unspecified JOAO BO Oct 20, 2017 13:18
[2017-10-20 13:40] LABS: PLATELET COUNT, AUTOMATED 313 K/uL (150-450)
[2017-10-20] MEDS ORDERED: NS(*) 0.9% 500 ML BAG 500 ML IV SCH (13:55)
[2017-10-20] MEDS ORDERED: FUROSEMIDE 40 MG/4 ML VIAL IVP ONE (14:45)
[2017-10-20] MEDS ORDERED: FURO-47 PO (14:51)
[2017-10-20 16:00] VITALS: BP 156/83
== END 2017-10-20 16:33 | disposition home or self-care (01) ==
LOC: ER 13:25
DX: R60.0 Localized edema (principal); N17.9 Acute kidney failure, unspecified; E11.9 Type 2 diabetes mellitus without complications
CPT/HCPCS: 83036; 85025; 96361; 96374; 99283; J1940; J7040; 82040; 82247; 82310; 82374; 82435; 82565; 82947; 84075; 84132; 84155; 84295; 84450; 84460; 84520

== ENCOUNTER → 2017-11-09 | Outpatient (CLI) | payer MEDICARE, BC ==
[~2017-11-09] MED LIST changes: +FURO-47 PO
[2017-11-09 08:38] LABS: PLATELET COUNT, AUTOMATED 208 K/uL (150-450)
== END ==
LOC: MERGE 08:14 → LAB 08:14
PROVIDERS: ATTEND Nurse Practitioner Family
DX: D50.9 Iron deficiency anemia, unspecified (principal); N17.9 Acute kidney failure, unspecified; E11.618 Type 2 diabetes mellitus with other diabetic arthropathy
CPT/HCPCS: 36415; 82040; 82247; 82310; 82374; 82435; 82565; 82784; 82947; 83516; 83540; 83550; 84075; 84132; 84155; 84295; 84450; 84460; 84520; 85025

== ENCOUNTER 2017-12-07 17:49 | Inpatient (IN) | payer MEDICARE, BC ==
[~2017-12-07] VITALS: Ht 162.6 cm; Wt 60.8 kg
[~2017-12-07 17:49] MED LIST changes: -CYPR4TAB32 PO; +CYPR4TAB5 PO
--- NOTE | 2017-12-07 18:05 | ER Report ---
History and Physical Time Seen By MD: 18:05 Hx. of Stated Complaint: N/V FOR "SEVERAL WEEKS" HPI/ROS CHIEF COMPLAINT: nausea and vomiting HISTORY OF PRESENT ILLNESS: This is a 76 year old female. She came to the ER today with her daughter because of about a week or more of nausea and vomiting. Last emesis was yesterday. Nauseated all day. Having some bowel problems and anemia. Had been scheduled for a colonoscopy earlier this week, but cancelled because she was not feeling well. No fevers or chills. Very weak. No abdominal pain. No further diarrhea. No dysuria, frequency or urgency. She has had symptomatic as well as non-symptomatic urinary tract infections in the past. REVIEW OF SYSTEMS: Constitutional: No fever or chills. ENT: No sore throat. No congestion. Cardiovascular: No chest pain. No palpitations. Respiratory: No cough. No shortness of breath. Gastrointestinal: as above. Genitourinary: as above. Musculoskeletal: No back pain. No extremity pain. Skin: No rashes. Neurological: No numbness. No headache. Allergies: Coded Allergies: Sulfa (Sulfonamide Antibiotics) (Verified Allergy, Intermediate, 10/20/17) latex (Verified Allergy, Mild, 10/20/17) Home Meds Discontinued Scripts Furosemide (FUROSEMIDE) 40 Mg Tablet, 1 TAB PO QDAY for 2 Days, #2 TAB 0 Refills Prov:JOAO BO COAL PULVERIZER OPERATOR- 10/20/17 Gabapentin (NEURONTIN) 100 Mg Capsule, 300 MG PO DAILY, #90 CAPSULE 1 Refill Take one tablet po q am and 2 tablets po q pm. Prov:ABRIL STERLING MD 10/12/17 Famotidine (FAMOTIDINE) 20 Mg Tablet, 20 MG PO BID, #60 TAB Prov:ABRIL STERLING MD 10/12/17 Cephalexin Monohydrate (CEPHALEXIN) 250 Mg Cap, 250 MG PO TID, #21 CAP Prov:ABRIL STERLING MD 10/12/17 Past Medical/Surgical History Frequent UTIs, arthritis, diabetes but not on medication, hysterectomy Reviewed Nurses Notes: Yes Hx Smoking: Yes (probably smokes once a month) Smoking Status: Former Smoker, Current: Some Days Smoker Exposure to Second Hand Smoke?: No Hx Substance Use Disorder: No Hx Alcohol Use: No Constitutional Vital Sign - Last 24 Hours 7/27/18 7/27/18 7/27/18 7/27/18 17:56 18:00 18:30 18:35 Temp 98.5 Pulse 92 91 89 86 Resp 18 B/P (MAP) 140/83 129/76 (93) 140/71 (94) Pulse Ox 97 97 95 96 O2 Delivery Room Air 12/07/17 12/07/17 12/07/17 12/07/17 18:50 19:00 19:05 19:20 Pulse 85 85 82 B/P (MAP) 148/77 (100) Pulse Ox 96 99 96 Intake and Output 12/07/17 12/07/17 12/08/17 15:00 23:00 07:00 Intake Total 1000 ml Output Total 30 ml Balance 970 ml Physical Exam General Appearance: The patient is alert. No acute distress. Eyes: Pupils are equal, round. Reactive to light. No pallor, injection or icterus. Extraocular movements are intact. ENT: Mucous membranes are a little dry. Normal oral mucosa. Posterior oropharynx is normal. Neck: Supple and non tender. Respiratory: Lungs are clear to auscultation. Cardiovascular: Regular rate and rhythm. No murmurs, gallops or rubs. Normal capillary refill. No edema. Gastrointestinal: Abdomen is soft and non tender. Nondistended. Normal active bowel sounds. Neurological: Alert and oriented x3. No focal neurologic deficits Skin: Warm and dry. Musculoskeletal: Extremities are nontender. No pain in palpation of the back. DIFFERENTIAL DIAGNOSIS: After history and physical exam, differential diagnosis was considered for weakness, nausea and vomiting, with her history of frequent urinary tract infections this would be the most likely cause but will for other metabolic causes as well. Medical Decision Making Data Points Result Diagram: 12/07/178 12/07/17 1808 Laboratory Hematology Test 12/07/17 18:08 12/07/17 18:14 Red Blood Count 3.03 M/uL (4.17-5.56) Mean Corpuscular Volume 92.4 fL (80.0-96.0) Mean Corpuscular Hemoglobin 32.2 pg (26.0-33.0) Mean Corpuscular Hemoglobin Concent 34.8 g/dL (32.0-36.0) Red Cell Distribution Width 14.0 % (11.5-14.5) Mean Platelet Volume 8.9 fL (7.2-11.1) Neutrophils (%) (Auto) 70.1 % (39.4-72.5) Lymphocytes (%) (Auto) 21.2 % (17.6-49.6) Monocytes (%) (Auto) 5.2 % (4.1-12.4) Eosinophils (%) (Auto) 2.4 % (0.4-6.7) Basophils (%) (Auto) 1.1 % (0.3-1.4) Nucleated RBC Relative Count (auto) 0.0 /100WBC Neutrophils # (Auto) 5.5 K/uL (2.0-7.4) Lymphocytes # (Auto) 1.7 K/uL (1.3-3.6) Monocytes # (Auto) 0.4 K/uL (0.3-1.0) Eosinophils # (Auto) 0.2 K/uL (0.0-0.5) Basophils # (Auto) 0.1 K/uL (0.0-0.1) Nucleated RBC Absolute Count (auto) 0.00 K/uL Sodium Level 135 mmol/L (137-145) Potassium Level 3.9 mmol/L (3.5-5.0) Chloride Level 106 mmol/L (98-107) Carbon Dioxide Level 15 mmol/L (22-31) Blood Urea Nitrogen 66 mg/dl (7-18) Creatinine 5.50 mg/dl (0.52-1.04) Glomerular Filtration Rate Calc 7.6 Random Glucose 172 mg/dl (75-110) Calcium Level 8.4 mg/dl (8.4-10.2) Total Bilirubin 0.5 mg/dl (0.2-1.3) Aspartate Amino Transf (AST/SGOT) 16 U/L (0-35) Alanine Aminotransferase (ALT/SGPT) 11 U/L (0-56) Alkaline Phosphatase 81 U/L (0-126) Total Protein 6.9 g/dl (6.3-8.2) Albumin 3.6 g/dl (3.5-5.0) Amylase Level 88 U/L (0-110) Lipase 452 U/L (23-300) Urine Color Other Urine Clarity Turbid Urine pH 5.0 pH (4.8-9.5) Urine Specific [place] 1.011 Urine Protein 100 mg/dL (NEGATIVE) Urine Glucose (UA) Negative mg/dL (NEGATIVE) Urine Ketones Negative mg/dL (NEGATIVE) Urine Blood Large (NEGATIVE) Urine Nitrite Negative (NEGATIVE) Urine Bilirubin Negative (NEGATIVE) Urine Urobilinogen Negative mg/dL (0.2-1.9) Urine Leukocyte Esterase Moderate (NEGATIVE) Urine RBC 993 /HPF (0-2/HPF) Urine WBC 69239 /HPF (0-5/HPF) Urine WBC Clumps Many /HPF Urine Squamous Epithelial Cells None /LPF (NONE-FEW) Urine Bacteria Many /HPF (NONE-FEW) Urine Mucus None /HPF (NONE-FEW) Chemistry Test 12/07/17 18:08 12/07/17 18:14 White Blood Count 7.9 k/uL (4.5-11.0) Red Blood Count 3.03 M/uL (4.17-5.56) Hemoglobin 9.8 g/dL (12.0-16.0) Hematocrit 28.0 % (34.0-47.0) Mean Corpuscular Volume 92.4 fL (80.0-96.0) Mean Corpuscular Hemoglobin 32.2 pg (26.0-33.0) Mean Corpuscular Hemoglobin Concent 34.8 g/dL (32.0-36.0) Red Cell Distribution Width 14.0 % (11.5-14.5) Platelet Count 217 K/uL (150-450) Mean Platelet Volume 8.9 fL (7.2-11.1) Neutrophils (%) (Auto) 70.1 % (39.4-72.5) Lymphocytes (%) (Auto) 21.2 % (17.6-49.6) Monocytes (%) (Auto) 5.2 % (4.1-12.4) Eosinophils (%) (Auto) 2.4 % (0.4-6.7) Basophils (%) (Auto) 1.1 % (0.3-1.4) Nucleated RBC Relative Count (auto) 0.0 /100WBC Neutrophils # (Auto) 5.5 K/uL (2.0-7.4) Lymphocytes # (Auto) 1.7 K/uL (1.3-3.6) Monocytes # (Auto) 0.4 K/uL (0.3-1.0) Eosinophils # (Auto) 0.2 K/uL (0.0-0.5) Basophils # (Auto) 0.1 K/uL (0.0-0.1) Nucleated RBC Absolute Count (auto) 0.00 K/uL Glomerular Filtration Rate Calc 7.6 Calcium Level 8.4 mg/dl (8.4-10.2) Total Bilirubin 0.5 mg/dl (0.2-1.3) Aspartate Amino Transf (AST/SGOT) 16 U/L (0-35) Alanine Aminotransferase (ALT/SGPT) 11 U/L (0-56) Alkaline Phosphatase 81 U/L (0-126) Total Protein 6.9 g/dl (6.3-8.2) Albumin 3.6 g/dl (3.5-5.0) Amylase Level 88 U/L (0-110) Lipase 452 U/L (23-300) Urine Color Other Urine Clarity Turbid Urine pH 5.0 pH (4.8-9.5) Urine Specific [place] 1.011 Urine Protein 100 mg/dL (NEGATIVE) Urine Glucose (UA) Negative mg/dL (NEGATIVE) Urine Ketones Negative mg/dL (NEGATIVE) Urine Blood Large (NEGATIVE) Urine Nitrite Negative (NEGATIVE) Urine Bilirubin Negative (NEGATIVE) Urine Urobilinogen Negative mg/dL (0.2-1.9) Urine Leukocyte Esterase Moderate (NEGATIVE) Urine RBC 993 /HPF (0-2/HPF) Urine WBC 70906 /HPF (0-5/HPF) Urine WBC Clumps Many /HPF Urine Squamous Epithelial Cells None /LPF (NONE-FEW) Urine Bacteria Many /HPF (NONE-FEW) Urine Mucus None /HPF (NONE-FEW) Urinalysis Test 12/07/17 18:14 Urine Color Other Urine Clarity Turbid Urine pH 5.0 pH (4.8-9.5) Urine Specific [place] 1.011 Urine Protein 100 mg/dL (NEGATIVE) Urine Glucose (UA) Negative mg/dL (NEGATIVE) Urine Ketones Negative mg/dL (NEGATIVE) Urine Blood Large (NEGATIVE) Urine Nitrite Negative (NEGATIVE) Urine Bilirubin Negative (NEGATIVE) Urine Urobilinogen Negative mg/dL (0.2-1.9) Urine Leukocyte Esterase Moderate (NEGATIVE) Urine RBC 993 /HPF (0-2/HPF) Urine WBC 74683 /HPF (0-5/HPF) Urine WBC Clumps Many /HPF Urine Squamous Epithelial Cells None /LPF (NONE-FEW) Urine Bacteria Many /HPF (NONE-FEW) Urine Mucus None /HPF (NONE-FEW) ED Course/Re-evaluation Clinical Indication for ER IV: Hydration, IV Access ED Course IV started, labs obtained. Catheter urine specimen obtained. Urinalysis shows significant bacteria, white cells, and red cells on the microscopic consistent with urinary tract infection. Metabolic panel came back showing a mild hyponatremia as well as worsening of her chronic kidney disease with a creatinine of 5.5. White count is normal. I discussed the case with our hospitalist, Dr. Sy, who came and saw the patient in the ER and will be admitting her to the floor. Started Rocephin here in the ER based on her last positive urine culture which was positive for Klebsiella. Decision to Disposition Date: Dec 07, 2017 Decision to Disposition Time: 19:20 Depart Departure Latest Vital Signs Vital Signs Date Time Temp Pulse Resp B/P (MAP) Pulse Ox O2 Delivery O2 Flow Rate FiO2 12/07/17 19:20 82 96 12/07/17 19:00 148/77 (100) 12/07/17 17:56 98.5 18 Room Air Impression: Primary Impression: Urinary tract infection Additional Impressions: Acute renal failure Hyponatremia Condition: Condition Unchanged Disposition: Admitted from ER Referrals: GIAN KELLER DO (PCP) New Scripts No Active Prescriptions or Reported Meds Problem Qualifiers Primary Impression: Urinary tract infection Urinary tract infection type: acute cystitis Hematuria presence: without hematuria Qualified Codes: N30.00 - Acute cystitis without hematuria Additional Impressions: Acute renal failure Acute renal failure type: unspecified Qualified Codes: N17.9 - Acute kidney failure, unspecified YADIRA RIGGS MD Dec 07, 2017 18:05
[2017-12-07] MEDS ORDERED: ONDANSETRON 4 MG/2 ML VIAL IVP ONE (18:25)
[2017-12-07] MEDS ORDERED: NS(*) 0.9% 1000 ML BAG 1,000 ML IV ONE (18:25)
[2017-12-07 18:54] LABS: PLATELET COUNT, AUTOMATED 217 K/uL (150-450)
[2017-12-07] MEDS ORDERED: cefTRIAXone(*) 1 GM VIAL 1 GM in NS(*) 0.9% 100 ML ADDVANT BAG 100 ML IVPB ONE (19:20)
[2017-12-07 20:29] VITALS: Ht 162.6 cm; Wt 60.8 kg
[2017-12-07 20:30] VITALS: BP 148/93
[2017-12-07] MEDS ORDERED: FLUSH 10 ML SYR IVP PRN (20:30)
[2017-12-07] MEDS ORDERED: ACETAMINOPHEN 325 MG TAB PO PRN (20:30)
[2017-12-07] MEDS ORDERED: ONDANSETRON 4 MG/2 ML VIAL IVP PRN (20:30)
[2017-12-07] MEDS ORDERED: INFLUENZA VIRUS VAC 0.5 ML SYR IM ONLY ONE (20:30)
[2017-12-07] MEDS: SODIUM BICAR 8.4%* 50 MEQ/50ML 150 MEQ in D5W(*) 1000 ML BAG 1,000 ML IV SCH (21:28)
--- NOTE | 2017-12-07 21:39 | History & Physical ---
History of Present Illness Chief Complaint Nausea, fatigue History of Present Illness 76F with PMHx of CKD stage 4 b/l Cr 3.4 presented to ER with approximately one week increased fatigue and nausea. Reports one week feeling unwell with decreased intake and was to have colonoscopy 07.23, unable to tolerate bowel prep was sent home 2/2 feeling unwell, did not seek further medical attention at that time. Feeling worse and daughter brought her to hospital. In ER lab revealed Cr 5.5, reports adequate urine output, denies fever, reports chills. Hx UTI frequently and usually no symptoms per daughter. 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 Denies rest room matron, previously used heavy NSAID but has since last admission in September stopped. History Problems: (1) CKD (chronic kidney disease) stage 4, GFR 15-29 ml/min Status: Chronic (2) Type 2 diabetes mellitus Status: Chronic Home Meds Discontinued Scripts Furosemide (FUROSEMIDE) 40 Mg Tablet, 1 TAB PO QDAY for 2 Days, #2 TAB 0 Refills Prov:[employer]- 10/20/17 Gabapentin (NEURONTIN) 100 Mg Capsule, 300 MG PO DAILY, #90 CAPSULE 1 Refill Take one tablet po q am and 2 tablets po q pm. Prov:ABRIL STERLING MD 10/12/17 Famotidine (FAMOTIDINE) 20 Mg Tablet, 20 MG PO BID, #60 TAB Prov:ABRIL STERLING MD 10/12/17 Cephalexin Monohydrate (CEPHALEXIN) 250 Mg Cap, 250 MG PO TID, #21 CAP Prov:ABRIL STERLING MD 10/12/17 Allergies: Coded Allergies: Sulfa (Sulfonamide Antibiotics) (Verified Allergy, Intermediate, 10/20/17) latex (Verified Allergy, Mild, 10/20/17) Patient History: Patient reports no known family medical history. Hx Smoking: Yes (probably smokes once a month) Smoking Status: Former Smoker, Current: Some Days Smoker Exposure to Second Hand Smoke?: No Caffeine Intake: Coffee Caffeine/Cups Per Day: Daily Hx Alcohol Use: No (very rarely) Hx Substance Use Disorder: No Social Drug Use: Never Review of Systems All Systems Reviewed/Normal: Yes, Except as Noted Constitutional: Chills, No Fever Neurological: Weakness Gastrointestinal: Nausea, No Hematemesis, No Hematochezia, No Melena Genitourinary: No Dysuria, No Urinary Incontinence Exam Vital Signs Vital Signs Date Time Temp Pulse Resp B/P (MAP) Pulse Ox O2 Delivery O2 Flow Rate FiO2 12/07/17 20:15 85 97 12/07/17 20:00 146/76 (99) 12/07/17 17:56 98.5 18 Room Air General Appearance: Alert, Awake, No Acute Distress Neuro: No Gross deficits Eyes: PERRLA ENT: Other (dry mucous membranes) Neck: No Masses Cardiovascular: Normal Rhythm & Peripheral Pulses Respiratory: No Respiratory Distress, Clear to Auscultation Chest: No Masses, No Tenderness GI: Abd Soft and Non-Tender : No CVA Tenderness Lymph: Cervical Nodes Benign Musculoskeletal: No Weakness/Pain Extremities: Soft and Non Tender, Warm, Pulses, No Edema Integumentary: Skin Intact without Lesion / Mass Psych: Alert & Oriented X3, Appropriate Mood & Affect Medical Decision Making Data Points Result Diagram: 12/07/17180712/07/171807 Pre-Admit Course Medical Record Review: Yes Assessment and Plan Problems: (1) Arunc-om-xeycfeu kidney injury Assessment & Plan: CKD stage 4 with Cr b/l 3.4. Cr 5.5 on admission, reports urine output. normal renal US. BP has been mildly hypertensive, but from exam appears dry. Ordered SPEP and kappa/lambda, CPK, urine Cr, protein and Na. Will hydrate with NaHCO3 in D5, strict I/O, avoid NSAID, contrast, gadolinium. Family report no definitive etiology but they believe it is related to DM though A1c last admission 5.5, likely 2/2 chronic high dose NSAID use. Would benefit from nephrology follow up as outpatient. (2) Urinary tract infection Status: Acute Assessment & Plan: Empiric ceftriaxone, urine Cx pending. Hx of recurrent UTI. At this time appears to be simple cystitis unlikely pyelonephritis. (3) Fatigue Assessment & Plan: Possibly 2/2 UTI vs uremia. Will consult PT/OT and monitor for improvement with renal function and Abx. (4) Anemia Status: Chronic Assessment & Plan: Likely 2/2 advanced renal disease. Some element of iron deficiency on labs from last admission. FOBT was negative at that time. Given anemia and renal disease will complete work up with SPEP and kappa/lambda to evaluate for myeloma. (5) Type 2 diabetes mellitus Status: Chronic Assessment & Plan: Reports on metformin at home, hold and SSI and accuchecks while inpatient. Venous Thromboembolism Antithrombotics Is Pt On Any Antithrombotics?: No Exam Sepsis Risk: No Definite Risk OCHOA RUBA FINK DO Dec 07, 2017 21:39
[2017-12-08 04:12] VITALS: BP 156/85
[2017-12-08 06:26] LABS: PLATELET COUNT, AUTOMATED 188 K/uL (150-450)
[2017-12-08 08:02] VITALS: BP 166/77
[2017-12-08] MEDS: INSULIN HUM LISPRO 100 UN/ML 3 ML VIAL SUBQ PRN ×2 (08:48→12:33)
[2017-12-08] MEDS: SODIUM BICAR 8.4%* 50 MEQ/50ML 150 MEQ in D5W(*) 1000 ML BAG 1,000 ML IV SCH (10:34)
[2017-12-08 11:15] VITALS: BP 140/93
--- NOTE | 2017-12-08 11:59 | Medical Nutrition Therapy ---
Nutrition Anthropometrics Height (Inches): 64.00 Height (Calculated Centimeters: 162.418654 Weight (Pounds): 134 Weight (Calculated Kilograms): 60.895 Todd Nutrition Score: Adequate Todd Nutrition Risk Score: 20 Dietary Referral Nutrition Risk Factors: Recent Nutrition Impact Nutrition Risk Comment: n/v x a mo Physical Findings Physical Appearance: WNL Skin Appearance Skin Appearance: Edema Edema Location Modifier: Edema Location: Type of Edema: Degree of Edema: Gastrointestinal Symptoms GI Symtoms: Nausea Tube Present: Bowel Sounds: Recent Bowel Pattern: Stool Characteristics: Nutrition/Food History No Significant Nutr. HX Good Nutritional Diagnosis Nutritional Risk Acuity 1: Acute/ES Renal Nutritional Risk Acuity 4: Good Appetite Past Medical History: Type 2 diabetes mellitus, Wrist fracture, hysterectomy, Recurrent UTI Nutritional Acuity: 1-High Nutrition Diagnosis: Decreased Nutrient Needs Nutrition Etiology: Physiological Causes Nutrition Problem/Etiology/Sym: Decreased Nutrient Needs (potassium, sodium) related to renal dysfunction AEB high Creat, diagnosis of ARF. Energy Requirement: 1640 (Houck-St Jeor: Actual BW X 1.5) Protein Requirement: 61 (Actual BW Kg X 1.0) Diet Type: Diet as Tolerated CALVIN/REG, Low Potassium (Low K) Nutrition Monitoring & Eval Nutrition Goals: Eat 75-100% Meal RD Patient Assessment Time: [address] Assessment Type: RD Assessment Patient Nutrition Acuity: 1-High Follow Up Date: Dec 11, 2017 Nutritional Comment: 12/08 Pt admitted for Crcqe-dl-dwsxwis kidney injury and UTI. Weight WNR with BMI of 23.0. Low H/H, Phos 4.5, Glu 185, Creat 4.90. Lispro SSI. Receiving CALVIN with low K+ and consuming 100% of meals. Follow clinical progression, labs, etc. -PRINCESS ALANIZ Dec 08, 2017 11:59
--- NOTE | 2017-12-08 12:01 | Hospitalist Progress Note ---
Subjective Progress Notes Subjective This patient was admitted for renal failure. She had no acute changes overnight. Patient Complains of: Cardiovascular: No: Chest Pain Respiratory: No: Shortness of Breath Physical Exam Vital Signs Date Time Temp Pulse Resp B/P (MAP) Pulse Ox O2 Delivery O2 Flow Rate FiO2 12/08/17 11:15 98.6 90 16 140/93 (109) 97 Room Air Intake and Output 12/09/17 07:00 Intake Total 0 ml Output Total 300 ml Balance -300 ml Intake Oral 0 ml Output Urine Total 300 ml # Voids 2 Cardiovascular: Regular Rate and Rhythm Respiratory: Clear to Auscultation Result Diagram: 12/08/17 0600 12/08/17 0600 Assessment and Plan Problems: (1) Ijnfj-fq-gzvdrxf kidney injury Assessment & Plan: She did present with nausea and vomiting, which is believed to be secondary to uropathy. She was placed on a bicarbonate infusion overnight. Her renal function is improving today. SPEP and kappa/lambda are pending. She was taking high doses of NSAIDS over the last several years, which may be a contributing factor. (2) Urinary tract infection Status: Acute Assessment & Plan: She is on empiric treatment with ceftriaxone. A urine culture was not done at admission. We will convert her to oral Keflex. (3) Fatigue Assessment & Plan: Therapy consults have been requested. (4) Anemia Status: Chronic Assessment & Plan: Likely 2/2 advanced renal disease. Some element of iron deficiency on labs from last admission. FOBT was negative at that time. Given anemia and renal disease will complete work up with SPEP and kappa/lambda to evaluate for myeloma. (5) Type 2 diabetes mellitus Status: Chronic Assessment & Plan: She is on chronic treatment with metformin, which has been discontinued. She is on sliding scale level #1. Exam Sepsis Risk: No Definite Risk AMIE ROMAN DO Dec 08, 2017 12:01
[2017-12-08 14:58] VITALS: BP 155/81
[2017-12-08] MEDS ORDERED: cefTRIAXone 1 GM VIAL IVP SCH (17:00)
[2017-12-08] MEDS: CEPHALEXIN MONO 250 MG CAP PO SCH (17:30)
[2017-12-08 19:56] VITALS: BP 161/82
[2017-12-09 04:17] VITALS: BP 154/86
[2017-12-09 07:27] VITALS: BP 158/79
[2017-12-09] MEDS: NS(*) 0.9% 1000 ML BAG 1,000 ML IV PRN (10:04)
--- NOTE | 2017-12-09 10:46 | Hospitalist Progress Note ---
Subjective Progress Notes Subjective The patient states she feels a bit better today. She had gone to [facility] to have a colonoscopy, but did not have it done because she was too ill. She needs to reschedule. Physical Exam Vital Signs Date Time Temp Pulse Resp B/P (MAP) Pulse Ox O2 Delivery O2 Flow Rate FiO2 12/09/17 07:27 98.9 80 16 158/79 (105) 95 Room Air General Appearance: Alert, Awake, No Acute Distress Respiratory: Clear to Auscultation GI: Soft and Non-Tender Extremities: Warm, Perfused Result Diagram: 12/08/17 0600 12/09/17 0528 Assessment and Plan Problems: (1) Xcpoj-xq-hwyabpb kidney injury Assessment & Plan: She did present with nausea and vomiting, which is believed to be secondary to uropathy. She was placed on a bicarbonate infusion overnight. She was also noted to have a UTI and is receiving antibiotics. No culture was obtained. Her renal function improved. SPEP and kappa/lambda are pending. She was taking high doses of NSAIDS over the last several years, which may be a contributing factor. She has poor oral intake and will be restarted on NS at 75ml/hr today. (2) Urinary tract infection Status: Acute Assessment & Plan: She was on empiric treatment with ceftriaxone and is now on Keflex. A urine culture was not done at admission. WBC is improved and her renal function is slowly improving. (3) Fatigue Assessment & Plan: Therapy consults have been requested. (4) Anemia Status: Chronic Assessment & Plan: Likely 2/2 advanced renal disease. Some element of iron deficiency on labs from last admission. FOBT was negative at that time. Given anemia and renal disease will complete work up with SPEP and kappa/lambda to evaluate for myeloma. The patient was scheduled to have a colonoscopy recently and was too ill to have it done likely due to current illness. Will need to reschedule when able. She has not have routine colon CA screening. (5) Type 2 diabetes mellitus Status: Chronic Assessment & Plan: She is on chronic treatment with metformin, which has been discontinued. She is on sliding scale level #1. Time Spent on Plan of Care: < 30 min Exam Sepsis Risk: No Definite Risk ABRIL STERLING MD Dec 09, 2017 10:46
[2017-12-09 12:05] VITALS: BP 164/100
[2017-12-09 14:44] VITALS: BP 158/88
[2017-12-09 15:27] VITALS: BP 155/85
[2017-12-09] MEDS: CEPHALEXIN MONO 250 MG CAP PO SCH (17:52)
[2017-12-09 19:42] VITALS: BP 164/84
[2017-12-10] MEDS: NS(*) 0.9% 1000 ML BAG 1,000 ML IV PRN ×2 (00:44→14:07)
[2017-12-10 05:52] VITALS: BP 156/81
[2017-12-10 06:03] LABS: PLATELET COUNT, AUTOMATED 174 K/uL (150-450)
[2017-12-10 08:58] VITALS: BP 156/98
--- NOTE | 2017-12-10 10:41 | Hospitalist Progress Note ---
Subjective Progress Notes Subjective This patient was admitted for acute renal failure. She had no acute issues overnight. Patient Complains of: Cardiovascular: No: Chest Pain Respiratory: No: Shortness of Breath Physical Exam Vital Signs Date Time Temp Pulse Resp B/P (MAP) Pulse Ox O2 Delivery O2 Flow Rate FiO2 12/10/17 08:58 98.0 79 20 156/98 (117) 99 Room Air Intake and Output 12/11/17 07:00 # Voids 100 Cardiovascular: Regular Rate and Rhythm Respiratory: Clear to Auscultation Result Diagram: 12/10/17 0546 12/10/1746 Assessment and Plan Problems: (1) Swomo-kd-lnniofs kidney injury Assessment & Plan: She did present with nausea and vomiting, which is believed to be secondary to uropathy. She was placed on a bicarbonate infusion initially and is now on a saline infusion . Her renal function has been improving. SPEP and kappa/lambda are pending. She was taking high doses of NSAIDS over the last several years, which may be a contributing factor. (2) Urinary tract infection Status: Acute Assessment & Plan: She was on empiric treatment with ceftriaxone and then converted to oral Keflex. A urine culture was not done at admission. We have stopped antibiotics today. (3) Fatigue Assessment & Plan: Therapy consults have been requested. (4) Anemia Status: Chronic Assessment & Plan: Likely 2/2 advanced renal disease. FOBT was negative at that time. Given anemia and renal disease will complete work up with SPEP and kappa/lambda to evaluate for myeloma. The patient was scheduled to have a colonoscopy recently and was too ill to have it done likely due to current illness. An erythropoietin level is ordered for the morning. (5) Type 2 diabetes mellitus Status: Chronic Assessment & Plan: She is on chronic treatment with metformin, which has been discontinued. She is on sliding scale level #1. Exam Sepsis Risk: No Definite Risk AMIE ROMAN DO Dec 10, 2017 10:41
[2017-12-10 15:33] VITALS: BP 168/76
[2017-12-10 18:43] VITALS: BP 179/80
[2017-12-10] MEDS: INSULIN HUM LISPRO 100 UN/ML 3 ML VIAL SUBQ PRN (21:51)
[2017-12-11] MEDS: NS(*) 0.9% 1000 ML BAG 1,000 ML IV PRN (03:22)
[2017-12-11 06:21] LABS: PLATELET COUNT, AUTOMATED 164 K/uL (150-450)
[2017-12-11 07:39] VITALS: BP 167/82
[2017-12-11] MEDS ORDERED: amLODIPine BESYL(*) 5 MG TAB PO SCH (09:00)
[2017-12-11 11:20] VITALS: BP 161/90
--- NOTE | 2017-12-11 11:59 | Hospitalist Progress Note ---
Subjective Progress Notes Subjective 76F admitted for BRIDGET on CKD. This am Cr is improved, pt remains weak up to chair first time this am, not liking diet. Patient Complains of: Neurological: Weakness, No: Syncope, Confusion Cardiovascular: No: Chest Pain, Palpitations Respiratory: No: Cough, Congestion Gastrointestinal: No Nausea, No Vomiting Genitourinary: No Dysuria, No Hematuria Musculoskeletal: No: Pain, Sprain, Strain Physical Exam Vital Signs Date Time Temp Pulse Resp B/P (MAP) Pulse Ox O2 Delivery O2 Flow Rate FiO2 12/11/17 11:20 98.4 84 20 161/90 (113) 97 Room Air Intake and Output 12/12/17 07:00 Intake Total 400 ml Balance 400 ml Intake Oral 0 ml IV Total 400 ml # Voids 1 General Appearance: Alert, Awake, No Acute Distress Neuro: No Gross deficits Eyes: PERRLA ENT: Normal Neck: No Masses Cardiovascular: Normal Rhythm & Peripheral Pulses Respiratory: No Respiratory Distress Chest: No Masses GI: Soft and Non-Tender Lymph: No Adenopathy Musculoskeletal: No Weakness/Pain Extremities: Soft and Non Tender, Warm, Pulses Integumentary: Skin Intact without Lesion / Mass Psych: Alert & Oriented X3 Result Diagram: 12/11/17 0604 12/11/17 0604 Assessment and Plan Problems: (1) Jjprq-bg-ygegxiy kidney injury Assessment & Plan: She did present with nausea and vomiting, which is believed to be secondary to uropathy. She was placed on a bicarbonate infusion initially and is now on a saline infusion . Her renal function has been improving. SPEP and kappa/lambda are negative for myeloma. She was taking high doses of NSAIDS over the last several years, which may be a contributing factor. (2) Urinary tract infection Status: Acute Assessment & Plan: She was on empiric treatment with ceftriaxone and then converted to oral Keflex. A urine culture was not done at admission. Off Abx at this time. (3) Hypertension Assessment & Plan: BP elevated, given CKD will start Rx to decrease and protect renal function. 5mg amlodipine started. (4) Fatigue Assessment & Plan: Therapy consults have been requested. (5) Anemia Status: Chronic Assessment & Plan: Likely 2/2 advanced renal disease. FOBT was negative at that time. Given anemia and renal disease will complete work up with SPEP and kappa/lambda to evaluate for myeloma. The patient was scheduled to have a colonoscopy recently and was too ill to have it done likely due to current illness. An erythropoietin level is pending. (6) Type 2 diabetes mellitus Status: Chronic Assessment & Plan: She is on chronic treatment with metformin, which has been discontinued. She is on sliding scale level #1. Exam Sepsis Risk: No Definite Risk OCHOA RUBA FINK DO Dec 11, 2017 11:59
[2017-12-11] MEDS: diphenhydrAMINE 25 MG CAP PO PRN ×2 (12:09→20:28)
[2017-12-11] MEDS: INSULIN HUM LISPRO 100 UN/ML 3 ML VIAL SUBQ PRN (12:11)
[2017-12-11 16:02] VITALS: BP 139/77
--- NOTE | 2017-12-11 16:21 | Medical Nutrition Therapy ---
Nutrition Anthropometrics Height (Inches): 64.00 Height (Calculated Centimeters: 162.946980 Weight (Pounds): 134 Weight (Calculated Kilograms): 60.895 Todd Nutrition Score: Probably Inadequate Todd Nutrition Risk Score: 16 Dietary Referral Nutrition Risk Factors: Recent Nutrition Impact Nutrition Risk Comment: n/v x a mo Physical Findings Physical Appearance: WNL Skin Appearance Skin Appearance: Edema Edema Location Modifier: Edema Location: Type of Edema: Degree of Edema: Gastrointestinal Symptoms GI Symtoms: Appetite Changes Tube Present: Bowel Sounds: Recent Bowel Pattern: Stool Characteristics: Nutritional Diagnosis Nutritional Risk Acuity 1: Acute/ES Renal Nutritional Risk Acuity 4: Good Appetite Past Medical History: Type 2 diabetes mellitus, Wrist fracture, hysterectomy, Recurrent UTI Nutritional Acuity: 1-High Nutrition Diagnosis: Decreased Nutrient Needs Nutrition Etiology: Physiological Causes Nutrition Problem/Etiology/Sym: Decreased Nutrient Needs (potassium, sodium) related to renal dysfunction AEB high Creat, diagnosis of ARF. Energy Requirement: 1640 Protein Requirement: 61 Diet Type: Diet as Tolerated CALVIN/REG Nutritional Education Nutrition Education Topic: Other (renal) Learning Readiness: Not Interested Teaching Methods: Discussion, Handout Response to Teaching: Verbalize understanding (daughter) Teaching Recipient: Patient, Family Nutrition Counseling: Pt states has not had education on renal disease and diet. Pt has dx of CKD stage 4. Discussed with pt and daughter importance of limiting protein to preserve kidney function. Currently K+ and phos are WNR. Pt states she doesn't like meat but does eat lots of fruits and veg. Provided list of high fruits and veg to limit or avoid. Provided list of low K+ fruits/veg and encouraged eating more of these. Recommend limit high protein foods. Recommend controlling CHO for diabetes. Nutrition Monitoring & Eval Nutrition Goals: Eat 75-100% Meal Nutrition Follow-Up: Fair Intake RD Patient Assessment Time: [address] Assessment Type: RD Assessment Patient Nutrition Acuity: 1-High Follow Up Date: Dec 14, 2017 Nutritional Comment: 12/08 Pt admitted for Odopc-eq-hmohrnq kidney injury and UTI. Weight WNR with BMI of 23.0. Low H/H, Phos 4.5, Glu 185, Creat 4.90. Lispro SSI. Receiving CALVIN with low K+ and consuming 100% of meals. Follow clinical progression, labs, etc. -DRT 12/11 Pt having difficulties with diet restriction of renal diet, especially low K+. K+ is WNR (4). Dr changed diet to regular. BUN cont elevated but has improved to 40. Creatinine cont elevated but improved to 3.7. GFR cont in stage 5 CKD but has improved from 7.6 to 12. Will cont to monitor and encourage intake. REJI LEE Dec 11, 2017 16:21
[2017-12-11 20:15] VITALS: BP 161/89
[2017-12-12 03:21] VITALS: BP 163/87
[2017-12-12 07:02] VITALS: BP 161/80
[2017-12-12] MEDS ORDERED: DARBEPOETIN SUBQ ONE (09:35)
[2017-12-12] MEDS: MULTIVITAMINS (PRENATAL) TAB PO SCH (09:52)
--- NOTE | 2017-12-12 11:20 | Hospitalist Progress Note ---
Subjective Progress Notes Subjective She reports feeling "tired". She has refused PT/OT at times. Physical Exam Vital Signs Date Time Temp Pulse Resp B/P (MAP) Pulse Ox O2 Delivery O2 Flow Rate FiO2 12/12/17 07:02 98 Room Air 12/12/17 07:02 98.2 81 14 161/80 (107) Intake and Output 12/13/17 07:00 # Voids 1 General Appearance: Alert, Awake Cardiovascular: Regular Rate and Rhythm Respiratory: Clear to Auscultation GI: Soft and Non-Tender Extremities: Warm, Perfused Result Diagram: 12/11/17 0604 12/12/17 0547 Assessment and Plan Problems: (1) Hzzyj-yf-lnfdyyk kidney injury Assessment & Plan: She did present with nausea and vomiting, which is believed to be secondary to renal failure. She was placed on a bicarbonate infusion initially and is now on a saline infusion. Her renal function has been slowly improving (creatinine 3.6 today). SPEP and kappa/lambda are negative for myeloma. She was taking high doses of NSAIDS over the last several years, which may be a contributing factor. (2) Urinary tract infection Status: Acute Assessment & Plan: She was on empiric treatment with ceftriaxone and then converted to oral Keflex. A urine culture was not done at admission. Off antibiotics at this time. Will re-check cath UA and culture today. (3) Hypertension Assessment & Plan: BP modestly elevated. Amlodipine was started yesterday, but she reported pruritus afterwards - so it was topped. Will monitor and consider other agent if persists. (4) Fatigue Assessment & Plan: Therapy consults have been requested. May be related to her anemia and renal failure. (5) Anemia Status: Chronic Assessment & Plan: Likely secondary to advanced renal disease. FOBT was negative at that time. Given anemia and renal disease with low erythropoietin level, will start Aranesp and vitamins. SPEP and kappa/lambda to evaluate for myeloma are negative. The patient was scheduled to have a colonoscopy recently and was too ill to have it done likely due to this current illness. (6) Type 2 diabetes mellitus Status: Chronic Assessment & Plan: She is on chronic treatment with metformin, which has been discontinued. She is on sliding scale level #1. Exam Sepsis Risk: No Definite Risk CONNOR STERLING MD Dec 12, 2017 11:20
[2017-12-12] MEDS: INSULIN HUM LISPRO 100 UN/ML 3 ML VIAL SUBQ PRN ×2 (11:48→20:52)
[2017-12-12 11:52] VITALS: BP 160/78
[2017-12-12] MEDS: diphenhydrAMINE 25 MG CAP PO PRN (14:11)
[2017-12-12 19:49] VITALS: BP 169/90
[2017-12-12 23:30] VITALS: BP 149/85
[2017-12-13 02:49] VITALS: BP 159/83
[2017-12-13 05:47] LABS: PLATELET COUNT, AUTOMATED 152 K/uL (150-450)
[2017-12-13] MEDS ORDERED: cefTRIAXone 1 GM VIAL IVP SCH (06:05)
[2017-12-13] MEDS: MULTIVITAMINS (PRENATAL) TAB PO SCH (10:10)
--- NOTE | 2017-12-13 11:17 | Hospitalist Progress Note ---
Subjective Progress Notes Subjective She is without complaints. She reports ambulating well. Physical Exam Vital Signs Date Time Temp Pulse Resp B/P (MAP) Pulse Ox O2 Delivery O2 Flow Rate FiO2 12/13/17 02:49 98.1 90 14 159/83 (108) 96 Room Air Intake and Output 12/14/17 07:00 Intake Total 400 ml Balance 400 ml Intake Oral 400 ml General Appearance: Alert, Awake, No Acute Distress GI: Soft and Non-Tender Result Diagram: 12/13/1752212/13/17522 Assessment and Plan Problems: (1) Jfpgn-xa-rnqzwxq kidney injury Assessment & Plan: She did present with nausea and vomiting, which is believed to be secondary to renal failure. She was placed on a bicarbonate infusion initially and is now on a saline infusion. Her renal function has been slowly improving (creatinine 3.6 today). SPEP and kappa/lambda are elevated. Dr. Vibha Haines recommends checking the a 24 hour urine for Bence Fragoso proteins and she would need follow up with him. She was taking high doses of NSAIDS over the last several years, which may be a contributing factor. Her daughter is scheduling follow up with a pt escort. (2) Urinary tract infection Status: Acute Assessment & Plan: She was on empiric treatment with ceftriaxone and then converted to oral Keflex. A urine culture was not done at admission. She has received 3 days of antibiotics. Repeat UA showed a decrease in the urine wbc. She is afebrile and has a normal wbc. (3) Anemia Status: Chronic Assessment & Plan: Likely secondary to advanced renal disease. FOBT was negative at that time. Given anemia and renal disease with low erythropoietin level, she was given Aranesp and vitamins. SPEP and kappa/lambda to elevated. Dr. Dubon recommended checking a Ferritin. If it is <100, then will give a dose of Injectafer 750mg X1 and then it can be repeated as an outpatient. The patient was scheduled to have a colonoscopy recently and was too ill to have it done likely due to this current illness. (4) Hypertension Assessment & Plan: BP modestly elevated. Amlodipine was started, but she reported pruritus afterwards - so it was topped. Will monitor and consider other agent if persists. (5) Fatigue Assessment & Plan: Therapy consults have been requested, but she refuses to participate. May be related to her anemia and renal failure. (6) Type 2 diabetes mellitus Status: Chronic Assessment & Plan: She is on chronic treatment with metformin, which has been discontinued. She is on sliding scale level #1. Exam Sepsis Risk: No Definite Risk KEHINDE CALHOUN MD Dec 13, 2017 11:17
[2017-12-13 11:31] VITALS: BP 164/76
[2017-12-13] MEDS: INSULIN HUM LISPRO 100 UN/ML 3 ML VIAL SUBQ PRN ×2 (12:24→16:54)
[2017-12-13 16:18] VITALS: BP 145/76
[2017-12-13 19:23] VITALS: BP 142/86
[2017-12-14 07:47] VITALS: BP 145/87
[2017-12-14] MEDS: MULTIVITAMINS (PRENATAL) TAB PO SCH (10:22)
--- NOTE | 2017-12-14 13:01 | Hospitalist Progress Note ---
Subjective Progress Notes Subjective The patient complains of R LE swelling and diarrhea starting this am. Physical Exam Vital Signs Date Time Temp Pulse Resp B/P (MAP) Pulse Ox O2 Delivery O2 Flow Rate FiO2 12/14/17 07:47 98.3 90 20 145/87 (106) 96 Room Air Intake and Output 12/15/17 07:00 Intake Total 360 ml Output Total 450 ml Balance -90 ml Intake Oral 360 ml Output Urine Total 450 ml # Bowel Movements 2 General Appearance: Awake, No Acute Distress Neuro: No Gross deficits Cardiovascular: Regular Rate and Rhythm Respiratory: Clear to Auscultation GI: Soft and Non-Tender Extremities: Warm, Other (R calf is swollen and tender to palpitation.) Integumentary: Generalized Fragile Skin Psych: Appropriate Mood & Affect Result Diagram: 12/13/1752212/13/17522 Assessment and Plan Problems: (1) Diarrhea Status: Acute Assessment & Plan: She has been on antibiotics. Will check a C. diff. (2) Lower leg pain Status: Acute Assessment & Plan: With swelling. Painful to palpation. Venous doppler study ordered. (3) Grohj-ey-fkgqspi kidney injury Assessment & Plan: She did present with nausea and vomiting, which is believed to be secondary to renal failure. She was placed on a bicarbonate infusion initially and is now on a saline infusion. Her renal function has been slowly improving (creatinine 3.6 today). SPEP and kappa/lambda are elevated. Dr. Vibha Haines recommended checking the a 24 hour urine for Bence Fragoso proteins and this was completed today. She would need follow up with him. She was taking high doses of NSAIDS over the last several years, which may be a contributing factor. Her daughter will be scheduling follow up with a director voice. (4) Urinary tract infection Status: Acute Assessment & Plan: She was on empiric treatment with ceftriaxone and then converted to oral Keflex. A urine culture was not done at admission. She has received 3 days of antibiotics. Repeat UA showed a decrease in the urine wbc. She is afebrile and has a normal wbc. (5) Anemia Status: Chronic Assessment & Plan: Likely secondary to advanced renal disease. FOBT was negative at that time. Given anemia and renal disease with low erythropoietin level, she was given Aranesp and vitamins. SPEP and kappa/lambda to elevated. Dr. El-Tarabily recommended checking a Ferritin. If it is <100, then will give a dose of Injectafer 750mg X1 and then it can be repeated as an outpatient. The patient was scheduled to have a colonoscopy recently and was too ill to have it done likely due to this current illness. (6) Hypertension Assessment & Plan: BP modestly elevated. Amlodipine was started, but she reported pruritus afterwards - so it was topped. Will monitor and consider other agent if persists. (7) Fatigue Assessment & Plan: Therapy consults have been requested, but she refuses to participate. May be related to her anemia and renal failure. (8) Type 2 diabetes mellitus Status: Chronic Assessment & Plan: She is on chronic treatment with metformin, which has been discontinued. She is on sliding scale level #1. Time Spent on Plan of Care: < 30 min Exam Sepsis Risk: No Definite Risk Problem Qualifiers (1) Lower leg pain: Laterality: right Qualified Codes: M79.661 - Pain in right lower leg ABRIL STERLING MD Dec 14, 2017 13:01
--- NOTE | 2017-12-14 14:28 | Miscellaneous Provider Note ---
Miscellaneous Provider Note Note The patient's venous doppler study shows extensive clot in the R leg (see report ). The clinical pharmacist consulted with Dr. Haines. Due to the patient's chronic renal failure, she will need to be on a heparin drip as well as warfarin until her INR is theapeutic. Will administer an 80unit/kg bolus and then start 1100 units/hr gtt. Will give warfarin 5mg daily starting this afternoon. ABRIL STERLING MD Dec 14, 2017 14:28
--- NOTE | 2017-12-14 14:36 | Medical Nutrition Therapy ---
Nutrition Anthropometrics Height (Inches): 64.00 Height (Calculated Centimeters: 162.532069 Weight (Pounds): 134 Weight (Calculated Kilograms): 60.895 Todd Nutrition Score: Probably Inadequate Todd Nutrition Risk Score: 20 Dietary Referral Nutrition Risk Factors: Recent Nutrition Impact Nutrition Risk Comment: n/v x a mo Nutritional Diagnosis Nutritional Risk Acuity 1: Acute/ES Renal Nutritional Risk Acuity 4: Good Appetite Past Medical History: Type 2 diabetes mellitus, Wrist fracture, hysterectomy, Recurrent UTI Nutritional Acuity: 1-High Nutrition Diagnosis: Decreased Nutrient Needs Nutrition Etiology: Physiological Causes Nutrition Problem/Etiology/Sym: Decreased Nutrient Needs (potassium, sodium) related to renal dysfunction AEB high Creat, diagnosis of ARF. Energy Requirement: 1640 Protein Requirement: 61 Diet Type: Diet as Tolerated CALVIN/REG Nutrition Monitoring & Eval Nutrition Goals: Eat 75-100% Meal RD Patient Assessment Time: [address] Assessment Type: RD Re-Assessment Patient Nutrition Acuity: 1-High Follow Up Date: Dec 17, 2017 Nutritional Comment: 12/08 Pt admitted for Lhzsf-ta-ffoxrxz kidney injury and UTI. Weight WNR with BMI of 23.0. Low H/H, Phos 4.5, Glu 185, Creat 4.90. Lispro SSI. Receiving CALVIN with low K+ and consuming 100% of meals. Follow clinical progression, labs, etc. -DRT 12/11 Pt having difficulties with diet restriction of renal diet, especially low K+. K+ is WNR (4). Dr changed diet to regular. BUN cont elevated but has improved to 40. Creatinine cont elevated but improved to 3.7. GFR cont in stage 5 CKD but has improved from 7.6 to 12. Will cont to monitor and encourage intake. 8/3. Pt is experiencing diarrhea and swelling/pain in the lower left leg. BG levels are still slightly elevated 143, which is a slight decrease in the last couple of days. Otherwise, labs are of no concern. Pt seems to be tolerating CALVIN/REG diet. Consuming 75-100% of meals. Cont to encourage intake and monitor labs. NILS BARAKAT Dec 14, 2017 14:35
--- NOTE | 2017-12-14 14:42 | RADIOLOGY IMAGING REPORT ---
FACILITY: [facility] [place] PATIENT NAME: Luh Schneider : 1940 MR: [id number] V: [id number] EXAM DATE: ORDERING PHYSICIAN: ABRIL STERLING TECHNOLOGIST: Location: [facility] Patient: Luh Schneider : 1940 Visit/Account:[id number] Date of Sevice: 12/14/2017 Venous Doppler ultrasound right lower extremity Indication: New onset swelling. Comparison: None Available Findings: Duplex Doppler and color flow imaging was performed. Thrombus is noted within the right c ommon femoral vein, femoral and popliteal vein. There is also thrombus noted within the proximal por tion of the greater saphenous vein. The posterior tibial, anterior tibial and peroneal veins are nor mal in appearance. Diminutive color flow is noted within each interrogated segment. IMPRESSION: 1. Deep venous thrombus extending from the right common femoral vein into the femoral and popliteal veins. Results were called to Dr. ABRIL STERLING at 12/14/2017 2:37 PM. Report Dictated By: Davin Alejandro DO at 12/14/2017 2:27 PM Report E-Signed By: Davin Alejandro DO at 12/14/2017 2:38 PM WSN:[id number]
[2017-12-14 14:44] VITALS: BP 152/75
[2017-12-14] MEDS ORDERED: WARFARIN SOD 5 MG TAB PO ONE (15:30)
[2017-12-14] MEDS ORDERED: HEPARIN (PORC) 5000 UN/ML VIAL IVP ONE (15:45)
[2017-12-14] MEDS: HEPARIN* SOD/D5W 25000 U/500ML 500 ML IV SCH (16:34)
[2017-12-14] MEDS: INSULIN HUM LISPRO 100 UN/ML 3 ML VIAL SUBQ PRN (16:49)
[2017-12-14 19:30] VITALS: BP 163/93
[2017-12-14 21:52] VITALS: BP 146/79
[2017-12-14 23:06] VITALS: BP 155/91
[2017-12-15] VITALS (9 sets, daily range): BP systolic 148–187; BP diastolic 71–98
[2017-12-15] MEDS: VANCOMYCIN HCL 125 MG CAPSULE PO SCH ×5 (00:22→23:19)
[2017-12-15] MEDS: CARVEDILOL 3.125 MG TAB PO SCH ×2 (09:15→21:54)
[2017-12-15] MEDS: MULTIVITAMINS (PRENATAL) TAB PO SCH (09:15)
[2017-12-15] MEDS: WARFARIN SOD 5 MG TAB PO SCH (12:03)
[2017-12-15] MEDS: INSULIN HUM LISPRO 100 UN/ML 3 ML VIAL SUBQ PRN ×2 (12:03→17:10)
--- NOTE | 2017-12-15 13:31 | Hospitalist Progress Note ---
Subjective Progress Notes Subjective 77F admitted for BRIDGET on CKD. This am doing fair, no decrease in BM. Leg slightly swollen. Patient Complains of: Neurological: No: Syncope, Confusion, Weakness Cardiovascular: No: Chest Pain, Palpitations Respiratory: No: Cough, Congestion Gastrointestinal: No Nausea, No Vomiting Genitourinary: No Dysuria Musculoskeletal: No: Pain, Sprain Physical Exam Vital Signs Date Time Temp Pulse Resp B/P (MAP) Pulse Ox O2 Delivery O2 Flow Rate FiO2 12/15/17 12:12 98.0 82 16 148/74 (98) 99 Room Air General Appearance: Alert, Awake, No Acute Distress Neuro: No Gross deficits Eyes: PERRLA ENT: Normal Neck: No Masses Cardiovascular: Normal Rhythm & Peripheral Pulses Respiratory: No Respiratory Distress Chest: No Tenderness GI: Soft and Non-Tender Lymph: Cervical Nodes Benign Musculoskeletal: No Weakness/Pain Extremities: Soft and Non Tender, Warm, Pulses, Edema (R leg edema) Integumentary: Skin Intact without Lesion / Mass Psych: Alert & Oriented X3 Result Diagram: 12/13/1752212/13/17522 Assessment and Plan Problems: (1) DVT (deep venous thrombosis) Assessment & Plan: Patient had SCD ordered on admission but had been refusing them per review of documentation. US + DVT in R lower extremity. Started on heparin drip and warfarin. . (2) Diarrhea Status: Acute Assessment & Plan: She has been on antibiotics. Cdiff positive, begin PO vancomycin. (3) Wuvwj-iw-mcaxjom kidney injury Assessment & Plan: She did present with nausea and vomiting, which is believed to be secondary to renal failure. Her renal function has been slowly improving ( creatinine 3.6 today). SPEP and kappa/lambda are elevated with no monoclonal spike. Dr. Dubon recommended checking the a 24 hour urine for Bence Fragoso proteins and this was completed today. She would need follow up with him. She was taking high doses of NSAIDS over the last several years, which may be a contributing factor. Her daughter will be scheduling follow up with a sewage plant attendant. (4) Urinary tract infection Status: Acute Assessment & Plan: She was on empiric treatment with ceftriaxone and then converted to oral Keflex. A urine culture was not done at admission. She has received 3 days of antibiotics. Repeat UA showed a decrease in the urine wbc. She is afebrile and has a normal wbc. (5) Anemia Status: Chronic Assessment & Plan: Likely secondary to advanced renal disease. FOBT was negative at that time. Given anemia and renal disease with low erythropoietin level, she was given Aranesp and vitamins. SPEP no monboclonal spike and kappa/lambda elevated. Dr. Dubon recommended checking a Ferritin. If it is <100, then will give a dose of Injectafer 750mg X1 and then it can be repeated as an outpatient. The patient was scheduled to have a colonoscopy recently and was too ill to have it done likely due to this current illness. (6) Hypertension Assessment & Plan: BP modestly elevated. Amlodipine was started, but she reported pruritus afterwards - so it was topped. Will monitor and consider other agent if persists. (7) Fatigue Assessment & Plan: Therapy consults have been requested, but she refuses to participate. May be related to her anemia and renal failure. (8) Type 2 diabetes mellitus Status: Chronic Assessment & Plan: She is on chronic treatment with metformin, which has been discontinued. She is on sliding scale level #1. Exam Sepsis Risk: No Definite Risk RUBA GARCIA DO Dec 15, 2017 13:31
[2017-12-15] MEDS: HEPARIN* SOD/D5W 25000 U/500ML 500 ML IV SCH (14:44)
[2017-12-16] MEDS: VANCOMYCIN HCL 125 MG CAPSULE PO SCH ×4 (05:55→23:45)
[2017-12-16 07:04] VITALS: BP 149/79
--- NOTE | 2017-12-16 09:44 | Hospitalist Progress Note ---
Subjective Progress Notes Subjective Still having loose stools. She does have an appetite. No reported pain in legs. Physical Exam Vital Signs Date Time Temp Pulse Resp B/P (MAP) Pulse Ox O2 Delivery O2 Flow Rate FiO2 12/16/17 07:04 99.2 81 18 149/79 (102) 96 Room Air Intake and Output 12/17/17 07:00 Intake Total 47 ml Balance 47 ml IV Total 47 ml General Appearance: Alert, Awake, No Acute Distress GI: Soft and Non-Tender Extremities: No Edema Result Diagram: 12/13/1752212/13/17522 Assessment and Plan Problems: (1) DVT (deep venous thrombosis) Assessment & Plan: Patient had SCD ordered on admission but had been refusing them per review of documentation. US + DVT in R lower extremity. Started on heparin drip and warfarin. Will order daily INR, if heparin anti-Xa still therapeutic (to be done at 1100 with INR/BMP). (2) Diarrhea Status: Acute Assessment & Plan: She has been on antibiotics. Cdiff positive, now on PO vancomycin. Still having loose stools. (3) Zbctu-rz-yzzshfz kidney injury Assessment & Plan: She did present with nausea and vomiting, which is believed to be secondary to renal failure. Her renal function has been slowly improving ( creatinine 3.6 recently). SPEP and kappa/lambda are elevated with no monoclonal spike. Dr. Dubon recommended checking the a 24 hour urine for Bence Fragoso proteins and this was completed. She would need follow up with him. She was taking high doses of NSAIDS over the last several years, which may be a contributing factor. Her daughter will be scheduling follow up with a industrial equipment wirer. (4) Urinary tract infection Status: Acute Assessment & Plan: She was on empiric treatment with ceftriaxone and then converted to oral Keflex. A urine culture was not done at admission. She has received 3 days of antibiotics. Repeat UA showed a decrease in the urine wbc and <10,000 cfu/ml of klebsiella pneumoniae. She is afebrile and has a normal wbc. No further treatment at this time. (5) Anemia Status: Chronic Assessment & Plan: Likely secondary to advanced renal disease. FOBT was negative at that time. Given anemia and renal disease with low erythropoietin level, she was given Aranesp and vitamins. SPEP no monoclonal spike, but kappa/lambda elevated. Dr. Dubon recommended checking a Ferritin which was >100, so not IV iron needed. The patient was scheduled to have a colonoscopy recently and was too ill to have it done likely due to this current illness. (6) Hypertension Assessment & Plan: BP modestly elevated. Amlodipine was started, but she reported pruritus afterwards - so it was topped. Coreg started. Will follow. (7) Fatigue Assessment & Plan: Therapy consults have been requested, but she refuses to participate. May be related to her anemia and renal failure. (8) Type 2 diabetes mellitus Status: Chronic Assessment & Plan: She is on chronic treatment with metformin, which has been discontinued. She is on sliding scale level #1. Exam Sepsis Risk: No Definite Risk KEHINDE CALHOUN MD Dec 16, 2017 09:44
[2017-12-16 11:06] LABS: PLATELET COUNT, AUTOMATED 154 K/uL (150-450)
[2017-12-16 11:13] LABS: INR 1.27
[2017-12-16 11:17] VITALS: BP 135/83
[2017-12-16] MEDS: MULTIVITAMINS (PRENATAL) TAB PO SCH (11:24)
[2017-12-16] MEDS: CARVEDILOL 3.125 MG TAB PO SCH ×2 (11:24→20:30)
[2017-12-16] MEDS: WARFARIN SOD 5 MG TAB PO SCH (12:38)
[2017-12-16] MEDS: HEPARIN* SOD/D5W 25000 U/500ML 500 ML IV SCH (12:44)
[2017-12-16] MEDS: INSULIN HUM LISPRO 100 UN/ML 3 ML VIAL SUBQ PRN ×2 (12:51→17:17)
[2017-12-16 14:24] VITALS: BP 151/84
[2017-12-16] MEDS: MELATONIN 3 MG TAB PO SCH (20:30)
[2017-12-16 20:32] VITALS: BP 144/119
[2017-12-17] MEDS: VANCOMYCIN HCL 125 MG CAPSULE PO SCH ×4 (05:33→23:58)
[2017-12-17 06:54] LABS: PLATELET COUNT, AUTOMATED 168 K/uL (150-450)
[2017-12-17 07:24] VITALS: BP 155/79
[2017-12-17 07:46] LABS: INR 1.35
[2017-12-17] MEDS: CARVEDILOL 3.125 MG TAB PO SCH ×2 (08:17→21:48)
[2017-12-17] MEDS: MULTIVITAMINS (PRENATAL) TAB PO SCH (08:17)
[2017-12-17] MEDS: HEPARIN* SOD/D5W 25000 U/500ML 500 ML IV SCH (08:43)
--- NOTE | 2017-12-17 08:53 | Hospitalist Progress Note ---
Subjective Progress Notes Subjective She has no complaints this morning. She had no acute events overnight. Patient Complains of: Cardiovascular: No: Chest Pain Respiratory: No: Shortness of Breath Physical Exam Vital Signs Date Time Temp Pulse Resp B/P (MAP) Pulse Ox O2 Delivery O2 Flow Rate FiO2 12/17/17 07:31 95 Room Air 12/17/17 07:24 98.8 76 16 155/79 (104) General Appearance: Alert, Awake, No Acute Distress Cardiovascular: Regular Rate and Rhythm Respiratory: No Respiratory Distress, Clear to Auscultation GI: Soft and Non-Tender Psych: Alert & Oriented X3, Appropriate Mood & Affect Result Diagram: 12/17/1764212/17/17642 Assessment and Plan Problems: (1) DVT (deep venous thrombosis) Assessment & Plan: Patient had SCD ordered on admission but had been refusing them per review of documentation. US + DVT in R lower extremity. Started on heparin drip and warfarin. Will order daily INR, if heparin anti-Xa still therapeutic. (2) Diarrhea Status: Acute Assessment & Plan: She has been on antibiotics. Cdiff positive, now on PO vancomycin. Loose stools improving. (3) Crbbl-rb-syztuup kidney injury Assessment & Plan: She did present with nausea and vomiting, which is believed to be secondary to renal failure. Her renal function has been slowly improving ( creatinine 3.6 recently). SPEP and kappa/lambda are elevated with no monoclonal spike. Dr. Dubon recommended checking the a 24 hour urine for Bence Fragoso proteins and this was completed. She would need follow up with him. She was taking high doses of NSAIDS over the last several years, which may be a contributing factor. Her daughter will be scheduling follow up with a solar project manager. (4) Urinary tract infection Status: Acute Assessment & Plan: She was on empiric treatment with ceftriaxone and then converted to oral Keflex. A urine culture was not done at admission. She has received 3 days of antibiotics. Repeat UA showed a decrease in the urine wbc and <10,000 cfu/ml of klebsiella pneumoniae. She is afebrile and has a normal wbc. No further treatment at this time. (5) Anemia Status: Chronic Assessment & Plan: Likely secondary to advanced renal disease. FOBT was negative at that time. Given anemia and renal disease with low erythropoietin level, she was given Aranesp and vitamins. SPEP no monoclonal spike, but kappa/lambda elevated. Dr. Dubon recommended checking a Ferritin which was >100, so not IV iron needed. The patient was scheduled to have a colonoscopy recently and was too ill to have it done likely due to this current illness. (6) Hypertension Assessment & Plan: BP modestly elevated. Amlodipine was started, but she reported pruritus afterwards - so it was topped. Coreg started. Will follow. (7) Fatigue Assessment & Plan: Therapy consults have been requested, but she refuses to participate. May be related to her anemia and renal failure. (8) Type 2 diabetes mellitus Status: Chronic Assessment & Plan: She is on chronic treatment with metformin, which has been discontinued. She is on sliding scale level #1. Exam Sepsis Risk: No Definite Risk KEYLA LINK BACKEND TESTER Dec 17, 2017 08:53
[2017-12-17] MEDS: INSULIN HUM LISPRO 100 UN/ML 3 ML VIAL SUBQ PRN ×2 (11:30→21:49)
[2017-12-17] MEDS: WARFARIN SOD 5 MG TAB PO SCH (12:31)
[2017-12-17 14:32] VITALS: BP 148/74
--- NOTE | 2017-12-17 14:43 | Medical Nutrition Therapy ---
Nutrition Anthropometrics Height (Inches): 64.00 Height (Calculated Centimeters: 162.673740 Weight (Pounds): 134 Weight (Calculated Kilograms): 60.895 Hx Weight Loss: Yes (12/17. Usual weight 140-150lbs) Todd Nutrition Score: Probably Inadequate Todd Nutrition Risk Score: 17 Dietary Referral Nutrition Risk Factors: Recent Nutrition Impact Nutrition Risk Comment: n/v x a mo Nutritional Diagnosis Nutritional Risk Acuity 1: Acute/ES Renal Nutritional Risk Acuity 2: Unintended Wt Loss >5%/mo (12/17. 161 lb October 2017) Nutritional Risk Acuity 4: Good Appetite Past Medical History: Type 2 diabetes mellitus, Wrist fracture, hysterectomy, Recurrent UTI Nutritional Acuity: 1-High Nutrition Diagnosis: Decreased Nutrient Needs Nutrition Etiology: Physiological Causes Nutrition Problem/Etiology/Sym: Decreased Nutrient Needs (potassium, sodium) related to renal dysfunction AEB high Creat, diagnosis of ARF. Energy Requirement: 1640 Protein Requirement: 49 (.8 g/kg r/t ARF) Fluid Requirement: 1520 (25ml/kg) Diet Type: Diet as Tolerated CALVIN/REG Nutrition Intervention: Cont diet as ordered, Encourage intake Drug: Warfarin (12/17. 7.5 mg Warfarin QDay @ 1pm) Nutrition Monitoring & Eval Nutrition Goals: Eat 75-100% Meal Nutrition Follow-Up: Good Intake RD Patient Assessment Time: [address] Assessment Type: RD Re-Assessment Patient Nutrition Acuity: 1-High Follow Up Date: Dec 20, 2017 Nutritional Comment: 12/08 Pt admitted for Woxer-fw-jqctclb kidney injury and UTI. Weight WNR with BMI of 23.0. Low H/H, Phos 4.5, Glu 185, Creat 4.90. Lispro SSI. Receiving CALVIN with low K+ and consuming 100% of meals. Follow clinical progression, labs, etc. -DRT 12/11 Pt having difficulties with diet restriction of renal diet, especially low K+. K+ is WNR (4). Dr changed diet to regular. BUN cont elevated but has improved to 40. Creatinine cont elevated but improved to 3.7. GFR cont in stage 5 CKD but has improved from 7.6 to 12. Will cont to monitor and encourage intake. 83. Pt is experiencing diarrhea and swelling/pain in the lower left leg. BG levels are still slightly elevated 143, which is a slight decrease in the last couple of days. Otherwise, labs are of no concern. Pt seems to be tolerating CALVIN/REG diet. Consuming 75-100% of meals. Cont to encourage intake and monitor labs. MR 8/. Pt tested positive for Cdiff. Seems to be tolerating diet, conusming 75-100% of meals. Cont diet as ordered and encourage intake. Hgb continues to be low, 8.4, and BUN, 25, and Creatinine, 3.70 are elevated. Pt is on 7.5 mg of warfarin. Avoid high vitamin K foods. Pt is diabetic, BG is mildly elevated to 189. Seems pts UBW is 140-150lb, current weight 134. Pt has had a significant weight loss, 4-10% loss in 9 weeks. NESTOR BARAKATA Dec 17, 2017 09:36
[2017-12-17 19:23] VITALS: BP 152/77
[2017-12-17] MEDS: MELATONIN 3 MG TAB PO SCH (21:48)
[2017-12-18 02:57] VITALS: BP 156/85
[2017-12-18] MEDS: VANCOMYCIN HCL 125 MG CAPSULE PO SCH ×3 (05:40→17:20)
[2017-12-18 05:59] LABS: PLATELET COUNT, AUTOMATED 189 K/uL (150-450)
[2017-12-18 06:16] LABS: INR 1.7
[2017-12-18] MEDS: HEPARIN* SOD/D5W 25000 U/500ML 500 ML IV SCH (07:07)
[2017-12-18 07:44] VITALS: BP 156/83
[2017-12-18] MEDS: MULTIVITAMINS (PRENATAL) TAB PO SCH (08:54)
[2017-12-18] MEDS: CARVEDILOL 3.125 MG TAB PO SCH ×2 (08:54→20:56)
--- NOTE | 2017-12-18 10:04 | Hospitalist Progress Note ---
Subjective Progress Notes Subjective She has no complaints this morning. She had no acute events overnight. Patient Complains of: Cardiovascular: No: Chest Pain Respiratory: No: Shortness of Breath Physical Exam Vital Signs Date Time Temp Pulse Resp B/P (MAP) Pulse Ox O2 Delivery O2 Flow Rate FiO2 12/18/17 07:50 92 Room Air 12/18/17 07:44 98.3 74 16 156/83 (107) Intake and Output 12/19/17 07:00 Intake Total 652 ml Balance 652 ml Intake Oral 160 ml IV Total 492 ml General Appearance: Alert, Awake, No Acute Distress Neuro: No Gross deficits Cardiovascular: Regular Rate and Rhythm Respiratory: No Respiratory Distress, Clear to Auscultation Psych: Alert & Oriented X3, Appropriate Mood & Affect Result Diagram: 12/18/1753612/18/17536 Assessment and Plan Problems: (1) DVT (deep venous thrombosis) Assessment & Plan: Patient had SCD ordered on admission but had been refusing them per review of documentation. US + DVT in R lower extremity. Started on heparin drip and warfarin. Will order daily INR. She will still continue heparin, continue to monitor anti-Xa- still therapeutic. (2) Diarrhea Status: Acute Assessment & Plan: She has been on antibiotics. Cdiff positive, now on PO vancomycin. Loose stools improved. (3) Irtiy-hv-bfdegyb kidney injury Assessment & Plan: She did present with nausea and vomiting, which is believed to be secondary to renal failure. Her renal function has been slowly improving ( creatinine 3.6 recently). SPEP and kappa/lambda are elevated with no monoclonal spike. Dr. Dubon recommended checking the a 24 hour urine for Bence Fragoso proteins and this was completed. She would need follow up with him. She was taking high doses of NSAIDS over the last several years, which may be a contributing factor. Her daughter will be scheduling follow up with a burn out tender lace. (4) Urinary tract infection Status: Acute Assessment & Plan: She was on empiric treatment with ceftriaxone and then converted to oral Keflex. A urine culture was not done at admission. She has received 3 days of antibiotics. Repeat UA showed a decrease in the urine wbc and <10,000 cfu/ml of klebsiella pneumoniae. She is afebrile and has a normal wbc. No further treatment at this time. (5) Anemia Status: Chronic Assessment & Plan: Likely secondary to advanced renal disease. FOBT was negative at that time. Given anemia and renal disease with low erythropoietin level, she was given Aranesp and vitamins. SPEP no monoclonal spike, but kappa/lambda elevated. Dr. Dubon recommended checking a Ferritin which was >100, so not IV iron needed. The patient was scheduled to have a colonoscopy recently and was too ill to have it done likely due to this current illness. (6) Hypertension Assessment & Plan: BP modestly elevated. Amlodipine was started, but she reported pruritus afterwards - so it was topped. Coreg started. Will follow. (7) Fatigue Assessment & Plan: Therapy consults have been requested, but she refuses to participate. May be related to her anemia and renal failure. (8) Type 2 diabetes mellitus Status: Chronic Assessment & Plan: She is on chronic treatment with metformin, which has been discontinued. She is on sliding scale level #1. Exam Sepsis Risk: No Definite Risk KEYLA LINK AGENCY DEVELOPMENT MANAGER Dec 18, 2017 10:04
[2017-12-18] MEDS: INSULIN HUM LISPRO 100 UN/ML 3 ML VIAL SUBQ PRN ×2 (11:17→16:11)
[2017-12-18] MEDS: WARFARIN SOD 5 MG TAB PO SCH (12:16)
[2017-12-18 14:41] VITALS: BP 160/73
[2017-12-18 19:50] VITALS: BP 142/65
[2017-12-18] MEDS: MELATONIN 3 MG TAB PO SCH (20:56)
[2017-12-19] MEDS: VANCOMYCIN HCL 125 MG CAPSULE PO SCH ×3 (00:08→12:21)
[2017-12-19 06:36] LABS: PLATELET COUNT, AUTOMATED 219 K/uL (150-450)
[2017-12-19 06:44] LABS: INR 2.11
[2017-12-19 08:19] VITALS: BP 159/80
[2017-12-19] MEDS: CARVEDILOL 3.125 MG TAB PO SCH (08:27)
[2017-12-19] MEDS: MULTIVITAMINS (PRENATAL) TAB PO SCH (08:28)
[2017-12-19] MEDS ORDERED: WARF-1 PO (11:14)
[2017-12-19] MEDS ORDERED: PREN1TAB29 PO (11:14)
[2017-12-19] MEDS ORDERED: CAR3.125 PO (11:14)
[2017-12-19] MEDS ORDERED: VANC125C3 PO (11:14)
--- NOTE | 2017-12-19 11:46 | Hospitalist Depart ---
Discharge Summary Reason for Hosp/Final Diag: (1) DVT (deep venous thrombosis) Status: Acute Hospital Course & Plan: Patient had SCD ordered on admission but had been refusing them per review of documentation. US + DVT in R lower extremity. Started on heparin drip until warfarin therapeutic. She will continue Warfarin 7.5mg daily. Patient will follow up with Dr. Frank for routine monitoring of INR. (2) C. difficile diarrhea Status: Acute Hospital Course & Plan: She has been on antibiotics. C-diff positive, now on PO vancomycin. Loose stools improved. She has had five days of treatment during admission, she will need five more days of antibiotics. (3) [id number] kidney injury Hospital Course & Plan: She did present with nausea and vomiting, which is believed to be secondary to renal failure. Her renal function has been slowly improving (creatinine 3.5 today). SPEP and kappa/lambda are elevated with no monoclonal spike. Dr. Eaton recommended checking the a 24 hour urine for Bence Fragoso proteins and this was completed. She would need follow up with him. She was taking high doses of NSAIDS over the last several years, which may be a contributing factor. Her daughter will be scheduling follow up with a program support clerk. (4) Urinary tract infection Status: Acute Hospital Course & Plan: She was on empiric treatment with ceftriaxone and then converted to oral Keflex. She completed therapy. A urine culture was not done at admission. She has received 3 days of antibiotics. Repeat UA showed a decrease in the urine wbc and <10,000 cfu/ml of klebsiella pneumoniae. She is afebrile and has a normal wbc. No further treatment at this time. (5) Anemia Status: Chronic Hospital Course & Plan: Likely secondary to advanced renal disease. FOBT was negative at that time. Given anemia and renal disease with low erythropoietin level, she was given Aranesp and vitamins. SPEP no monoclonal spike, but kappa/lambda elevated. Dr. Eaton recommended checking a Ferritin which was >100, so not IV iron needed. The patient was scheduled to have a colonoscopy recently and was too ill to have it done likely due to this current illness. (6) Hypertension Hospital Course & Plan: BP modestly elevated. Amlodipine was started, but she reported pruritus afterwards - so it was topped. Coreg started. Will follow. (7) Fatigue Hospital Course & Plan: Therapy consults have been requested, but she refuses to participate. May be related to her anemia and renal failure. (8) Type 2 diabetes mellitus Status: Chronic Hospital Course & Plan: She is on chronic treatment with metformin, which has been discontinued. She will follow up with Dr. Frank for further recommendations. Departure Latest Vital Signs Vital Signs 12/19/17 12/19/17 08:19 08:40 Temp 97.7 Pulse 83 Resp 18 B/P (MAP) 159/80 (106) Pulse Ox 96 O2 Delivery Room Air Weight (Pounds): 134 Weight (Ounces): 4.0 Result Diagram: 12/19/1761512/19/17615 Condition: Improved Discharge: Home, Self Care Discharge Instructions Home Meds Active Scripts Warfarin Sodium (COUMADIN) 5 Mg Tablet, 7.5 MG PO QDAY, #30 TAB Prov:KEYLA LINK 12/19/17 Vancomycin Hcl (VANCOMYCIN HCL) 125 Mg Capsule, 125 MG PO QID, #20 CAPSULE Prov:KEYLA LINK 12/19/17 Vit#96/Ferrous Fum/Fa ( TABLET) 1 Each Tablet, 1 EACH PO QDAY, #30 TAB Prov:KEYLA LINK 12/19/17 Carvedilol (CARVEDILOL) 3.125 Mg Tab, 3.125 MG PO BID, #60 TAB Prov:KEYLA LINK 12/19/17 Diet: Regular Activity: As Tolerated Copies to: RAINA EATON MD; GIAN FRANK DO Venous Thromboembolism Antithrombotics Is Pt On Any Antithrombotics?: No KEYLA LINK [facility] Dec 19, 2017 11:46
[2017-12-19] MEDS: WARFARIN SOD 5 MG TAB PO SCH (12:22)
[2017-12-19] MEDS: INSULIN HUM LISPRO 100 UN/ML 3 ML VIAL SUBQ PRN (12:23)
== END 2017-12-19 14:45 | disposition home or self-care (01) | DRG 683 ==
LOC: ER 18:29 → INTOOBSV 19:29 → MED 19:29 → OBSVTOIN 19:29
PROVIDERS: ADMIT Internal Medicine; ATTEND Internal Medicine
DX: N17.9 Acute kidney failure, unspecified (principal); I82.411 Acute embolism and thrombosis of right femoral vein; N30.00 Acute cystitis without hematuria; E87.1 Hypo-osmolality and hyponatremia; I82.491 Acute embolism and thrombosis of other specified deep vein of right lower extremity; D63.1 Anemia in chronic kidney disease; I12.9 Hypertensive chronic kidney disease with stage 1 through stage 4 chronic kidney disease, or unspecified chronic kidney disease; N18.4 Chronic kidney disease, stage 4 (severe); E11.22 Type 2 diabetes mellitus with diabetic chronic kidney disease; Z91.040 Latex allergy status; Z87.891 Personal history of nicotine dependence; Z90.710 Acquired absence of both cervix and uterus; Z88.2 Allergy status to sulfonamides; Z79.84 Long term (current) use of oral hypoglycemic drugs
CPT/HCPCS: 36415; 36416; 81001; 82040; 82150; 82247; 82310; 82374; 82435; 82550; 82565; 82570; 82668; 82728; 82803; 82947; 82948; 83690; 83735; 83880; 83883; 84075; 84100; 84132; 84155; 84156; 84165; 84295; 84300; 84450; 84460; 84520; 85025; 85520; 85610; 85730; 86335; 87077; 87088; 87186; 87324; 87449; 96361; 96365; 96375; 97161; 97165; 99284; A4353; J0696; J0881; J1644; J2405; J7030; J7050; J7070; Q0163

== ENCOUNTER 2017-12-20 17:32 | Emergency (ER) | payer MEDICARE, BC ==
[2017-12-07 20:29] VITALS: Wt 60.9 kg
[~2017-12-20 17:32] MED LIST changes: +CAR3.125 PO; +PREN1TAB29 PO; +VANC125C3 PO; +WARF-1 PO
--- NOTE | 2017-12-20 17:48 | ER Report ---
History and Physical Time Seen By MD: 17:47 HPI/ROS CHIEF COMPLAINT: Right leg swelling HISTORY OF PRESENT ILLNESS: 77-year-old female patient presents to emergency room with complaint of right leg swelling. Patient states that she was discharged yesterday from the hospital. She states that she had gone to see her primary care provider today and throughout the day shows that her leg was swelling. She states that yesterday she did not have any swelling of the leg. She states that she's not had any pain in the leg and denies having chest pain or shortness of breath. Patient states that she has been taking Coumadin as directed and denies missing any doses. She states that she has not noticed any bleeding. She denies any nausea, vomiting or diarrhea. Patient states she is just concerned because of the swelling in her leg. She is unsure what her INR was which was checked earlier today by her primary care provider as her primary care provider told her that would be a couple of hours. Allergies: Coded Allergies: Sulfa (Sulfonamide Antibiotics) (Verified Allergy, Intermediate, 12/20/17) latex (Verified Allergy, Mild, 12/20/17) Home Meds Active Scripts Warfarin Sodium (COUMADIN) 5 Mg Tablet, 7.5 MG PO QDAY, #30 TAB Prov:KEYLA LINK [facility] 12/19/17 Vancomycin Hcl (VANCOMYCIN HCL) 125 Mg Capsule, 125 MG PO QID, #20 CAPSULE Prov:KEYLA LINK [facility] 12/19/17 Vit#96/Ferrous Fum/Fa ( TABLET) 1 Each Tablet, 1 EACH PO QDAY, #30 TAB Prov:KEYLA LINK [facility] 12/19/17 Carvedilol (CARVEDILOL) 3.125 Mg Tab, 3.125 MG PO BID, #60 TAB Prov:KEYLA LINKP 12/19/17 Past Medical/Surgical History Patient has a past medical history of DVT, frequent UTI, left wrist fracture, diabetes, hypothyroidism, acute renal failure. Patient has a surgical history of hysterectomy. Reviewed Nurses Notes: Yes Hx Smoking: Yes (probably smokes once a month) Smoking Status: Current: Some Days Smoker Exposure to Second Hand Smoke?: No Hx Substance Use Disorder: No Hx Alcohol Use: No Constitutional Vital Sign - Last 24 Hours 12/20/17 12/20/17 12/20/17 12/20/17 17:35 17:43 17:47 18:00 Temp 97.3 Pulse 88 Resp 16 B/P (MAP) 142/72 147/72 (97) 142/77 (98) Pulse Ox 98 98 O2 Delivery Room Air 12/20/17 12/20/17 12/20/17 12/20/17 18:02 18:17 18:30 18:32 Pulse 87 88 B/P (MAP) 139/74 (95) Pulse Ox 97 94 93 Physical Exam General appearance: Alert no distress. Respiratory: Chest is non tender, lungs are clear to auscultation. Cardiac: Regular rate and rhythm. Musculoskeletal: Patient does have swelling of the right lower extremity, it is not pitting, she has palpable pulses and brisk capillary refill. DIFFERENTIAL DIAGNOSIS: After history and physical exam differential diagnosis was considered for DVT, inadequately anticoagulated. Medical Decision Making Data Points Laboratory Hematology Test 12/20/17 18:43 Prothrombin Time 26.8 seconds (12.0-14.4) Prothromb Time International Ratio 2.43 Chemistry Test 12/20/17 18:43 Prothrombin Time 26.8 seconds (12.0-14.4) Prothromb Time International Ratio 2.43 Coagulation Test 12/20/17 18:43 Prothrombin Time 26.8 seconds Prothromb Time International Ratio 2.43 ED Course/Re-evaluation ED Course Patient was admitted to an exam room, history and physical were obtained. Differential diagnoses were considered. On examination patient does have swelling to the right lower extremity, she has brisk capillary refill, good palpable pulses. With her being recently diagnosed, on December 14, with a DVT to believe that is likely the cause of the swelling. I initially wanted to check her INR, she stated that she did have that done earlier today and wanted to see if her son heard the results. He had not we'll recheck her INR. He was 2.43. I believe it is right in the range we want her to be, between 2 and 3. I will have her go ahead and continue her warfarin. She is to follow-up with Dr. Frank in one week to have her INR rechecked. She is to elevate her leg when she is not active during the day. She is return to emergency room with shortness of breath, chest pain or generally feeling worse. Patient and her daughter verbalized understanding and agreement with plan. Decision to Disposition Date: Dec 20, 2017 Decision to Disposition Time: 19:16 Depart Departure Latest Vital Signs Vital Signs Date Time Temp Pulse Resp B/P (MAP) Pulse Ox O2 Delivery O2 Flow Rate FiO2 12/20/17 18:32 93 12/20/17 18:30 139/74 (95) 12/20/17 18:17 88 12/20/17 17:35 97.3 16 Room Air Impression: Primary Impression: DVT (deep venous thrombosis) Condition: Improved Disposition: HOME OR SELF-CARE Referrals: GIAN FRANK DO (PCP) Patient Instructions: Deep Venous Thrombosis (ED) Additional Instructions: Limit activity by how you are feeling. Get plenty of rest. Elevate your foot when you have swelling of your leg. Follow up with Dr. Frank in 1 week to have your INR rechecked. Continue with the Coumadin 7.5mg Return to the ER if you have chest pain or shortness of breath, but certainly if you are feeling worse. Problem Qualifiers Primary Impression: DVT (deep venous thrombosis) DVT location: lower extremity Affected thrombotic vein of extremity: popliteal Chronicity: acute Laterality: right Qualified Codes: I82.431 - Acute embolism and thrombosis of right popliteal vein PARTHA OCONNOR Dec 20, 2017 17:48
[2017-12-20 18:59] LABS: INR 2.43
[2017-12-20 19:00] VITALS: BP 135/66
== END 2017-12-20 19:25 | disposition home or self-care (01) ==
LOC: ER 17:51
DX: I82.431 Acute embolism and thrombosis of right popliteal vein (principal); E11.9 Type 2 diabetes mellitus without complications; E03.9 Hypothyroidism, unspecified; F17.200 Nicotine dependence, unspecified, uncomplicated; Z79.01 Long term (current) use of anticoagulants; Z79.899 Other long term (current) drug therapy
CPT/HCPCS: 36415; 85610; 99282

== ENCOUNTER → 2018-01-08 | Outpatient (REF) | payer MEDICARE, BC ==
[2017-12-07 20:29] VITALS: BMI 25.7
== END ==
LOC: ZZSENDIN 17:07
PROVIDERS: ATTEND Urology
DX: N39.0 Urinary tract infection, site not specified (principal); R31.0 Gross hematuria; B96.89 Other specified bacterial agents as the cause of diseases classified elsewhere
CPT/HCPCS: 81001; 87077; 87088; 87186

== ENCOUNTER → 2018-01-10 | Outpatient (CLI) | payer MEDICARE, BC ==
[2017-12-07 20:29] VITALS: BMI 25.7
[2018-01-10 13:34] LABS: INR 5.03
== END ==
LOC: LAB 12:20
PROVIDERS: ATTEND Emergency Medicine
DX: E11.9 Type 2 diabetes mellitus without complications (principal); G62.9 Polyneuropathy, unspecified; E83.51 Hypocalcemia; I82.409 Acute embolism and thrombosis of unspecified deep veins of unspecified lower extremity; Z79.01 Long term (current) use of anticoagulants; N18.4 Chronic kidney disease, stage 4 (severe)
CPT/HCPCS: 36415; 82306; 82310; 82374; 82435; 82465; 82565; 82607; 82947; 83036; 83718; 84100; 84132; 84295; 84443; 84478; 84520; 85379; 85610

== ENCOUNTER 2018-02-18 08:15 | Outpatient (RCR) | payer MEDICARE, BC ==
[2017-12-07 20:29] VITALS: BMI 25.7
[~2018-02-18 08:15] MED LIST changes: -METF-421 PO; +METF-452 PO
[2018-02-18] MEDS ORDERED: diphenhydr DIALYSIS 50 MG/ML IVP PRN (09:05)
[2018-02-18] MEDS ORDERED: PROMETHAZINE HCL 25 MG TAB PO PRN (09:05)
[2018-02-18] MEDS ORDERED: DIALYSIS ACETAMINOPHEN 325 MG PO PRN (09:05)
[2018-02-18] MEDS ORDERED: LOPERAMIDE HCL 2 MG CAP PO PRN (09:05)
[2018-02-20] MEDS: SODIUM FERRIC GLUC 62.5 MG/5ML IVP PRN (14:10)
[2018-02-22] MEDS: DARBEPOETIN ESRD 25 MCG/ML IVP PRN (14:16)
[2018-02-27] MEDS: SODIUM FERRIC GLUC 62.5 MG/5ML IVP PRN (14:27)
[2018-03-01] MEDS: DARBEPOETIN ESRD 25 MCG/ML IVP PRN (14:10)
[2018-03-06] MEDS ORDERED: METO25TA93 PO (14:12)
[2018-03-06] MEDS ORDERED: CHOL10005 PO (14:12)
[2018-03-06] MEDS ORDERED: ONDA4TAB97 PO (14:12)
[2018-03-06] MEDS ORDERED: ACET-1966 PO (14:12)
[2018-03-06 14:39] LABS: PLATELET COUNT, AUTOMATED 153 K/uL (150-450)
[2018-03-06] MEDS: SODIUM FERRIC GLUC 62.5 MG/5ML IVP PRN (14:42)
[2018-03-08] MEDS: DARBEPOETIN ESRD 25 MCG/ML IVP PRN (16:36)
[2018-03-15] MEDS: DARBEPOETIN ESRD 25 MCG/ML IVP PRN (14:40)
[2018-03-22] MEDS: DARBEPOETIN ESRD 25 MCG/ML IVP PRN (14:15)
[2018-03-29] MEDS: DARBEPOETIN ESRD 25 MCG/ML IVP PRN (14:03)
[2018-04-03 07:34] LABS: PLATELET COUNT, AUTOMATED 173 K/uL (150-450)
[2018-04-06] MEDS: DARBEPOETIN ESRD 25 MCG/ML IVP PRN (11:43)
[2018-04-06] MEDS ORDERED: CAR3.125 PO (14:47)
[2018-04-10] MEDS ORDERED: HEPARIN (PORCINE) 1000 UNIT/ML (DIALYSIS) IVP PRN ×4 (11:40→12:00)
[2018-04-12] MEDS: HEPARIN (PORCINE) 1000 UNIT/ML (DIALYSIS) IVP PRN ×2 (10:50→10:51)
[2018-04-12] MEDS: DARBEPOETIN ESRD 25 MCG/ML IVP PRN (11:38)
[2018-04-15] MEDS: HEPARIN (PORCINE) 1000 UNIT/ML (DIALYSIS) IVP PRN ×2 (10:58)
[2018-04-17] MEDS: HEPARIN (PORCINE) 1000 UNIT/ML (DIALYSIS) IVP PRN ×2 (11:02)
[2018-04-17 11:43] LABS: PLATELET COUNT, AUTOMATED 180 K/uL (150-450)
[2018-04-19] MEDS: HEPARIN (PORCINE) 1000 UNIT/ML (DIALYSIS) IVP PRN ×2 (11:16)
[2018-04-19] MEDS: DARBEPOETIN ESRD 25 MCG/ML IVP PRN (11:53)
[2018-04-22] MEDS: HEPARIN (PORCINE) 1000 UNIT/ML (DIALYSIS) IVP PRN ×2 (13:49→13:50)
[2018-04-24] MEDS ORDERED: CAL667 PO (10:44)
[2018-04-24] MEDS ORDERED: CEPH500T7 PO (14:49)
[2018-04-24] MEDS: HEPARIN (PORCINE) 1000 UNIT/ML (DIALYSIS) IVP PRN ×2 (15:19→15:20)
[2018-04-24] MEDS ORDERED: HYDR-385 PO (18:46)
[2018-04-26] MEDS: HEPARIN (PORCINE) 1000 UNIT/ML (DIALYSIS) IVP PRN ×2 (13:39)
[2018-04-26] MEDS: DARBEPOETIN ESRD 25 MCG/ML IVP PRN (15:07)
[2018-04-29] MEDS: HEPARIN (PORCINE) 1000 UNIT/ML (DIALYSIS) IVP PRN ×2 (10:59)
[2018-05-01] MEDS: HEPARIN (PORCINE) 1000 UNIT/ML (DIALYSIS) IVP PRN ×2 (12:58→12:59)
[2018-05-03] MEDS: HEPARIN (PORCINE) 1000 UNIT/ML (DIALYSIS) IVP PRN ×2 (13:47)
[2018-05-05] MEDS: HEPARIN (PORCINE) 1000 UNIT/ML (DIALYSIS) IVP PRN ×2 (14:12→14:13)
[2018-05-08] MEDS: HEPARIN (PORCINE) 1000 UNIT/ML (DIALYSIS) IVP PRN ×2 (13:43)
[2018-05-10] MEDS: HEPARIN (PORCINE) 1000 UNIT/ML (DIALYSIS) IVP PRN ×2 (13:50→13:51)
[2018-05-10] MEDS ORDERED: DARBEPOETIN ESRD 25 MCG/ML IVP PRN (14:10)
[2018-05-13] MEDS: HEPARIN (PORCINE) 1000 UNIT/ML (DIALYSIS) IVP PRN ×2 (13:26→13:27)
[2018-05-13] MEDS ORDERED: LIDOCAINE/PRILOCAINE 30GM TUBE TP PRN (16:50)
== END 2018-05-13 18:05 | disposition home or self-care (01) ==
LOC: DIAL 08:15
PROVIDERS: ATTEND Internal Medicine Nephrology
DX: I12.0 Hypertensive chronic kidney disease with stage 5 chronic kidney disease or end stage renal disease (principal); N18.6 End stage renal disease; E11.22 Type 2 diabetes mellitus with diabetic chronic kidney disease; Z99.2 Dependence on renal dialysis; R58 Hemorrhage, not elsewhere classified; R57.8 Other shock; I82.411 Acute embolism and thrombosis of right femoral vein; R41.840 Attention and concentration deficit; M62.81 Muscle weakness (generalized); R26.81 Unsteadiness on feet; Z87.440 Personal history of urinary (tract) infections; I95.1 Orthostatic hypotension; Z91.81 History of falling; Z66 Do not resuscitate; Z79.82 Long term (current) use of aspirin; Z79.84 Long term (current) use of oral hypoglycemic drugs; N17.9 Acute kidney failure, unspecified; D63.1 Anemia in chronic kidney disease; Z79.01 Long term (current) use of anticoagulants; N39.0 Urinary tract infection, site not specified; Z79.4 Long term (current) use of insulin; Z86.718 Personal history of other venous thrombosis and embolism; R10.11 Right upper quadrant pain
CPT/HCPCS: 82040; 82108; 82247; 82306; 82310; 82374; 82465; 82565; 82570; 82728; 82947; 83540; 83550; 83970; 84075; 84100; 84132; 84295; 84460; 84478; 84520; 84540; 85018; 85025; 87340; 90999; A4657; J0882; J2916

== ENCOUNTER → 2018-03-05 | Outpatient (REF) | payer MEDICARE, BC ==
[2017-12-07 20:29] VITALS: BMI 25.7
[~2018-03-05] MED LIST changes: +ACET-1966 PO; +CHOL10005 PO; +METO25TA93 PO; +ONDA4TAB97 PO
== END ==
LOC: ZZSENDIN 17:21
PROVIDERS: ATTEND Urology
DX: N39.0 Urinary tract infection, site not specified (principal); N18.9 Chronic kidney disease, unspecified
CPT/HCPCS: 81001; 87088

== ENCOUNTER → 2018-03-06 | Outpatient (REF) | payer MEDICARE, BC ==
[2017-12-07 20:29] VITALS: BMI 25.7
[2018-03-06 15:43] LABS: INR 1.04
== END ==
LOC: ZZSENDIN 15:25
PROVIDERS: ATTEND Urology
DX: N18.9 Chronic kidney disease, unspecified (principal); Z86.718 Personal history of other venous thrombosis and embolism; I12.9 Hypertensive chronic kidney disease with stage 1 through stage 4 chronic kidney disease, or unspecified chronic kidney disease
CPT/HCPCS: 85610

== ENCOUNTER 2018-04-24 11:08 | Emergency (ER) | payer MEDICARE, BC ==
[2017-12-07 20:29] VITALS: Wt 66.2 kg
[~2018-04-24 11:08] MED LIST changes: +CAL667 PO
--- NOTE | 2018-04-24 11:25 | ER Report ---
History and Physical Time Seen By MD: 11:25 HPI/ROS CHIEF COMPLAINT: Shortness of breath HISTORY OF PRESENT ILLNESS: 77-year-old female patient presents to emergency room with complaint of shortness of breath. Patient states that this started l ast night. She states that she feels as if she is not able to get her breath. She states it is worse with activity. She denies any chest pain, nausea, vomiting or diarrhea. Patient has not taken any medication for this. Patient is on dialysis and has been for approximately 3 months. She states that she has a dialysis appointment today at 1145. Patient is also concerned she may have a urinary tract infection. Patient states that she does not feel well and often has that when she has urinary tract infection. She is not feeling any other symptoms of urinary tract infection. REVIEW OF SYSTEMS: Respiratory: As noted above Cardiovascular: No chest pain, no palpitations. Gastrointestinal: No vomiting, no abdominal pain. Musculoskeletal: No back pain. Allergies: Coded Allergies: Sulfa (Sulfonamide Antibiotics) (Verified Allergy, Intermediate, 04/24/18) latex (Verified Allergy, Mild, 04/24/18) Home Meds Active Scripts Hydrocodone Bit/Acetaminophen (HYDROCODON-ACETAMINOPHEN 5-325) 1 Each Tablet, 1 EACH PO Q4-6H PRN for PAIN, #12 TAB Prov:PARTHA OCONNOR [facility] 04/24/18 Cephalexin 500 Mg Tab (KEFLEX 500 MG TAB) 500 Mg Tablet, 500 MG PO DAILY, #7 TAB Prov:PARTHA OCONNOR [facility] 04/24/18 Reported Medications Calcium Acetate (CALCIUM ACETATE) 667 Mg Cap, 667 MG PO TIDCF, CAP 04/24/18 Carvedilol (CARVEDILOL) 3.125 Mg Tab, 3.125 MG PO BID, TAB 04/06/18 Ondansetron Hcl (ZOFRAN) 4 Mg Tablet, 4 MG PO Q8H PRN for NAUSEA, TAB 03/06/18 Acetaminophen (TYLENOL) 325 Mg Tablet, 650 MG PO Q6H, TAB 03/06/18 Metoprolol Tartrate (METOPROLOL TARTRATE) 25 Mg Tablet, 12.5 MG PO BID, TAB take .5 (1/2) of a 25mg tab morning and night 03/06/18 Cholecalciferol (Vitamin D3) (VITAMIN D3) 1,000 Unit Tablet, 5000 UNIT PO DAILY, TAB 03/06/18 Past Medical/Surgical History Patient has a past medical history of A. fib, UTI, left wrist fracture, diabetes, hypothyroidism. Patient has surgical history of hysterectomy. Reviewed Nurses Notes: Yes Hx Smoking: Yes (probably smokes once a month) Smoking Status: Current: Some Days Smoker Exposure to Second Hand Smoke?: No Hx Substance Use Disorder: No Hx Alcohol Use: No Constitutional Vital Sign - Last 24 Hours 04/24/18 04/24/18 04/24/18 04/24/18 11:21 11:24 11:24 11:30 Temp 97.7 Resp 14 B/P (MAP) 133/125 (128) 133/125 118/82 (94) Pulse Ox 92 O2 Delivery Room Air O2 Flow Rate 2.0 04/24/18 04/24/18 04/24/18 04/24/18 11:38 11:45 12:00 12:08 Pulse 138 158 Resp 12 11 B/P (MAP) 110/80 (90) 130/93 (105) Pulse Ox 92 93 04/24/18 04/24/18 04/24/18 04/24/18 12:15 12:20 12:30 12:45 Pulse 126 Resp 16 B/P (MAP) 132/81 (98) 113/82 (92) 134/84 (101) Pulse Ox 92 O2 Delivery Nasal Cannula O2 Flow Rate 2 04/24/18 04/24/18 04/24/18 04/24/18 12:50 13:00 13:05 13:15 Pulse 128 139 Resp 16 16 B/P (MAP) 133/96 (108) 134/86 (102) Pulse Ox 95 96 O2 Delivery Nasal Cannula Nasal Cannula O2 Flow Rate 2 2 04/24/18 04/24/18 04/24/18 04/24/18 13:30 13:35 13:45 14:00 Pulse 119 Resp 32 B/P (MAP) 113/97 (102) 129/104 (112) 99/80 (86) Pulse Ox 97 O2 Delivery Nasal Cannula O2 Flow Rate 2 04/24/18 04/24/18 04/24/18 04/24/18 14:05 14:15 14:20 14:30 Pulse 118 98 Resp 27 6 B/P (MAP) 142/58 (86) 141/85 (103) Pulse Ox 97 99 O2 Delivery Nasal Cannula Nasal Cannula O2 Flow Rate 2 2 04/24/18 04/24/18 14:45 14:50 Pulse 93 Resp 17 B/P (MAP) 138/81 (100) Pulse Ox 99 O2 Delivery Nasal Cannula O2 Flow Rate 2 Physical Exam General Appearance: The patient is alert, has no immediate need for airway protection and no current signs of toxicity. Respiratory: Chest is non tender, lungs are clear to auscultation. Cardiac: Patient is tachycardic with irregular heart rate Gastrointestinal: Abdomen is soft and non tender, no masses, bowel sounds normal. Musculoskeletal: Neck: Neck is supple and non tender. Extremities have full range of motion and are non tender. Skin: No rashes or lesions. DIFFERENTIAL DIAGNOSIS: After history and physical exam differential diagnosis was considered for shortness of breath including but not limited to pulmonary infectious process, COPD, asthma, pulmonary embolus and congestive heart failure. Medical Decision Making Data Points Result Diagram: 04/24/18 1133 04/24/18 1133 Laboratory Hematology Test 04/24/18 11:33 04/24/18 12:08 04/24/18 13:44 Red Blood Count 3.50 M/uL (4.17-5.56) Mean Corpuscular Volume 99.1 fL (80.0-96.0) Mean Corpuscular Hemoglobin 33.3 pg (26.0-33.0) Mean Corpuscular Hemoglobin Concent 33.6 g/dL (32.0-36.0) Red Cell Distribution Width 14.9 % (11.5-14.5) Mean Platelet Volume 8.1 fL (7.2-11.1) Neutrophils (%) (Auto) 75.1 % (39.4-72.5) Lymphocytes (%) (Auto) 16.0 % (17.6-49.6) Monocytes (%) (Auto) 6.9 % (4.1-12.4) Eosinophils (%) (Auto) 0.9 % (0.4-6.7) Basophils (%) (Auto) 1.1 % (0.3-1.4) Nucleated RBC Relative Count (auto) 0.0 /100WBC Neutrophils # (Auto) 5.4 K/uL (2.0-7.4) Lymphocytes # (Auto) 1.2 K/uL (1.3-3.6) Monocytes # (Auto) 0.5 K/uL (0.3-1.0) Eosinophils # (Auto) 0.1 K/uL (0.0-0.5) Basophils # (Auto) 0.1 K/uL (0.0-0.1) Nucleated RBC Absolute Count (auto) 0.00 K/uL Prothrombin Time 13.5 seconds (12.0-14.4) Prothromb Time International Ratio 1.03 Activated Partial Thromboplast Time 33 seconds (23-35) Sodium Level 138 mmol/L (137-145) Potassium Level 5.0 mmol/L (3.5-5.0) Chloride Level 105 mmol/L (98-107) Carbon Dioxide Level 21 mmol/L (22-31) Blood Urea Nitrogen 28 mg/dl (7-18) Creatinine 5.50 mg/dl (0.52-1.04) Glomerular Filtration Rate Calc 7.6 Random Glucose 103 mg/dl (75-110) Calcium Level 8.7 mg/dl (8.4-10.2) Total Bilirubin 0.6 mg/dl (0.2-1.3) Aspartate Amino Transf (AST/SGOT) 14 U/L (0-35) Alanine Aminotransferase (ALT/SGPT) 13 U/L (0-56) Alkaline Phosphatase 63 U/L (0-126) Troponin I 0.033 ng/ml Total Protein 6.7 g/dl (6.3-8.2) Urine Color [place]anna Urine Clarity Cloudy Urine pH 5.0 pH (4.8-9.5) Urine Specific [place] 1.018 Urine Protein 500 mg/dL (NEGATIVE) Urine Glucose (UA) Negative mg/dL (NEGATIVE) Urine Ketones Trace mg/dL (NEGATIVE) Urine Blood Large (NEGATIVE) Urine Nitrite Negative (NEGATIVE) Urine Bilirubin Negative (NEGATIVE) Urine Urobilinogen 2.0 mg/dL (0.2-1.9) Urine Leukocyte Esterase Large (NEGATIVE) Urine RBC 682 /HPF (0-2/HPF) Urine WBC 442 /HPF (0-5/HPF) Urine Squamous Epithelial Cells Many /LPF (NONE-FEW) Urine Bacteria Negative /HPF (NONE-FEW) Urine Mucus None /HPF (NONE-FEW) Pleural Fluid LDH 405 U/L Albumin 3.3 g/dl (3.5-5.0) Cholesterol Level 133 mg/dl (75-200) Chemistry Test 04/24/18 11:33 04/24/18 12:08 04/24/18 13:44 White Blood Count 7.2 k/uL (4.5-11.0) Red Blood Count 3.50 M/uL (4.17-5.56) Hemoglobin 11.7 g/dL (12.0-16.0) Hematocrit 34.7 % (34.0-47.0) Mean Corpuscular Volume 99.1 fL (80.0-96.0) Mean Corpuscular Hemoglobin 33.3 pg (26.0-33.0) Mean Corpuscular Hemoglobin Concent 33.6 g/dL (32.0-36.0) Red Cell Distribution Width 14.9 % (11.5-14.5) Platelet Count 178 K/uL (150-450) Mean Platelet Volume 8.1 fL (7.2-11.1) Neutrophils (%) (Auto) 75.1 % (39.4-72.5) Lymphocytes (%) (Auto) 16.0 % (17.6-49.6) Monocytes (%) (Auto) 6.9 % (4.1-12.4) Eosinophils (%) (Auto) 0.9 % (0.4-6.7) Basophils (%) (Auto) 1.1 % (0.3-1.4) Nucleated RBC Relative Count (auto) 0.0 /100WBC Neutrophils # (Auto) 5.4 K/uL (2.0-7.4) Lymphocytes # (Auto) 1.2 K/uL (1.3-3.6) Monocytes # (Auto) 0.5 K/uL (0.3-1.0) Eosinophils # (Auto) 0.1 K/uL (0.0-0.5) Basophils # (Auto) 0.1 K/uL (0.0-0.1) Nucleated RBC Absolute Count (auto) 0.00 K/uL Prothrombin Time 13.5 seconds (12.0-14.4) Prothromb Time International Ratio 1.03 Activated Partial Thromboplast Time 33 seconds (23-35) Glomerular Filtration Rate Calc 7.6 Calcium Level 8.7 mg/dl (8.4-10.2) Total Bilirubin 0.6 mg/dl (0.2-1.3) Aspartate Amino Transf (AST/SGOT) 14 U/L (0-35) Alanine Aminotransferase (ALT/SGPT) 13 U/L (0-56) Alkaline Phosphatase 63 U/L (0-126) Troponin I 0.033 ng/ml Total Protein 6.7 g/dl (6.3-8.2) Urine Color Roxanna Urine Clarity Cloudy Urine pH 5.0 pH (4.8-9.5) Urine Specific [place] 1.018 Urine Protein 500 mg/dL (NEGATIVE) Urine Glucose (UA) Negative mg/dL (NEGATIVE) Urine Ketones Trace mg/dL (NEGATIVE) Urine Blood Large (NEGATIVE) Urine Nitrite Negative (NEGATIVE) Urine Bilirubin Negative (NEGATIVE) Urine Urobilinogen 2.0 mg/dL (0.2-1.9) Urine Leukocyte Esterase Large (NEGATIVE) Urine RBC 682 /HPF (0-2/HPF) Urine WBC 442 /HPF (0-5/HPF) Urine Squamous Epithelial Cells Many /LPF (NONE-FEW) Urine Bacteria Negative /HPF (NONE-FEW) Urine Mucus None /HPF (NONE-FEW) Pleural Fluid LDH 405 U/L Albumin 3.3 g/dl (3.5-5.0) Cholesterol Level 133 mg/dl (75-200) Coagulation Test 04/24/18 11:33 Prothrombin Time 13.5 seconds Prothromb Time International Ratio 1.03 Activated Partial Thromboplast Time 33 seconds Urinalysis Test 04/24/18 12:08 Urine Color Roxanna Urine Clarity Cloudy Urine pH 5.0 pH (4.8-9.5) Urine Specific [place] 1.018 Urine Protein 500 mg/dL (NEGATIVE) Urine Glucose (UA) Negative mg/dL (NEGATIVE) Urine Ketones Trace mg/dL (NEGATIVE) Urine Blood Large (NEGATIVE) Urine Nitrite Negative (NEGATIVE) Urine Bilirubin Negative (NEGATIVE) Urine Urobilinogen 2.0 mg/dL (0.2-1.9) Urine Leukocyte Esterase Large (NEGATIVE) Urine RBC 682 /HPF (0-2/HPF) Urine WBC 442 /HPF (0-5/HPF) Urine Squamous Epithelial Cells Many /LPF (NONE-FEW) Urine Bacteria Negative /HPF (NONE-FEW) Urine Mucus None /HPF (NONE-FEW) Microbiology Microbiology Date/Time Source Procedure Growth Status 04/24/18 13:44 Pleural Fluid Gram Stain - Final Resulted 04/24/18 13:44 Pleural Fluid Body Fluid Culture Pending Resulted EKG/Imaging EKG Interpretation 12 lead EKG done at 1131: Rhythm: Atrial fibrillation with rapid ventricular response, ventricular rate of 155 bpm [place]: normal QRS: normal ST segments: normal 12 lead EKG done at 1428: Rhythm: normal sinus rhythm [place]: normal QRS: normal ST segments: normal Imaging Exam type: CHEST SINGLE AP History: SOB Comparison: June 23, 2017. Findings: There is opacification of the lower two thirds of the left thorax. This is likely in part related to a moderate to large left pleural effusion although underlying airspace consolidation may also contribute. This mild interstitial prominence seen throughout the right lung. The cardiac silhouette is difficult to evaluate due to the overlapping density in the left thorax. There is an implanted double lumen right-sided catheter with distal tip projecting over the right atrium IMPRESSION: 1. Opacification of the lower two thirds of the left thorax which is likely related to a moderate to large left pleural effusion. Underlying airspace consolidation may also contribute to the findings. Mild interstitial prominence in the right lung could be secondary to pulmonary vascular congestion versus interstitial infiltrate Report Dictated By: Guadalupe Moon MD at 04/24/2018 11:54 AM Report E-Signed By: Guadalupe Moon MD at 04/24/2018 11:56 AM ED Course/Re-evaluation ED Course Patient was admitted and examined, history and physical were obtained. Differential diagnoses were considered. On examination lungs are clear, heart is tachycardic and irregular, abdomen is soft and nontender. On initial exam and EKG was done and patient was in atrial fibrillation with a rapid ventricular response. A CBC, CMP, troponin, EKG, chest x-ray were done. Troponin came back at 0.033 which is negative. I believe have slightly elevated secondary to her poor kidney function. CBC and CMP were unremarkable. Chest x-ray did show a large left pleural effusion. I believe that is likely the cause of her shortness of breath may very well be the cause of her age and fibrillation. With patient's consent a thoracentesis was done as described below. Patient tolerated procedure well. Repeat x-ray was done which showed resolution of the pleural effusion. As we continue to monitor the patient did convert back to a normal sinus rhythm. A repeat EKG was done which confirmed that. I did discuss the case with Dr. Cody, general surgeon, giving him a heads up her dose was going on so that she can follow-up with him. He said that his office would contact her and make an appointment for a couple of days from now. I discussed this with the patient and her son and they verbalized understanding and agreement with plan. We will go ahead and discharge at this time to follow-up with dialysis. Procedure: Thoracentesis. Indication: Large pleural effusion After written informed consent I performed a thoracentesis. I explained to the patient the risk included pneumothorax, infection, and bleeding. The area on the posterior chest was prepped and draped in the usual fashion. The area was anesthetized with 1% lidocaine with epinephrine with adequate anesthesia. With a thoracentesis needle the left pleural cavity was aspirated at approximately the seventh intercostal space and fluid was collected. The appearance of the fluid was serosanguineous. The volume that was aspirated was 2300 cc of fluid. The patient tolerated the procedure well. There were no complications. Post procedure x-ray demonstrates no pneumothorax. The procedure was performed by myself under direct supervision of Dr. Whipple. Decision to Disposition Date: Apr 24, 2018 Decision to Disposition Time: 14:53 Depart Departure Latest Vital Signs Vital Signs Date Time Temp Pulse Resp B/P (MAP) Pulse Ox O2 Delivery O2 Flow Rate FiO2 04/24/18 14:50 93 17 99 Nasal Cannula 2 04/24/18 14:45 138/81 (100) 04/24/18 11:24 97.7 Impression: Primary Impression: Pleural effusion Additional Impressions: Atrial fibrillation with RVR UTI (urinary tract infection) Condition: Improved Disposition: HOME OR SELF-CARE Referrals: AVIS OLIVARES MD (PCP) AMIE CODY MD New Scripts Hydrocodone Bit/Acetaminophen (HYDROCODON-ACETAMINOPHEN 5-325) 1 Each Tablet 1 EACH PO Q4-6H PRN for PAIN, #12 TAB Prov: PARTHA OCONNOR 04/24/18 Cephalexin 500 Mg Tab (KEFLEX 500 MG TAB) 500 Mg Tablet 500 MG PO DAILY, #7 TAB Prov: PARTHA OCONNOR 04/24/18 Patient Instructions: Pleural Effusion (ED) Additional Instructions: Continue with fluid restriction. Follow up with Dr. Cody, his office will call in a day or two for an appointment. Return tot he ER if condition worsens. Follow up with Dr. Olivares in the next 1-2 weeks. You may go to dialysis today. Your atrial Fibrillation was likely caused by the fluid in your left lung and has resolved since removing the fluid. Problem Qualifiers Additional Impressions: UTI (urinary tract infection) Urinary tract infection type: acute cystitis Hematuria presence: with hematuria Qualified Codes: N30.01 - Acute cystitis with hematuria PARTHA OCONNOR Apr 24, 2018 11:25
[2018-04-24] MEDS ORDERED: ASPIRIN 81 MG CHEW PO ONE (11:30)
--- NOTE | 2018-04-24 11:38 | EKG ---
FACILITY: [facility] PATIENT NAME: NIKKO BARTLETT : [id number] MR: [id number] V: [id number] EXAM DATE: ORDERING PHYSICIAN: PARTHA OCONNOR TECHNOLOGIST: KATHERINE Test Reason : FAST HR Blood Pressure : / mmHG Vent. Rate : 155 BPM Atrial Rate : 187 BPM P-R Int : 000 ms QRS Dur : 068 ms QT Int : 308 ms P-R-T Axes : 000 -11 076 degrees QTc Int : 494 ms Atrial fibrillation with rapid ventricular response Nonspecific T wave abnormality Abnormal ECG When compared with ECG of 07-OCT-2017 13:29, Atrial fibrillation has replaced Sinus rhythm Confirmed by Jordan Rahman ([id number]) on 04/24/2018 4:51:23 PM Referred By: ELVIN Confirmed By:Jordan Ortiz
[2018-04-24 11:49] LABS: PLATELET COUNT, AUTOMATED 178 K/uL (150-450)
[2018-04-24] MEDS ORDERED: DILTIAZEM 5 MG/ML 5ML IVPUSH IVP ONE (11:55)
--- NOTE | 2018-04-24 12:00 | RADIOLOGY IMAGING REPORT ---
FAC[place] [facility] [place]IENT NAME: Luh Schneider : 1940 MR: [id number] V: [id number] EXAM DATE: ORDERING PHYSICIAN: PARTHA OCONNOR TECHNOLOGIST: Location: [facility] Patient: Luh Schneider : 1940 Visit/Account:[id number] Date of Sevice: 04/24/2018 Exam type: CHEST SINGLE AP History: SOB Comparison: June 23, 2017. Findings: There is opacification of the lower two thirds of the left thorax. This is likely in part related to a moderate to large left pleural effusion although underlying airspace consolidation may also contri bute. This mild interstitial prominence seen throughout the right lung. The cardiac silhouette is d ifficult to evaluate due to the overlapping density in the left thorax. There is an implanted double lumen right-sided catheter with distal tip projecting over the right atrium IMPRESSION: 1. Opacification of the lower two thirds of the left thorax which is likely related to a moderate to large left pleural effusion. Underlying airspace consolidation may also contribute to the findings. Mild interstitial prominence in the right lung could be secondary to pulmonary vascular congestion ve rsus interstitial infiltrate Report Dictated By: Guadalupe Moon MD at 04/24/2018 11:54 AM Report E-Signed By: Guadalupe Moon MD at 04/24/2018 11:56 AM WSN:[email or web address]
[2018-04-24 12:20] LABS: INR 1.03
[2018-04-24] MEDS ORDERED: cefTRIAXone 1 GM VIAL IVP ONE (12:45)
[2018-04-24] MEDS ORDERED: fentaNYL CITR 100 MCG/2 ML AMP IVP ONE (12:55)
[2018-04-24] MEDS ORDERED: LORazepam 2 MG/ML VIAL IVP ONE (12:55)
[2018-04-24] MEDS ORDERED: OCTYL CYANOACRYLATE 1 APP APPL TP ONE (13:50)
--- NOTE | 2018-04-24 14:33 | EKG ---
FACILITY: [facility] - [place] PATIENT NAME: NIKKO BARTLETT : [id number] MR: [id number] V: [id number] EXAM DATE: ORDERING PHYSICIAN: PARTHA OCONNOR TECHNOLOGIST: KATHERINE Test Reason : REPEAT ECG Blood Pressure : / mmHG Vent. Rate : 094 BPM Atrial Rate : 094 BPM P-R Int : 150 ms QRS Dur : 072 ms QT Int : 384 ms P-R-T Axes : 058 -18 060 degrees QTc Int : 480 ms Normal sinus rhythm Normal ECG When compared with ECG of 24-APR-2018 11:31, Sinus rhythm has replaced Atrial fibrillation Vent. rate has decreased BY 61 BPM Nonspecific T wave abnormality, improved in Lateral leads Confirmed by Jordan Rahman ([id number]) on 04/24/2018 4:51:40 PM Referred By: ELVIN Confirmed By:Jordan Ortiz
[2018-04-24 14:45] VITALS: BP 138/81
[2018-04-24] MEDS ORDERED: CEPH500T7 PO (14:49)
--- NOTE | 2018-04-24 14:49 | RADIOLOGY IMAGING REPORT ---
FACILITY: [facility] PATIENT NAME: Luh Schneider : 1940 MR: [id number] V: [id number] EXAM DATE: ORDERING PHYSICIAN: ELDA STARKEY TECHNOLOGIST: Location: [facility] [place] Patient: Luh Schneider : 1940 Visit/Account:[id number] Date of Sevice: 04/24/2018 Exam type: CHEST SPECIAL VIEW History: post thoracentesis Comparison: Single view chest performed earlier today Findings: There has been a marked interval reduction of the left pleural effusion which is no longer perceptibl e at this time. There is no evidence of a pneumothorax There is minimal linear stranding in the medi al left lung base which may represent small amount of subsegmental atelectasis. This mild elevation right hemidiaphragm and small amount of right basilar atelectasis. The cardiac silhouette remains st able as does the right-sided dialysis catheter. IMPRESSION: 1. There is been marked interval reduction of the left-sided pleural effusion when compared to the p rior study performed earlier today. No left pleural fluid is perceptible at this time. There is no evidence of a pneumothorax. There is minimal platelike atelectasis in the medial left lung base and mild atelectasis in the right lung base. Report Dictated By: Guadalupe Moon MD at 04/24/2018 2:42 PM Report E-Signed By: Guadalupe Moon MD at 04/24/2018 2:44 PM WSN:[email or web address]
[2018-04-24] MEDS ORDERED: HYDR-385 PO (18:46)
== END 2018-04-24 15:12 | disposition home or self-care (01) ==
LOC: ER 12:15
DX: J90 Pleural effusion, not elsewhere classified (principal); I48.91 Unspecified atrial fibrillation; N30.01 Acute cystitis with hematuria
CPT/HCPCS: 32554; 71045; 71046; 81001; 82042; 82150; 82465; 82945; 83615; 83986; 84157; 84484; 85025; 85610; 85730; 87071; 87073; 87088; 87205; 89060; 93005; 96374; 96375; 99285; A4353; A9270; J0696; J2060; J3010; J3490; 82040; 82247; 82310; 82374; 82435; 82565; 82947; 84075; 84132; 84155; 84295; 84450; 84460; 84520

== ENCOUNTER 2018-05-15 10:15 | Outpatient (RCR) | payer MEDICARE, BC ==
[2017-12-07 20:29] VITALS: BMI 25.7
[~2018-05-15 10:15] MED LIST changes: +DIALYSIS ACETAMINOPHEN 325 MG PO PRN; +HYDR-385 PO; +LIDOCAINE/SOD BICARB 8.4% SYR SC PRN; +LOPERAMIDE HCL 2 MG CAP PO PRN; +PROMETHAZINE HCL 25 MG TAB PO PRN; -VANC125C3 PO; +VANC125C4 PO; +diphenhydr DIALYSIS 50 MG/ML IVP PRN
[2018-05-15] MEDS: HEPARIN (PORCINE) 1000 UNIT/ML (DIALYSIS) IVP PRN ×2 (13:51)
[2018-05-17] MEDS: HEPARIN (PORCINE) 1000 UNIT/ML (DIALYSIS) IVP PRN ×2 (11:17)
[2018-05-20] MEDS ORDERED: HYDR-385 PO (08:51)
[2018-05-20] MEDS: HEPARIN (PORCINE) 1000 UNIT/ML (DIALYSIS) IVP PRN ×2 (12:04)
[2018-05-22] MEDS: HEPARIN (PORCINE) 1000 UNIT/ML (DIALYSIS) IVP PRN ×2 (13:47→13:48)
[2018-05-24] MEDS ORDERED: DARBEPOETIN ESRD 25 MCG/ML IVP PRN
[2018-05-24] MEDS: HEPARIN (PORCINE) 1000 UNIT/ML (DIALYSIS) IVP PRN ×2 (10:56→10:57)
[2018-05-27] MEDS: HEPARIN (PORCINE) 1000 UNIT/ML (DIALYSIS) IVP PRN ×2 (11:08)
[2018-05-29] MEDS: HEPARIN (PORCINE) 1000 UNIT/ML (DIALYSIS) IVP PRN ×2 (13:44→13:45)
[2018-05-31] MEDS: HEPARIN (PORCINE) 1000 UNIT/ML (DIALYSIS) IVP PRN ×2 (10:27)
[2018-06-03] MEDS: HEPARIN (PORCINE) 1000 UNIT/ML (DIALYSIS) IVP PRN ×2 (09:42)
[2018-06-05] MEDS: HEPARIN (PORCINE) 1000 UNIT/ML (DIALYSIS) IVP PRN ×2 (10:07)
[2018-06-05 11:39] LABS: PLATELET COUNT, AUTOMATED 130 K/uL (150-450)
[2018-06-05] MEDS: LIDOCAINE/PRILOCAINE 30GM TUBE TP PRN (12:59)
[2018-06-07] MEDS: HEPARIN (PORCINE) 1000 UNIT/ML (DIALYSIS) IVP PRN ×2 (09:52→09:53)
[2018-06-07] MEDS: DARBEPOETIN ESRD 25 MCG/ML IVP PRN (11:39)
[2018-06-10] MEDS: HEPARIN (PORCINE) 1000 UNIT/ML (DIALYSIS) IVP PRN ×2 (09:59)
[2018-06-12] MEDS: HEPARIN (PORCINE) 1000 UNIT/ML (DIALYSIS) IVP PRN ×2 (09:59→10:00)
[2018-06-12] MEDS: SODIUM FERRIC GLUC 62.5 MG/5ML IVP PRN (12:50)
[2018-06-14] MEDS: HEPARIN (PORCINE) 1000 UNIT/ML (DIALYSIS) IVP PRN ×2 (09:57→09:58)
[2018-06-14] MEDS: DARBEPOETIN ESRD 25 MCG/ML IVP PRN (12:00)
[2018-06-17] MEDS: HEPARIN (PORCINE) 1000 UNIT/ML (DIALYSIS) IVP PRN ×2 (09:49)
[2018-06-19] MEDS: HEPARIN (PORCINE) 1000 UNIT/ML (DIALYSIS) IVP PRN ×2 (09:50)
[2018-06-19] MEDS: SODIUM FERRIC GLUC 62.5 MG/5ML IVP PRN (10:14)
[2018-06-21] MEDS: HEPARIN (PORCINE) 1000 UNIT/ML (DIALYSIS) IVP PRN ×2 (09:51)
[2018-06-21] MEDS: DARBEPOETIN ESRD 25 MCG/ML IVP PRN (11:56)
[2018-06-21] MEDS ORDERED: DARBEPOETIN ESRD 25 MCG/ML IVP PRN (15:45)
[2018-06-24] MEDS: HEPARIN (PORCINE) 1000 UNIT/ML (DIALYSIS) IVP PRN ×2 (09:48)
[2018-06-26] MEDS: HEPARIN (PORCINE) 1000 UNIT/ML (DIALYSIS) IVP PRN ×2 (09:46)
[2018-06-26] MEDS: SODIUM FERRIC GLUC 62.5 MG/5ML IVP PRN (10:12)
[2018-06-26] MEDS: LIDOCAINE/PRILOCAINE 30GM TUBE TP PRN (10:18)
[2018-06-28] MEDS: HEPARIN (PORCINE) 1000 UNIT/ML (DIALYSIS) IVP PRN ×2 (10:37)
[2018-06-28] MEDS: DARBEPOETIN ESRD 25 MCG/ML IVP PRN (11:41)
[2018-07-01] MEDS: HEPARIN (PORCINE) 1000 UNIT/ML (DIALYSIS) IVP PRN ×2 (13:46)
[2018-07-03] MEDS: HEPARIN (PORCINE) 1000 UNIT/ML (DIALYSIS) IVP PRN ×2 (11:23)
[2018-07-03 11:49] LABS: PLATELET COUNT, AUTOMATED 193 K/uL (150-450)
[2018-07-03] MEDS: SODIUM FERRIC GLUC 62.5 MG/5ML IVP PRN (12:00)
[2018-07-05] MEDS: HEPARIN (PORCINE) 1000 UNIT/ML (DIALYSIS) IVP PRN ×2 (11:20)
[2018-07-05] MEDS: DARBEPOETIN ESRD 25 MCG/ML IVP PRN (12:21)
[2018-07-08] MEDS: HEPARIN (PORCINE) 1000 UNIT/ML (DIALYSIS) IVP PRN ×2 (11:22→11:23)
[2018-07-10] MEDS: HEPARIN (PORCINE) 1000 UNIT/ML (DIALYSIS) IVP PRN ×2 (11:08)
[2018-07-10] MEDS: SODIUM FERRIC GLUC 62.5 MG/5ML IVP PRN (11:32)
[2018-07-12] MEDS: HEPARIN (PORCINE) 1000 UNIT/ML (DIALYSIS) IVP PRN ×2 (11:30→11:31)
[2018-07-12] MEDS: DARBEPOETIN ESRD 25 MCG/ML IVP PRN (11:55)
[2018-07-12] MEDS: LIDOCAINE/PRILOCAINE 30GM TUBE TP PRN (14:49)
[2018-07-15] MEDS: HEPARIN (PORCINE) 1000 UNIT/ML (DIALYSIS) IVP PRN ×2 (12:40→12:41)
[2018-07-17] MEDS: HEPARIN (PORCINE) 1000 UNIT/ML (DIALYSIS) IVP PRN ×2 (11:20)
[2018-07-17 12:21] LABS: PLATELET COUNT, AUTOMATED 186 K/uL (150-450)
[2018-07-17] MEDS: SODIUM FERRIC GLUC 62.5 MG/5ML IVP PRN (12:27)
[2018-07-19] MEDS: HEPARIN (PORCINE) 1000 UNIT/ML (DIALYSIS) IVP PRN ×2 (11:08)
[2018-07-19] MEDS: DARBEPOETIN ESRD 25 MCG/ML IVP PRN (11:38)
[2018-07-22] MEDS: HEPARIN (PORCINE) 1000 UNIT/ML (DIALYSIS) IVP PRN ×2 (11:13)
[2018-07-24] MEDS: HEPARIN (PORCINE) 1000 UNIT/ML (DIALYSIS) IVP PRN ×2 (11:27)
[2018-07-24] MEDS: SODIUM FERRIC GLUC 62.5 MG/5ML IVP PRN (11:45)
[2018-07-26] MEDS: HEPARIN (PORCINE) 1000 UNIT/ML (DIALYSIS) IVP PRN ×2 (11:06)
[2018-07-26] MEDS: DARBEPOETIN ESRD 25 MCG/ML IVP PRN (11:55)
[2018-07-29] MEDS: HEPARIN (PORCINE) 1000 UNIT/ML (DIALYSIS) IVP PRN ×2 (11:34→11:35)
[2018-07-31] MEDS: HEPARIN (PORCINE) 1000 UNIT/ML (DIALYSIS) IVP PRN ×2 (11:07)
[2018-07-31] MEDS: SODIUM FERRIC GLUC 62.5 MG/5ML IVP PRN (11:35)
[2018-08-02] MEDS: HEPARIN (PORCINE) 1000 UNIT/ML (DIALYSIS) IVP PRN ×2 (11:09)
[2018-08-02] MEDS: DARBEPOETIN ESRD 25 MCG/ML IVP PRN (11:34)
[2018-08-02] MEDS ORDERED: FURO80TA10 PO (12:09)
[2018-08-02] MEDS: LIDOCAINE/PRILOCAINE 30GM TUBE TP PRN (14:52)
[2018-08-05] MEDS: HEPARIN (PORCINE) 1000 UNIT/ML (DIALYSIS) IVP PRN ×2 (11:14→11:15)
[2018-08-07] MEDS: HEPARIN (PORCINE) 1000 UNIT/ML (DIALYSIS) IVP PRN ×2 (11:13)
[2018-08-07] MEDS: SODIUM FERRIC GLUC 62.5 MG/5ML IVP PRN (12:17)
[2018-08-09] MEDS: HEPARIN (PORCINE) 1000 UNIT/ML (DIALYSIS) IVP PRN ×2 (11:09)
[2018-08-09] MEDS: DARBEPOETIN ESRD 25 MCG/ML IVP PRN (12:05)
[2018-08-12] MEDS: HEPARIN (PORCINE) 1000 UNIT/ML (DIALYSIS) IVP PRN ×2 (11:21)
[2018-08-14] MEDS: HEPARIN (PORCINE) 1000 UNIT/ML (DIALYSIS) IVP PRN ×2 (11:10)
[2018-08-14] MEDS: SODIUM FERRIC GLUC 62.5 MG/5ML IVP PRN (11:32)
[2018-08-16] MEDS ORDERED: DARBEPOETIN ESRD 25 MCG/ML IVP PRN
[2018-08-16] MEDS ORDERED: DARBEPOETIN ESRD 40MCG/ML IVP PRN
[2018-08-16] MEDS: HEPARIN (PORCINE) 1000 UNIT/ML (DIALYSIS) IVP PRN ×2 (11:15→11:16)
[2018-08-16] MEDS: LIDOCAINE/PRILOCAINE 30GM TUBE TP PRN (11:56)
[2018-08-16] MEDS: DARBEPOETIN ESRD IVP PRN (11:56)
[2018-08-19] MEDS: HEPARIN (PORCINE) 1000 UNIT/ML (DIALYSIS) IVP PRN ×2 (11:13)
[2018-08-21] MEDS: HEPARIN (PORCINE) 1000 UNIT/ML (DIALYSIS) IVP PRN ×2 (11:14→11:15)
[2018-08-21] MEDS: SODIUM FERRIC GLUC 62.5 MG/5ML IVP PRN (12:22)
[2018-08-23] MEDS: HEPARIN (PORCINE) 1000 UNIT/ML (DIALYSIS) IVP PRN ×2 (11:10)
[2018-08-23] MEDS: DARBEPOETIN ESRD IVP PRN (12:13)
[2018-08-26] MEDS: HEPARIN (PORCINE) 1000 UNIT/ML (DIALYSIS) IVP PRN ×2 (11:23)
[2018-08-28] MEDS: HEPARIN (PORCINE) 1000 UNIT/ML (DIALYSIS) IVP PRN ×2 (11:25)
[2018-08-28 12:20] LABS: PLATELET COUNT, AUTOMATED 171 K/uL (150-450)
[2018-08-28] MEDS: SODIUM FERRIC GLUC 62.5 MG/5ML IVP PRN (12:25)
[2018-08-30] MEDS: HEPARIN (PORCINE) 1000 UNIT/ML (DIALYSIS) IVP PRN ×2 (11:15)
[2018-08-30] MEDS: DARBEPOETIN ESRD 100 MCG/0.5ML SYR IVP PRN (12:28)
[2018-09-02] MEDS: HEPARIN (PORCINE) 1000 UNIT/ML (DIALYSIS) IVP PRN ×2 (11:27)
[2018-09-02] MEDS: LIDOCAINE/PRILOCAINE 30GM TUBE TP PRN (14:32)
[2018-09-04] MEDS: HEPARIN (PORCINE) 1000 UNIT/ML (DIALYSIS) IVP PRN ×2 (11:13)
[2018-09-04] MEDS: SODIUM FERRIC GLUC 62.5 MG/5ML IVP PRN (12:58)
[2018-09-06] MEDS: HEPARIN (PORCINE) 1000 UNIT/ML (DIALYSIS) IVP PRN ×2 (11:12)
[2018-09-06] MEDS: DARBEPOETIN ESRD 100 MCG/0.5ML SYR IVP PRN (11:38)
[2018-09-06] MEDS: SODIUM FERRIC GLUC 62.5 MG/5ML IVP PRN (11:38)
[2018-09-09] MEDS: HEPARIN (PORCINE) 1000 UNIT/ML (DIALYSIS) IVP PRN ×2 (11:16)
[2018-09-09] MEDS: SODIUM FERRIC GLUC 62.5 MG/5ML IVP PRN (11:41)
[2018-09-11] MEDS: HEPARIN (PORCINE) 1000 UNIT/ML (DIALYSIS) IVP PRN ×2 (11:26)
[2018-09-11] MEDS: SODIUM FERRIC GLUC 62.5 MG/5ML IVP PRN (11:48)
[2018-09-13] MEDS: HEPARIN (PORCINE) 1000 UNIT/ML (DIALYSIS) IVP PRN ×2 (11:07)
[2018-09-13] MEDS: DARBEPOETIN ESRD 100 MCG/0.5ML SYR IVP PRN (11:46)
[2018-09-13] MEDS: LIDOCAINE/PRILOCAINE 30GM TUBE TP PRN (11:46)
[2018-09-16] MEDS: HEPARIN (PORCINE) 1000 UNIT/ML (DIALYSIS) IVP PRN ×2 (10:36→10:37)
[2018-09-18] MEDS: HEPARIN (PORCINE) 1000 UNIT/ML (DIALYSIS) IVP PRN ×2 (10:43)
[2018-09-18] MEDS: SODIUM FERRIC GLUC 62.5 MG/5ML IVP PRN (11:33)
[2018-09-20] MEDS: HEPARIN (PORCINE) 1000 UNIT/ML (DIALYSIS) IVP PRN ×2 (10:53→10:54)
[2018-09-20] MEDS: DARBEPOETIN ESRD 100 MCG/0.5ML SYR IVP PRN (11:53)
[2018-09-23] MEDS: HEPARIN (PORCINE) 1000 UNIT/ML (DIALYSIS) IVP PRN ×2 (10:48→10:49)
[2018-09-25] MEDS: HEPARIN (PORCINE) 1000 UNIT/ML (DIALYSIS) IVP PRN ×2 (10:51)
[2018-09-25] MEDS: SODIUM FERRIC GLUC 62.5 MG/5ML IVP PRN (11:17)
[2018-09-25 11:41] LABS: PLATELET COUNT, AUTOMATED 183 K/uL (150-450)
[2018-09-27] MEDS: HEPARIN (PORCINE) 1000 UNIT/ML (DIALYSIS) IVP PRN ×2 (11:00)
[2018-09-30] MEDS: HEPARIN (PORCINE) 1000 UNIT/ML (DIALYSIS) IVP PRN ×2 (10:49)
[2018-10-02] MEDS: HEPARIN (PORCINE) 1000 UNIT/ML (DIALYSIS) IVP PRN ×2 (10:50)
[2018-10-02] MEDS: SODIUM FERRIC GLUC 62.5 MG/5ML IVP PRN (11:21)
[2018-10-04] MEDS: HEPARIN (PORCINE) 1000 UNIT/ML (DIALYSIS) IVP PRN ×2 (10:50)
[2018-10-07] MEDS: HEPARIN (PORCINE) 1000 UNIT/ML (DIALYSIS) IVP PRN ×2 (10:48→10:49)
[2018-10-09] MEDS: HEPARIN (PORCINE) 1000 UNIT/ML (DIALYSIS) IVP PRN ×2 (10:45)
[2018-10-09] MEDS: SODIUM FERRIC GLUC 62.5 MG/5ML IVP PRN (11:23)
[2018-10-09] MEDS: LIDOCAINE/PRILOCAINE 30GM TUBE TP PRN (11:23)
[2018-10-11] MEDS: HEPARIN (PORCINE) 1000 UNIT/ML (DIALYSIS) IVP PRN ×2 (10:47→10:48)
[2018-10-14] MEDS: HEPARIN (PORCINE) 1000 UNIT/ML (DIALYSIS) IVP PRN ×2 (10:43)
[2018-10-16] MEDS: HEPARIN (PORCINE) 1000 UNIT/ML (DIALYSIS) IVP PRN ×2 (10:32)
[2018-10-16] MEDS: SODIUM FERRIC GLUC 62.5 MG/5ML IVP PRN (11:04)
[2018-10-16 11:08] LABS: PLATELET COUNT, AUTOMATED 144 K/uL (150-450)
[2018-10-18] MEDS: HEPARIN (PORCINE) 1000 UNIT/ML (DIALYSIS) IVP PRN ×2 (10:42→10:43)
[2018-10-18] MEDS: DARBEPOETIN ESRD 25 MCG/ML IVP PRN (11:34)
[2018-10-21] MEDS: HEPARIN (PORCINE) 1000 UNIT/ML (DIALYSIS) IVP PRN ×2 (10:45)
[2018-10-23] MEDS: HEPARIN (PORCINE) 1000 UNIT/ML (DIALYSIS) IVP PRN ×2 (10:32)
[2018-10-23] MEDS: SODIUM FERRIC GLUC 62.5 MG/5ML IVP PRN (11:05)
[2018-10-25] MEDS: HEPARIN (PORCINE) 1000 UNIT/ML (DIALYSIS) IVP PRN ×2 (10:50)
[2018-10-25] MEDS: DARBEPOETIN ESRD 25 MCG/ML IVP PRN (11:48)
[2018-10-28] MEDS: HEPARIN (PORCINE) 1000 UNIT/ML (DIALYSIS) IVP PRN ×2 (10:50)
[2018-10-30] MEDS: HEPARIN (PORCINE) 1000 UNIT/ML (DIALYSIS) IVP PRN ×2 (10:46)
[2018-10-30] MEDS: SODIUM FERRIC GLUC 62.5 MG/5ML IVP PRN (11:41)
[2018-10-30] MEDS: LIDOCAINE/PRILOCAINE 30GM TUBE TP PRN (15:27)
[2018-11-01] MEDS: HEPARIN (PORCINE) 1000 UNIT/ML (DIALYSIS) IVP PRN ×2 (10:51)
[2018-11-01] MEDS: DARBEPOETIN ESRD 40MCG/ML IVP PRN (12:18)
[2018-11-04] MEDS: HEPARIN (PORCINE) 1000 UNIT/ML (DIALYSIS) IVP PRN ×2 (10:51→10:52)
[2018-11-06] MEDS: HEPARIN (PORCINE) 1000 UNIT/ML (DIALYSIS) IVP PRN ×2 (10:49)
[2018-11-06] MEDS: SODIUM FERRIC GLUC 62.5 MG/5ML IVP PRN (11:30)
[2018-11-08] MEDS: HEPARIN (PORCINE) 1000 UNIT/ML (DIALYSIS) IVP PRN ×2 (10:31)
[2018-11-08] MEDS: DARBEPOETIN ESRD 40MCG/ML IVP PRN (10:38)
[2018-11-11] MEDS: HEPARIN (PORCINE) 1000 UNIT/ML (DIALYSIS) IVP PRN ×2 (10:27→10:28)
[2018-11-13] MEDS: HEPARIN (PORCINE) 1000 UNIT/ML (DIALYSIS) IVP PRN ×2 (10:32→10:33)
[2018-11-13] MEDS: SODIUM FERRIC GLUC 62.5 MG/5ML IVP PRN (10:52)
[2018-11-15] MEDS: HEPARIN (PORCINE) 1000 UNIT/ML (DIALYSIS) IVP PRN ×2 (10:41→10:42)
[2018-11-15] MEDS: DARBEPOETIN ESRD 40MCG/ML IVP PRN (11:07)
[2018-11-18] MEDS: HEPARIN (PORCINE) 1000 UNIT/ML (DIALYSIS) IVP PRN ×2 (10:43→10:44)
[2018-11-20] MEDS: HEPARIN (PORCINE) 1000 UNIT/ML (DIALYSIS) IVP PRN ×2 (10:38→10:39)
[2018-11-20] MEDS: SODIUM FERRIC GLUC 62.5 MG/5ML IVP PRN (11:14)
[2018-11-22] MEDS: HEPARIN (PORCINE) 1000 UNIT/ML (DIALYSIS) IVP PRN ×2 (10:21)
[2018-11-22] MEDS: DARBEPOETIN ESRD 40MCG/ML IVP PRN (10:50)
[2018-11-25] MEDS: HEPARIN (PORCINE) 1000 UNIT/ML (DIALYSIS) IVP PRN ×2 (10:32)
[2018-11-27] MEDS: HEPARIN (PORCINE) 1000 UNIT/ML (DIALYSIS) IVP PRN ×2 (10:40)
[2018-11-27] MEDS: LIDOCAINE/PRILOCAINE 30GM TUBE TP PRN (10:46)
[2018-11-27] MEDS: SODIUM FERRIC GLUC 62.5 MG/5ML IVP PRN (10:46)
[2018-11-29] MEDS: HEPARIN (PORCINE) 1000 UNIT/ML (DIALYSIS) IVP PRN ×2 (10:39→10:40)
[2018-11-29] MEDS: DARBEPOETIN ESRD 40MCG/ML IVP PRN (11:07)
[2018-12-02] MEDS: HEPARIN (PORCINE) 1000 UNIT/ML (DIALYSIS) IVP PRN ×2 (10:53)
[2018-12-04] MEDS: HEPARIN (PORCINE) 1000 UNIT/ML (DIALYSIS) IVP PRN ×2 (10:48)
[2018-12-04] MEDS: SODIUM FERRIC GLUC 62.5 MG/5ML IVP PRN (11:35)
[2018-12-04 11:49] LABS: PLATELET COUNT, AUTOMATED 162 K/uL (150-450)
[2018-12-06] MEDS: HEPARIN (PORCINE) 1000 UNIT/ML (DIALYSIS) IVP PRN ×2 (10:46)
[2018-12-06] MEDS: DARBEPOETIN ESRD 40MCG/ML IVP PRN (11:21)
[2018-12-09] MEDS: HEPARIN (PORCINE) 1000 UNIT/ML (DIALYSIS) IVP PRN ×2 (10:46)
[2018-12-11] MEDS: HEPARIN (PORCINE) 1000 UNIT/ML (DIALYSIS) IVP PRN ×2 (10:47)
[2018-12-11] MEDS: SODIUM FERRIC GLUC 62.5 MG/5ML IVP PRN (11:31)
[2018-12-13] MEDS: HEPARIN (PORCINE) 1000 UNIT/ML (DIALYSIS) IVP PRN ×2 (10:51)
[2018-12-13] MEDS: DARBEPOETIN ESRD 40MCG/ML IVP PRN (11:56)
[2018-12-16] MEDS: HEPARIN (PORCINE) 1000 UNIT/ML (DIALYSIS) IVP PRN ×2 (10:45)
[2018-12-16] MEDS: LIDOCAINE/PRILOCAINE 30GM TUBE TP PRN (13:28)
[2018-12-18] MEDS: HEPARIN (PORCINE) 1000 UNIT/ML (DIALYSIS) IVP PRN ×2 (10:18)
[2018-12-18] MEDS: SODIUM FERRIC GLUC 62.5 MG/5ML IVP PRN (12:45)
[2018-12-20] MEDS: HEPARIN (PORCINE) 1000 UNIT/ML (DIALYSIS) IVP PRN ×2 (10:29)
[2018-12-20] MEDS: DARBEPOETIN ESRD 40MCG/ML IVP PRN (12:22)
[2018-12-23] MEDS: HEPARIN (PORCINE) 1000 UNIT/ML (DIALYSIS) IVP PRN ×2 (10:44)
[2018-12-25] MEDS: HEPARIN (PORCINE) 1000 UNIT/ML (DIALYSIS) IVP PRN ×2 (10:36)
[2018-12-25] MEDS: SODIUM FERRIC GLUC 62.5 MG/5ML IVP PRN (11:07)
[2018-12-25 11:19] LABS: PLATELET COUNT, AUTOMATED 175 K/uL (150-450)
[2018-12-27] MEDS: HEPARIN (PORCINE) 1000 UNIT/ML (DIALYSIS) IVP PRN ×2 (10:42→10:43)
[2018-12-27] MEDS: DARBEPOETIN ESRD 40MCG/ML IVP PRN (11:13)
[2018-12-30] MEDS: HEPARIN (PORCINE) 1000 UNIT/ML (DIALYSIS) IVP PRN ×2 (10:50)
[2019-01-01] MEDS ORDERED: CEPH500C24 PO (11:24)
[2019-01-01] MEDS: HEPARIN (PORCINE) 1000 UNIT/ML (DIALYSIS) IVP PRN ×2 (11:44→11:45)
[2019-01-01] MEDS: SODIUM FERRIC GLUC 62.5 MG/5ML IVP PRN (12:04)
[2019-01-03] MEDS: HEPARIN (PORCINE) 1000 UNIT/ML (DIALYSIS) IVP PRN ×2 (10:48)
[2019-01-03] MEDS: DARBEPOETIN ESRD 40MCG/ML IVP PRN (11:24)
== END 2019-01-11 ==
LOC: DIAL 10:15
PROVIDERS: ATTEND Internal Medicine Nephrology
DX: I95.3 Hypotension of hemodialysis (principal); I82.411 Acute embolism and thrombosis of right femoral vein; E11.9 Type 2 diabetes mellitus without complications; Z99.2 Dependence on renal dialysis; G93.40 Encephalopathy, unspecified; E87.2 Acidosis; N17.9 Acute kidney failure, unspecified; N39.0 Urinary tract infection, site not specified; D50.0 Iron deficiency anemia secondary to blood loss (chronic); N18.6 End stage renal disease; I12.0 Hypertensive chronic kidney disease with stage 5 chronic kidney disease or end stage renal disease; B96.1 Klebsiella pneumoniae [K. pneumoniae] as the cause of diseases classified elsewhere; Z79.4 Long term (current) use of insulin
CPT/HCPCS: 82040; 82108; 82247; 82306; 82310; 82374; 82465; 82565; 82728; 82947; 83036; 83540; 83550; 83970; 84075; 84100; 84132; 84295; 84460; 84478; 84520; 85018; 85025; 86580; 86706; 87340; 90999; A4657; G0472; J0882; J2916; 86803

== ENCOUNTER → 2018-05-17 | Outpatient (CLI) | payer MEDICARE, BC ==
[2017-12-07 20:29] VITALS: BMI 25.7
[~2018-05-17] MED LIST changes: -DIALYSIS ACETAMINOPHEN 325 MG PO PRN; -LIDOCAINE/SOD BICARB 8.4% SYR SC PRN; -LOPERAMIDE HCL 2 MG CAP PO PRN; -PROMETHAZINE HCL 25 MG TAB PO PRN; +VANC125C3 PO; -VANC125C4 PO; -diphenhydr DIALYSIS 50 MG/ML IVP PRN
--- NOTE | 2018-05-17 11:36 | RADIOLOGY IMAGING REPORT ---
FACILITY: [facility] - [place] PATIENT NAME: Luh Schneider : 1940 MR: [id number] V: [id number] EXAM DATE: ORDERING PHYSICIAN: AMIE CODY TECHNOLOGIST: Location: [facility] [place] Patient: Luh Schneider : 1940 Visit/Account:[id number] Date of Sevice: 05/17/2018 Exam type: CHEST PA LAT History: pleural effusion Comparison: April 24, 2018. Findings: There is been reaccumulation of the left pleural effusion that appears small to moderate at this time . Is also dense airspace consolidation in the left lower lobe with air bronchograms present. Right lung is free of acute consolidation. The cardiac silhouette remains stable. There is an implanted r ight-sided dialysis catheter appears unchanged vena cava umbrella is seen in the upper right-sided th e abdomen. Vascular coils are seen in the left upper abdomen IMPRESSION: 1. Interval reaccumulation of the left pleural effusion appears small to moderate Dense airspace consolidation left lower lobe with air bronchograms Report Dictated By: Guadalupe Moon MD at 05/17/2018 11:28 AM Report E-Signed By: Guadalupe Moon MD at 05/17/2018 11:32 AM WSN:[email or web address]
== END ==
LOC: RAD 10:41
PROVIDERS: ATTEND Surgery
DX: J91.8 Pleural effusion in other conditions classified elsewhere (principal)
CPT/HCPCS: 71046

== ENCOUNTER → 2018-05-31 | Outpatient (CLI) | payer MEDICARE, BC ==
[2017-12-07 20:29] VITALS: BMI 25.7
--- NOTE | 2018-05-31 10:23 | RADIOLOGY IMAGING REPORT ---
FACILITY: [facility] - [place] PATIENT NAME: Luh Schneider : 1940 MR: [id number] V: [id number] EXAM DATE: ORDERING PHYSICIAN: AMIE CODY TECHNOLOGIST: [place]: [facility] [place] Patient: Luh Schneider : 1940 Visit/Account:[id number] Date of Sevice: 05/31/2018 Exam type: CHEST PA LAT History: Pleural effusions Comparison: May 17, 2018. Findings: Small to moderate left pleural effusion appears partially decreased. There is also been partial decr ease of the left basilar airspace consolidation. The right lung is free of consolidation. The cardi ac silhouette remains stable. There is an implanted dialysis catheter distal tip projects over the s uperior vena cava. Vascular coils are seen in the upper abdomen. Incompletely imaged is a vena cava umbrella to the right of midline in the upper abdomen IMPRESSION: 1. Small to moderate left pleural effusion is partially decreased when compared to the prior study Left basilar airspace consolidation partially decreased Report Dictated By: Guadalupe Moon MD at 05/31/2018 10:17 AM Report E-Signed By: Guadalupe Moon MD at 05/31/2018 10:18 AM WSN:[email or web address]
== END ==
LOC: RAD 08:41
PROVIDERS: ATTEND Surgery
DX: J90 Pleural effusion, not elsewhere classified (principal)
CPT/HCPCS: 71046

== ENCOUNTER 2018-08-11 18:39 | Emergency (ER) | payer MEDICARE, BC ==
[2017-12-07 20:29] VITALS: Wt 66.3 kg
[~2018-08-11 18:39] MED LIST changes: +FURO80TA10 PO; -VANC125C3 PO; +VANC125C4 PO
[2018-08-11 18:46] VITALS: BP 181/97
--- NOTE | 2018-08-11 18:48 | ER Report ---
History and Physical Time Seen By MD: 18:48 HPI/ROS CHIEF COMPLAINT: Fall HISTORY OF PRESENT ILLNESS: This is a 77-year-old female presents emergency department for a fall. Patient states she emptying her trash from her prior to arrival, she tripped over some bushes fell down, hit the right side of her head on the ground, denies loss of consciousness. She also sustained an injury to her right wrist. And a small abrasion to her right knee. She declines a tetanus update. She does have very small contusion to the right cheek. Small amount of swelling to the right wrist, CMS intact.. REVIEW OF SYSTEMS: Constitutional: No fever, no chills. Eyes: No discharge. ENT: No sore throat. Cardiovascular: No chest pain, no palpitations. Respiratory: No cough, no shortness of breath. Gastrointestinal: No abdominal pain, no vomiting. Genitourinary: No hematuria. Musculoskeletal: As above. Skin: No rashes. Neurological: As above. Allergies: Coded Allergies: Sulfa (Sulfonamide Antibiotics) (Verified Allergy, Intermediate, 08/11/18) latex (Verified Allergy, Mild, 08/11/18) Home Meds Reported Medications Furosemide (LASIX) 80 Mg Tablet, 80 MG PO QAM, TAB 08/02/18 Calcium Acetate (CALCIUM ACETATE) 667 Mg Cap, 1334 MG PO TIDCF, CAP take two 667mg capsules with each meal 04/24/18 Carvedilol (CARVEDILOL) 3.125 Mg Tab, 3.125 MG PO BID, TAB 04/06/18 Ondansetron Hcl (ZOFRAN) 4 Mg Tablet, 4 MG PO Q8H PRN for NAUSEA, TAB 03/06/18 Acetaminophen (TYLENOL) 325 Mg Tablet, 650 MG PO Q6H, TAB 03/06/18 Metoprolol Tartrate (METOPROLOL TARTRATE) 25 Mg Tablet, 12.5 MG PO BID, TAB take .5 (1/2) of a 25mg tab morning and night 03/06/18 Cholecalciferol (Vitamin D3) (VITAMIN D3) 1,000 Unit Tablet, 2000 UNIT PO DAILY, TAB 03/06/18 Past Medical/Surgical History The patient has a past medical and surgical history of atrial fibrillation, RVR, DVT, hypertension, pyelonephritis, urinary tract infections, left wrist fracture , wears reading glasses, possible type II diabetes, hysterectomy. Reviewed Nurses Notes: Yes Hx Smoking: Yes (probably smokes once a month) Smoking Status: Current: Some Days Smoker Exposure to Second Hand Smoke?: No Hx Substance Use Disorder: No Hx Alcohol Use: No Constitutional Vital Sign - Last 24 Hours 08/11/18 18:46 Temp 97.8 Pulse 113 Resp 14 B/P (MAP) 181/97 Pulse Ox 95 O2 Delivery Room Air Physical Exam General Appearance: The patient is alert, has no immediate need for airway protection and no signs of toxicity. Eyes: Pupils equal and round no pallor or injection. EOMs intact. ENT, Mouth: Mucous membranes are moist. Respiratory: There are no retractions, lungs are clear to auscultation. Cardiovascular: Regular rate and rhythm. Gastrointestinal: Abdomen is soft and non tender, no masses, bowel sounds normal. Neurological: Alert and oriented 4. Moving all extremities. Following all commands. No focal neuro deficits. Skin: Warm and dry, no rashes. Musculoskeletal: Neck is supple non tender. Extremities Examination of the Right hand reveals no acute deformity, there is mild swelling. The patient is able to give a thumbs up sign, is able to make an okay sign, and is able to AB duct the fingers. Sensation is intact over the dorsal 1st web space, the volar aspect of the 2nd finger, and the volar aspect of the 5th finger. Capillary refill is brisk. DIFFERENTIAL DIAGNOSIS: After history and physical exam differential diagnosis was considered for subdural bleed, skull fracture, contusion, subluxation, wrist fracture. Medical Decision Making EKG/Imaging Imaging Location: [facility] Patient: Luh Schneider : 1940 Visit/Account:[id number] Date of Sevice: 08/11/2018 EXAMINATION: Right wrist radiographs 3 views HISTORY: Fall. Right wrist pain. COMPARISON: None. FINDINGS: PA, lateral and oblique views of the right wrist are obtained. Bones: Acute slightly impacted transverse fracture of the metaphysis of the distal right radius. Acute nondisplaced fracture of the ulnar styloid. Osteopenia. Joint spaces: Negative. Hardware: None. Alignment: Normal. Soft tissues: Negative. IMPRESSION: Acute fractures of the distal right radius and and of the right ulnar styloid. Report Dictated By: Collins Fragoso MD at 08/11/2018 7:40 PM Report E-Signed By: Collins Fragoso MD at 08/11/2018 7:43 PM WSN:[id number] EXAMINATION: Head CT without intravenous contrast HISTORY: Fall. Right wrist pain. COMPARISON: None. TECHNIQUE: Contiguous axial images were obtained from the skull base to the vertex without intravenous contrast. Sagittal and coronal reformatted images are also submitted. One of the following dose optimization techniques was utilized in the performance of this exam: Automated exposure control; adjustment of the mA and/or kV according to the patient's size; or use of an iterative reconstruction technique. Specific details can be referenced in the facility's radiology CT exam operational policy. FINDINGS: Brain and intracranial structures: Ventricles and sulci are normal in size for patient's age. Mild patchy hypoattenuation in the white matter. Musa-white matter differentiation is maintained. The basal cisterns are patent. No midline shift, acute hemorrhage, acute infarct, or mass. Vessels: Mild calcification of the carotid siphons and intracranial vertebral arteries. Calvarium / scalp: Negative. Skull base / visualized face: Negative. Visualized sinuses / orbits: Moderate mucosal thickening in the right maxillary sinus. Small mucous retention cyst in the left maxillary sinus. Mild mucosal thickening in the ethmoid air cells. IMPRESSION: No acute intracranial abnormality. Mild patchy hypoattenuation in the white matter, probably chronic small vessel ischemic changes. Report Dictated By: Collins Fragoso MD at 08/11/2018 7:44 PM Report E-Signed By: Collins Fragoso MD at 08/11/2018 7:51 PM WSN:[email or web address] ED Course/Re-evaluation ED Course The patient was admitted to room. A history and physical were obtained. Differential diagnoses were considered. X-ray of the right wrist showing a distal radial fracture with a fracture of the ulnar styloid. Negative head CT. I did review the results with the patient. She was placed in a sugar tong and sling, instructed to follow-up with [facility] for reevaluation this week. Patient will take ibuprofen or Tylenol as needed for pain. Patient expressed understanding was discharged home. Procedure: Splint placement. A right sugar tong splint was applied. After application of the splint I returned and re-examined the patient. The splint was adequately immobilizing the joint and distal to the splint the patient's circulation and sensation was intact. Decision to Disposition Date: Aug 11, 2018 Decision to Disposition Time: 20:15 Depart Departure Latest Vital Signs Vital Signs Date Time Temp Pulse Resp B/P (MAP) Pulse Ox O2 Delivery O2 Flow Rate FiO2 08/11/18 18:46 97.8 113 14 181/97 95 Room Air Impression: Primary Impression: Right wrist fracture Additional Impression: Fall Condition: Improved Disposition: HOME OR SELF-CARE Referrals: AVIS SANTOYO MD (PCP) GREG GEORGE MD 5 Days Patient Instructions: Wrist Fracture in Adults (ED) Additional Instructions: Please keep the splint on until you follow up with [facility] this week for reevaluation. Use the sling for comfort. Take Ibuprofen or Tylenol as needed for pain. Drink plenty of water. Get plenty of rest. Return to the ED for any other concerns or worsening symptoms. Keep the arm elevated to the level of the heart when sitting. Problem Qualifiers Primary Impression: Right wrist fracture Encounter type: initial encounter Fracture type: closed Qualified Codes: S62.101A - Fracture of unspecified carpal bone, right wrist, initial encounter for closed fracture Additional Impression: Fall Encounter type: initial encounter Qualified Codes: W19.XXXA - Unspecified fall, initial encounter JOAO BOP- Aug 11, 2018 18:48
[2018-08-11] MEDS ORDERED: ONDANSETRON 4 MG ODT TABDP SL ONE (18:55)
--- NOTE | 2018-08-11 19:47 | RADIOLOGY IMAGING REPORT ---
FACILITY: [facility] - [place] PATIENT NAME: Luh Schneider : 1940 MR: [id number] V: [id number] EXAM DATE: ORDERING PHYSICIAN: JOAO BO TECHNOLOGIST: Location: [facility] Patient: Luh Schneider : 1940 Visit/Account:[id number] Date of Sevice: 08/11/2018 EXAMINATION: Right wrist radiographs 3 views HISTORY: Fall. Right wrist pain. COMPARISON: None. FINDINGS: PA, lateral and oblique views of the right wrist are obtained. Bones: Acute slightly impacted transverse fracture of the metaphysis of the distal right radius. Acu te nondisplaced fracture of the ulnar styloid. Osteopenia. Joint spaces: Negative. Hardware: None. Alignment: Normal. Soft tissues: Negative. IMPRESSION: Acute fractures of the distal right radius and and of the right ulnar styloid. Report Dictated By: Collins Fragoso MD at 08/11/2018 7:40 PM Report E-Signed By: Collins Fragoso MD at 08/11/2018 7:43 PM WSN:[id number]
--- NOTE | 2018-08-11 19:54 | RADIOLOGY IMAGING REPORT ---
[facility] PATIENT NAME: Luh Schneider : 1940 MR: [id number] V: [id number] EXAM DATE: ORDERING PHYSICIAN: JOAO BO TECHNOLOGIST: Location: [facility] Patient: Luh Schneider : 1940 Visit/Account:[id number] Date of Sevice: 08/11/2018 EXAMINATION: Head CT without intravenous contrast HISTORY: Fall. Right wrist pain. COMPARISON: None. TECHNIQUE: Contiguous axial images were obtained from the skull base to the vertex without intraven ous contrast. Sagittal and coronal reformatted images are also submitted. One of the following dose optimization techniques was utilized in the performance of this exam: Autom ated exposure control; adjustment of the mA and/or kV according to the patient's size; or use of an i terative reconstruction technique. Specific details can be referenced in the facility's radiology C T exam operational policy. FINDINGS: Brain and intracranial structures: Ventricles and sulci are normal in size for patient's age. Mild p atchy hypoattenuation in the white matter. Musa-white matter differentiation is maintained. The basal cisterns are patent. No midline shift, acute hemorrhage, acute infarct, or mass. Vessels: Mild calcification of the carotid siphons and intracranial vertebral arteries. Calvarium / scalp: Negative. Skull base / visualized face: Negative. Visualized sinuses / orbits: Moderate mucosal thickening in the right maxillary sinus. Small mucous retention cyst in the left maxillary sinus. Mild mucosal thickening in the ethmoid air cells. IMPRESSION: No acute intracranial abnormality. Mild patchy hypoattenuation in the white matter, probably chronic small vessel ischemic changes. Report Dictated By: Collins Fragoso MD at 08/11/2018 7:44 PM Report E-Signed By: Collins Fragoso MD at 08/11/2018 7:51 PM WSN:[id number]
== END 2018-08-11 20:23 | disposition home or self-care (01) ==
LOC: ER 18:49
DX: S62.101A Fracture of unspecified carpal bone, right wrist, initial encounter for closed fracture (principal)
CPT/HCPCS: 29125; 70450; 73110; 99284; A4565; Q0162; S0119

== ENCOUNTER 2019-01-01 09:34 | Emergency (ER) | payer MEDICARE, BC ==
[2017-12-07 20:29] VITALS: Wt 66.3 kg
--- NOTE | 2019-01-01 10:00 | ER Report ---
History and Physical Time Seen By MD: 09:56 Hx. of Stated Complaint: LEFT BACK PAIN INTERMITTENTLY X2 WEEKS HPI/ROS Complicated history of UTI turned pyleo turned renal hemorrhage and subsequent dialysis. Now on dialysis M/W/F. Presents with left flank pain worsening for 2-3 days. Unable to sleep last night. No dysuria/hematuria. No fever/chills. No abdominal pain. No trauma. No n/v. No chest pain. Remainder of the 14 system rev: Yes Allergies: Coded Allergies: Sulfa (Sulfonamide Antibiotics) (Verified Allergy, Intermediate, 01/01/19) latex (Verified Allergy, Mild, 01/01/19) Home Meds Active Scripts Cephalexin Monohydrate (CEPHALEXIN) 500 Mg Cap, 500 MG PO Q12H for 10 Days, #20 CAP 0 Refills Prov:NIKOLAS SOTELO MD 01/01/19 Reported Medications Furosemide (LASIX) 80 Mg Tablet, 240 MG PO QAM, TAB 08/02/18 Calcium Acetate (CALCIUM ACETATE) 667 Mg Cap, 1334 MG PO TIDCF, CAP take three 667mg capsules with each meal 04/24/18 Carvedilol (CARVEDILOL) 3.125 Mg Tab, 3.125 MG PO BID, TAB 04/06/18 Ondansetron Hcl (ZOFRAN) 4 Mg Tablet, 4 MG PO Q8H PRN for NAUSEA, TAB 03/06/18 Acetaminophen (TYLENOL) 325 Mg Tablet, 650 MG PO Q6H, TAB 03/06/18 Metoprolol Tartrate (METOPROLOL TARTRATE) 25 Mg Tablet, 12.5 MG PO BID, TAB take .5 (1/2) of a 25mg tab morning and night 03/06/18 Reviewed Nurses Notes: Yes Old Medical Records Reviewed: Yes Hx Smoking: Yes (probably smokes once a month) Smoking Status: Current: Some Days Smoker Exposure to Second Hand Smoke?: No Hx Substance Use Disorder: No Hx Alcohol Use: No Constitutional Vital Sign - Last 24 Hours 01/01/19 01/01/19 01/01/19 01/01/19 09:34 09:40 09:44 10:00 Temp 98.4 Pulse ??? 100 Resp 20 B/P (MAP) 151/78 (102) 151/78 122/95 (104) Pulse Ox 94 O2 Delivery Room Air 01/01/19 01/01/19 01/01/19 01/01/19 10:04 10:30 10:34 11:00 Pulse 90 91 B/P (MAP) 164/87 (112) 156/83 (107) Pulse Ox 95 93 01/01/19 11:04 Pulse 100 Pulse Ox 90 Physical Exam General Appearance: The patient is alert, has no immediate need for airway protection and no current signs of toxicity. Eyes: Pupils equal and round no injection. Respiratory: Chest is non tender, lungs are clear to auscultation. Cardiac: regular rate and rhythm Gastrointestinal: Abdomen is soft and non tender, no masses, bowel sounds normal . Musculoskeletal: Mild TTP of the left lumar para-spinal region with very mild midline TTP of L3/4 Skin: No rashes or lesions. DIFFERENTIAL DIAGNOSIS: After history and physical exam differential diagnosis was considered for back pain including but not limited to muscular pain, herniated disc, spine fracture, intra-abdominal causes and urinary tract infection. Medical Decision Making Data Points Laboratory Urinalysis Test 01/01/19 09:39 Urine Color Yellow Urine Clarity Turbid Urine pH 9.0 pH (4.8-9.5) Urine Specific [place] 1.010 Urine Protein 100 mg/dL (NEGATIVE) Urine Glucose (UA) Negative mg/dL (NEGATIVE) Urine Ketones Negative mg/dL (NEGATIVE) Urine Blood Large (NEGATIVE) Urine Nitrite Negative (NEGATIVE) Urine Bilirubin Negative (NEGATIVE) Urine Urobilinogen Negative mg/dL (0.2-1.9) Urine Leukocyte Esterase Large (NEGATIVE) Urine RBC 229 /HPF (0-2/HPF) Urine WBC 2941 /HPF (0-5/HPF) Urine WBC Clumps Many /HPF Urine Squamous Epithelial Cells None /LPF (</=FEW) Urine Bacteria Few /HPF (NONE-FEW) Urine Mucus None /HPF (NONE-FEW) ED Course/Re-evaluation ED Course Complicated renal history including UTI's, pyelonephritis, now on dialysis. She presented with left lower lumbar paraspinal back pain. No dysuria or hematuria. No fever or chills. No trauma. I think this pain is more musculoskeletal, her UA is notable for a possible infection. A culture has been sent. 2 to her complicated medical history, I started her on Keflex for possible UTI. Her last urine culture was sensitive to Keflex. She does not appear clinically as if she has an acute infection, but given her history I will start her on abx until the cultures return. She will go directly to dialysis today. Decision to Disposition Date: Jan 01, 2019 Decision to Disposition Time: 11:18 Depart Departure Latest Vital Signs Vital Signs Date Time Temp Pulse Resp B/P (MAP) Pulse Ox O2 Delivery O2 Flow Rate FiO2 01/01/19 11:04 100 90 01/01/19 11:00 156/83 (107) 01/01/19 09:44 98.4 20 Room Air Impression: Primary Impression: UTI (urinary tract infection) Condition: Improved Disposition: HOME OR SELF-CARE Referrals: AVIS SANTOYO MD (PCP) New Scripts Cephalexin Monohydrate (CEPHALEXIN) 500 Mg Cap 500 MG PO Q12H for 10 Days, #20 CAP 0 Refills Prov: NIKOLAS SOTELO MD 01/01/19 Patient Instructions: Urinary Tract Infection in Women (ED) Problem Qualifiers Primary Impression: UTI (urinary tract infection) Urinary tract infection type: acute cystitis Hematuria presence: without hematuria Qualified Codes: N30.00 - Acute cystitis without hematuria NKIOLAS SOTELO MD Jan 01, 2019 10:00
[2019-01-01] MEDS ORDERED: LIDOCAINE 5% PATCH TP SCH (10:10)
--- NOTE | 2019-01-01 10:50 | RADIOLOGY IMAGING REPORT ---
FACILITY: [facility] PATIENT NAME: Luh Schneider : 1940 MR: [id number] V: [id number] EXAM DATE: ORDERING PHYSICIAN: NIKOLAS SOTELO TECHNOLOGIST: Location: [facility] [place] Patient: Luh Schneider : 1940 Visit/Account:[id number] Date of Sevice: 01/01/2019 Lumbar spine radiographs, 3 views COMPARISON: Lumbar spine radiographs dated 06/23/2017. FINDINGS: 3 views of the lumbar spine were obtained. There is mild scoliosis. Multiple metallic coils are noted in the left mid abdomen posteriorly. There is moderate to severe facet arthropathy of the lower lumbar spine particularly at L4-L5 and L5-S1. D isc spaces are overall well-maintained with some mild to moderate height loss at L3-L4, L4-L5 and L5- S1. No spondylolysis or spondylolisthesis. No evidence of acute compression fracture. No osseous lyti c or destructive lesion. SI joints appear unremarkable. IMPRESSION: Moderate degenerative changes of the lower lumbar spine without evidence of acute fracture or subluxa tion. There is mild scoliosis. Report Dictated By: Shadi Mathew MD at 01/01/2019 10:38 AM Report E-Signed By: Shadi Mathew MD at 01/01/2019 10:42 AM WSN:[id number]
[2019-01-01 11:00] VITALS: BP 156/83
[2019-01-01] MEDS ORDERED: CEPH500C24 PO (11:24)
[2019-01-01] MEDS ORDERED: PATCH REMOVAL 1 EA TP SCH (21:00)
== END 2019-01-01 11:28 | disposition home or self-care (01) ==
LOC: ER 10:08
DX: N30.00 Acute cystitis without hematuria (principal)
CPT/HCPCS: 72100; 81001; 87088; 99283; A9270